=== PATIENT | female | born 1945 | race Caucasian/White ===

== ENCOUNTER → 2023-10-25 14:29 | Outpatient (REF) | payer OTHER, SELFPAY | LOC: HWRAD 14:29 | PROVIDERS: ATTENDING PHYSICIAN Internal Medicine | DX: Z78.0 Asymptomatic menopausal state (principal) | CPT/HCPCS: 77080 ==

== ENCOUNTER 2024-06-13 13:48 | Inpatient (IN) | payer OTHER, SELFPAY ==
[2024-06-13] VITALS (11 sets, daily range): BP systolic 98–143; BP diastolic 51–128; BMI 25.7
[2024-06-13 08:49] LABS: Glucose - Point of Care 93 mg/dl (70-99)
--- NOTE | 2024-06-13 08:55 | ED.GENMED ---
History of Present Illness
General
Chief Complaint: Weakness
Time Seen by Provider: 06/13/24 08:37
History of Present Illness
History of Present Illness:
79-year-old female with history of ulcerative colitis on Remicade presents to the emergency department for evaluation of generalized weakness and diarrhea. He reports it has been worsening since her last Remicade infusion which was approximately 6
weeks ago, she is due for her next infusion in 3 days. She denies any pain. She was noted to be hypoglycemic in the 30s for EMS and given oral glucose. Bedside glucose on arrival is 93. Copious voluminous diarrhea present on arrival, this has
been going on for several days. She reports general p.o. intake has been poor.
Past History
Past History
ED Past Medical History: CVA (September 2016), HTN, Psychiatric (Anxiety, depression), Other (Inflammatory bowel disease, Colitis, Cellulitis,) and Other (Episode of hyponatremia, sodium of 117 September 2016.)
ED Past Surgical History: Appendectomy and Other (Partial large bowel RESECTION)
Social History
Tobacco: Non-smoker
Alcohol: None
Drug: None
Personal:
Living: with family (lives with son)
Employment: Retired
Family History
Family History: Other (Noncontributory)
Review of Systems
Review of Systems
Allergies reviewed?: Yes
All Other Systems: ROS reviewed and negative except as documented in HPI and ROS
Phy Exam
Physical Exam
Physical Exam:
GEN: Ill-appearing, generally pale
HEENT: Oral mucosa moist, no scleral icterus
Cardiac: Regular rate and rhythm, no murmur
Lung: Mildly tachypneic, no respiratory distress otherwise, diminished left lung sounds
Abdomen: Soft, nontender
Rectal: Copious voluminous yellow diarrhea. 2 x 1 cm sacral decubitus ulcer with approximately 1 cm of depth, mild surrounding erythema but no overt cellulitic changes
MSK: No gross deformity or injuries
Skin: Good color, no pallor or jaundice, no rashes
Neuro: Appears weak but is alert, oriented x 3, moves all extremities appropriately but generally weak
Psych: Calm, cooperative
Course
Orders/Labs/Results
Orders:
Orders
06/13/24
Electrocardiogram (*1) Stat
Comment: ALREADY DONE
06/13/24 08:51
Straight cath- Treatment ONCE
06/13/24 08:52
CR Chest Portable - 1 View Urgent
Comment:
Reason For Exam: weakness
Reason Study Needs to be Portable: Other
06/13/24 09:04
Complete Blood Count/With Diff Urgent
Comprehensive Metabolic Panel Urgent
Lipase Urgent
Magnesium Urgent
TSH Urgent
Comment: ADD ON
Urinalysis Reflex To Culture Urgent
Date Specimen was Collected: 06/13/24
Time Specimen was Collected: 09:02
Urine Microscopic Reflex Cult Urgent
Urine Culture Urgent
CROW Source: U
Specimen Description:
Obtained by: Random
Date Specimen was Collected: 06/13/24
Time Specimen was Collected: 09:02
06/13/24 09:33
Add On- LAB Urgent
Tests Added?: TSH
06/13/24 11:06
0.9% Sodium Chloride 500 ml [Nss] 500 ml IV BOLUS
CefTRIAXone [Rocephin] 1,000 mg IV NOW STA
06/13/24 13:22
Admit/Transfer Patient As Directed
Co-Sign Provider:
Level of Care: Inpatient admission
Assign to:: Medical/Surgical
Physician / Group: pineda fall
Diagnosis: acute diarrhea, ?UC
Reason for Hospitalization: poor po intake, iv hydration, ?UC flare
Expected length of stay greater than two midnights?: Yes
ELOS- Estimated Length of Stay in days: 3
I certify the patient meets the requirements for IP care: Yes
PRN Pain Medication Management As Directed
May give lesser potent ordered pain med per pt: Yes
preference::
Protocol:: Medication orders for pain may be administered in a
manner that supports deferring to patient preference
when the pt is:
- Requesting an ordered lesser potent pain medication.
Least to most potent pain medications are defined
as: acetaminophen < NSAID < tramadol < opioids
(morphine, oxycodone, hydromorphone).
- Requesting a lesser dose of the same medication IF
ORDERED.
- Requesting a less intrusive route of administration
if both routes are prescribed by the provider (PO <
IV).
06/13/24 13:33
Code Status As Directed
Resuscitation Status: Full Code
06/13/24 13:36
Abdomen/Pelvis wo Contrast CT [CT Abd/pelvis Wo Iv Cont] Routine
Comment:
Reason For Exam: diarrhea, intermittent eval for ?uc flare
CRP [C-Reactive Protein] Stat
Calprotectin, Fecal [S] Stat
ESR [Erythrocyte Sed Rate] Stat
Norovirus by PCR Stat
CROW Source: Feces/Stool
Specimen Description:
06/13/24 13:37
Stool Culture Routine
CROW Source: Feces/Stool
Specimen Description:
06/13/24 14:00
Dextrose 5%/0.45%Sodchl 1000ML [D5/0.45%NaCl] 1,000 ml IV 84 mls/hr
Flush (0.9% Sodium Chloride) [Flush (Nss)] See Dose Instructions IV PER PROTOCOL
Abnormal Lab Results
06/13/24 06/13/24
09:04 09:43
Hgb 11.8 L g/dL
(12.0-16.0)
MCHC 31.6 L g/dL
(33.0-37.0)
RDW 14.6 H %
(11.5-14.5)
Abs Immat Gran (auto) 0.1 H 10^3/uL
(0-0.05)
Absolute Monos (auto) 0.8 H 10^3/uL
(0.1-0.6)
Immature Gran % 1.2 H %
(0-0.5)
Neutrophils % 41.8 L %
(42.2-75.2)
Monocytes % 11.6 H %
(1.7-9.3)
Eosinophils % 6.3 H %
(0-6)
Carbon Dioxide 20 L mmol/L
(22-30)
BUN 27 H mg/dl
(7-17)
Glucose 133 H mg/dl
(70-99)
Albumin 3.4 L g/dl
(3.5-5.0)
Urine Ketones 3+ A
(Negative)
Ur Occult Blood Reflex 2+ A
(Negative)
Urine Nitrite (Reflex) Positive A
(Negative)
Leukocyte Esterase Rfl 2+ A
(Negative)
Urine RBC 3-6 A /HPF
(0-2)
Urine WBC (Reflex) 11-15 A /HPF
(0-5)
Urine Bacteria (Reflex) Few A
(Negative)
Urine Albumin (Reflex) 2+ A
(Neg - Trace)
POC Glucose 100 H mg/dl
(70-99)
06/13/24 09:04
06/13/24 09:04
Vital Signs
Initial and Last Documented VS:
Initial Vital Signs
Pulse Resp BP
76 17 106/89
06/13/24 08:58 06/13/24 08:58 06/13/24 08:58
Last Documented Vital Signs
Temp Pulse Resp BP Pulse Ox
96.0 F L 89 24 117/97 98
06/13/24 09:09 06/13/24 13:15 06/13/24 13:15 06/13/24 12:00 06/13/24 13:00
MDM/Problems Addressed
MDM/Problems Addressed:
Patient is profoundly weak, this could be in part due to her hypoglycemia which is most likely secondary to poor p.o. intake. Urine does look positive for UTI. Unclear etiology of diarrhea but labs are overall unremarkable. Will admit for IV
antibiotics and further inpatient management
*Critical Care Note
Total Time (30-74mins, 75-104mins- exclusive of procedures): Not Applicable
ED Attending Note
-
Portions of this chart may have been created with voice recognition software.� Occasional wrong word or��sound alike� substitutions may have occurred due to the inherent limitations of voice recognition software.
Discharge Plan
Departure
Patient Disposition: Admit
Date of Disposition: 06/13/24
Time of Disposition: 11:07
Admit to: Med/Surg
Presentation/result/management discussed w/ accepting MD/DO: Hospitalist
Discharge Problem:
Generalized weakness, Urinary tract infection
Interventions
Interventions:
*Risk Screen - Suicide Last Done: 06/13/24 08:37
*General Assessment Last Done: 06/13/24 08:37
*Neglect/Abuse Screening Last Done: 06/13/24 09:06
*ED- Fall Risk Assessment Last Done: 06/13/24 09:03
*ED COVID-19 Vaccine History Last Done: 06/13/24 08:37
ED- Cardiac Assessment Last Done: 06/13/24 08:37
ED- Neurological Assessment Last Done: 06/13/24 08:37
ED- Pulmonary Assessment Last Done: 06/13/24 08:37
[2024-06-13 09:15] LABS: % Basophils 0.3 % (0-2); % Eosinophils 6.3 % (0-6); % Immature Granulocytes 1.2 % (0-0.5); % Lymphocytes 38.8 % (20.5-51.1); % Monocytes 11.6 % (1.7-9.3); % Neutrophils 41.8 % (42.2-75.2); Absolute Eosinophils 0.4 10^3/uL (0-0.7); Absolute Immature Granulocytes 0.1 10^3/uL (0-0.05); Absolute Lymphocytes 2.6 10^3/uL (1.2-3.4); Absolute Monocytes 0.8 10^3/uL (0.1-0.6); Absolute Neutrophils 2.8 10^3/uL (1.4-6.5); Hematocrit 37.4 % (37.0-47.0); Hemoglobin 11.8 g/dL (12.0-16.0); Mean Corp Hgb Conc. 31.6 g/dL (33.0-37.0); Mean Corpuscular Hgb 27.8 pg (27.0-31.0); Mean Platelet Volume 9.8 fL (7.4-10.4); Nucleated Red Blood Cells % 0 %; Platelet Count 284 10^3/uL (130-400); Red Blood Cell Count 4.25 10^6/uL (4.20-5.40); Red Cell Dist. Width 14.6 % (11.5-14.5); White Blood Cell Count 6.8 10^3/uL (4.8-10.8)
[2024-06-13 09:29] LABS: ALT (SGPT) 11 U/L (0-35); AST (SGOT) 26 U/L (14-36); Albumin 3.4 g/dl (3.5-5.0); Alkaline Phosphatase 72 U/L (38-126); Blood Urea Nitrogen 27 mg/dl (7-17); Calcium 8.8 mg/dl (8.4-10.2); Carbon Dioxide 20 mmol/L (22-30); Chloride 104 mmol/L (98-107); Estimated Creatinine Clearance 45 ml/min; Glucose 133 mg/dl (70-99); Magnesium 1.6 mg/dl (1.6-2.3); Potassium 4.3 mmol/L (3.5-5.1); Sodium 138 mmol/L (135-145); Total Bilirubin 0.7 mg/dl (0.2-1.3); Total Protein 6.5 g/dl (6.3-8.2); eGFR > 60.00
[2024-06-13 09:30] LABS: Urine Albumin 2+ (Neg - Trace); Urine Bilirubin Negative (Negative); Urine Character Clear (Clear); Urine Color Yellow; Urine Glucose Negative (Negative); Urine Ketone 3+ (Negative); Urine Leukocyte 2+ (Negative); Urine Nitrite Positive (Negative); Urine Occult Blood 2+ (Negative); Urine Specific Gravity 1.025 (<1.030); Urine Urobilinogen Negative (Neg - 1+)
[2024-06-13 09:44] LABS: Glucose - Point of Care 100 mg/dl (70-99)
[2024-06-13 09:47] LABS: Lipase 50 U/L (23-300)
[2024-06-13 10:39] LABS: Urine Squamous Cell 0-2 /LPF (Few)
[2024-06-13 10:40] LABS: Urine Bacteria Few (Negative)
[2024-06-13 10:58] LABS: TSH 0.98 uIU/ml (0.47-4.68)
[2024-06-13] MEDS: NSS 500 IV (11:23)
[2024-06-13] MEDS: ROCEPHIN 1000 MG IV (11:23)
--- NOTE | 2024-06-13 13:38 | CON.GI ---
Addendum entered and electronically signed by Pedro Rousseau MD 06/13/24 16:45:
QTc 511 will hold zofran and do pepcid bid to see if helps
Addendum entered and electronically signed by Pedro Rousseau MD 06/13/24 16:42:
I added zofran for nausea hold off on PPI
Addendum entered and electronically signed by Pedro Rousseau MD 06/13/24 16:36:
The patient was seen and examined by me independently in collaboration with the nurse practitioner.
Past medical history/social history/medications/allergies/family history reviewed.
Lab data and imaging data reviewed.
Ms. Jones is a 78-year-old female with ulcerative colitis on Remicade 5 mg/kg q8 weeks (started in 2020)�underwent colonoscopy March 2023 with Ward 1previously in remission with good levels and no antibodies. She was previously experiencing
diarrhea back in March/April2023 (and was admitted for this) with ?C diff as stool cultures showed antigen positive but toxin negative and was treated with oral vancomycin. Fecal calprotectin had been significantly elevated at that time
(1040), but has since trended downwards, to 799, and most recently to 321 June 2023 no repeat since then. Now fecal calpro 06/02 1150 - I called pt she was having diarrhea I recommended stool studies. She was too weak to have done so she came to
hospital. She is having 4-6 BM/day, only 1 nocturnal BM, only one episode with blood for the last week. C/o nausea, loss of appetite, 5 lb weight loss. No antibiotics, no sick contacts.
CT ordered by ER limited no po/iv contrast has renal cyst recommend follow up. CRP 85.
Recommendations:
- Stool studies
- If negative, plan steroids (on pred 2 mg at home with history of 'relative adenal insufficiency' saw endocrine in May do not have these records) and flex sig d/w pt agreeable
- Clear liquid diet for now
- Check IFX level/ab tomorrow, due for IFX 06/15 may need high dose 10 mg/kg pending work up/findings I sent msg to pharmacy to ensure we have IFX in stock
Original Note:
Consultation
-
Date/Time Consultation Requested: 06/13/24 1330
Date/Time Consultation Performed: 06/13/24 1400
Requesting Provider: Zak Coyle MD
Performing Provider: ROSLYN Cordova, Sissy Pelayo DO
Reason for Consultation: diarrhea, weakness hx UC
Medical History
Chief Complaint / HPI
Chief Complaint: diarrhea, Nausea, anorexia
History of Present Illness:
Patient is a 79yo with hx CVA, GERD, HTN, hyperlipidemia, anxiety/depression, diverticulosis, osteoarthritis on chronic steroids, gout, anemia with iron deficiency, cellulitis, hyponatremia, prior c-diff infection, vitamin D deficiency, HH, and
long standing ulcerative colitis for many years. She had technician terminal and repeater follow with Dr. Will then switch to Dr. Rousseau. She has been technician terminal and repeater Mesalamine than admitted in 2020 with flare requiring start of Remicade and noted C-diff ag + tox neg with
treatment. She has colonoscopy in March 2023 with ward 1 and remission with good levels and no antibodies. When seen last in office in March 2024 she was having 1 loose stool per week. Her fecal calpro improved with Remicade used down to
321 06/2023 then most recent testing up to 1150 in May. She now admits to increased non bloody diarrhea over last 6 week. She was recommended stool studies but states she was too weak to complete. She was also due for Infliximab level 06/15.
She admits to few lbs wt loss, decreased appetite and increased nausea.
She now admits to 4-5 watery stools daily with frequency and urgency. She denies dysphagia, GERD, vomiting, abdominal pain, constipation or rectal bleeding. She denies recent travel, abx or sick contacts. On admission lab with hbg 11.8,
platelet 284, WBC 6.8, stable chemistry with creat 0.8, glucose 133, albumin 3.[address], CRP and ESR pending to be done.
--03/30/23 Colonoscopy, Dr. Villar: The examined portion of the ileum was normal. Pancolitis ulcerative colitis. Inflammation was found from the rectum to the cecum. This was graded as Ward Score 1 (mild disease). Biopsied. Internal hemorrhoids. Bx
showed chronic moderately active colitis.
--02/18/2021 colonoscopy, Dr. Rousseau: Fair prep. Ileum appeared normal. Moderately active Ward score 2 ulcerative pancolitis. A single solitary ulcer in the rectum. Internal hemorrhoids. Colonic biopsies showing mild to moderate chronic active
colitis. Small intestinal biopsies negative.
Past Medical History
Past Medical History: CVA, GERD, HTN, Hypercholesterolemia, Psychiatric (anxiety/depression) and Other (Ulcerative colitis longstanding(1998), diverticulosis, osteoarthritis, gout, anemia with iron deficiency, cellulitis, hyponatriemia, prior
c-diff infection, vitamin D deficiency, HH)
Past Surgical History: Appendectomy, , Orthopedic (carpel tunnel ) and Other (partial large bowel resection, thigh abscess, cataract surgery)
Social History
Tobacco: Non-Smoker
Alcohol: None
Drug: None
Living: With Family (lives with son)
Employment: Retired
Family History
Family History: Other (no family hx Ulcerative colitis or crohns )
Allergies / Home Medications
Allergy/AdvReac Type Severity Reaction Status Date / Time
No Known Allergies Allergy Verified 03/24/23 09:45
�Medication �Instructions �Recorded
atorvastatin 40 mg tablet 40 mg PO QPM High cholesterol 11/28/18
fluoxetine 10 mg capsule 10 mg PO DAILY #30 caps 07/22/19
potassium chloride 20 mEq 20 meq PO DAILY Electrolyte 02/09/21
tablet,extended Repletion
release(part/cryst) (Klor-Con M)
infliximab 100 mg intravenous 100 mg IV Q7W Ulcerative colitis 03/24/23
solution (Remicade)
oxybutynin chloride 5 mg tablet 5 mg PO DAILY Urinary Issue 03/24/23
Lactobac no.2-Bifidobac no.1-S. 1 cap PO DAILY 06/13/24
thermo 112.5 billion cell capsule
(Visbiome)
acetaminophen 325 mg tablet 650 mg PO Q6HPRN PRN mild pain 06/13/24
(Tylenol)
ascorbic acid (vitamin C) 1,000 mg 1,000 mg PO DAILY 06/13/24
tablet (Vitamin C)
biotin 10,000 mcg chewable tablet 10,000 mcg PO DAILY 06/13/24
(Hair, Skin and Nails (biotin))
calcium carbonate 1,000 mg PO DAILY 06/13/24
magnesium oxide 200 mg PO DAILY 06/13/24
oxybutynin chloride 10 mg 10 mg PO QPM 06/13/24
tablet,extended release 24 hr
prednisone 1 mg tablet 2 mg PO DAILY 06/13/24
zinc sulfate 50 mg zinc (220 mg) 50 mg PO DAILY 06/13/24
tablet
Review of Systems
-
History Source: Patient
Constitutional: Reports Weight Loss (few lbs ) and Fatigue
EENT: Reports No Symptoms
Respiratory: Reports No Symptoms
Cardiac: Reports No Symptoms
Abdomen/GI: Reports Nausea and Diarrhea (with frequency and urgency )
: Reports No Symptoms
Musculoskeletal: Reports Joint Pain
Skin: Reports No Symptoms
Neurological: Reports Weakness
Endocrine: Reports No Symptoms
Hematologic/Lymphatic: Reports No Symptoms
Vital Signs
Temp Pulse Resp BP Pulse Ox
96.0 F L 89 24 117/97 98
06/13/24 09:09 06/13/24 13:15 06/13/24 13:15 06/13/24 12:00 06/13/24 13:00
Physical Exam
Exam
General: Other (pale and weak appearing )
HEENT: Normocephalic
Respiratory: Clear
Cardiac: Regular Rhythm
GI: Soft, Non Tender and Non Distended
Musculoskeletal: No Clubbing and No Cyanosis
Skin: Warm and Dry
Neuro: Awake, Alert and AO x 3
Psych: Calm
Results
WBC 6.8 10^3/uL (4.8-10.8) 06/13/24 09:04
Hgb 11.8 g/dL (12.0-16.0) L 06/13/24 09:04
Hct 37.4 % (37.0-47.0) 06/13/24 09:04
MCV 88.0 fL (81.0-99.0) 06/13/24 09:04
Plt Count 284 10^3/uL (130-400) 06/13/24 09:04
Absolute Neuts (auto) 2.8 10^3/uL (1.4-6.5) 06/13/24 09:04
Sodium 138 mmol/L (135-145) 06/13/24 09:04
Potassium 4.3 mmol/L (3.5-5.1) 06/13/24 09:04
Chloride 104 mmol/L (98-107) 06/13/24 09:04
Carbon Dioxide 20 mmol/L (22-30) L 06/13/24 09:04
BUN 27 mg/dl (7-17) H 06/13/24 09:04
Creatinine 0.8 mg/dL (0.6-1.0) 06/13/24 09:04
Calcium 8.8 mg/dl (8.4-10.2) 06/13/24 09:04
Total Bilirubin 0.7 mg/dl (0.2-1.3) 06/13/24 09:04
AST 26 U/L (14-36) 06/13/24 09:04
ALT 11 U/L (0-35) 06/13/24 09:04
Alkaline Phosphatase 72 U/L (38-126) 06/13/24 09:04
Lipase 50 U/L (23-300) 06/13/24 09:04
Diagnostic Image Results:
06/13/24 CT pending
Prior GI Procedures:
EGD: 01/2016 will - Z-line regular, 33 cm from the incisors.
- Medium-sized hiatus hernia.
- Chronic gastritis. Biopsied.
- Acute duodenitis. Biopsied.
bx neg h pylori, celiac, metaplasia
Colonoscopy:
--03/30/23 Colonoscopy, Dr. Villar: The examined portion of the ileum was normal. Pancolitis ulcerative colitis. Inflammation was found from the rectum to the cecum. This was graded as Ward Score 1 (mild disease). Biopsied. Internal hemorrhoids. Bx
showed chronic moderately active colitis.
--02/18/2021 colonoscopy, Dr. Rousseau: Fair prep. Ileum appeared normal. Moderately active Ward score 2 ulcerative pancolitis. A single solitary ulcer in the rectum. Internal hemorrhoids. Colonic biopsies showing mild to moderate chronic active
colitis. Small intestinal biopsies negative.
Assessment / Plan
-
Patient is a 79yo with hx CVA, GERD, HTN, hyperlipidemia, anxiety/depression, diverticulosis, osteoarthritis on chronic steroids, gout, anemia with iron deficiency, cellulitis, hyponatremia, prior c-diff infection, vitamin D deficiency, HH, and
long standing ulcerative colitis for many years. She had skilled nursing follow with Dr. Will then switch to Dr. Rousseau. She has been technician terminal and repeater Mesalamine than admitted in 2020 with flare requiring start of Remicade and noted C-diff ag + tox neg with
treatment. She has colonoscopy in March 2023 with ward 1 and remission with good levels and no antibodies. When seen last in office in March 2024 she was having 1 loose stool per week. Her fecal calpro improved with Remicade used down to
321 06/2023 then most recent testing up to 1150 in May. She now admits to increased non bloody diarrhea over last 6 week. She was recommended stool studies but states she was too weak to complete. She was also due for Infliximab level 06/15.
She admits to few lbs wt loss, decreased appetite and increased nausea.
-diarrhea/weakness
-nausea with decreased appetite
-hx ulcerative colitis with elevated fecal sherin 1150 in May 2024
-chronic steroid use with hx UC and osteoarthritis
-hx anemia with iron deficiency
other med problems:
-CVA
-GERD/hx HH per prior EGD
-HTN
-hyperlipidemia
-anxiety/depression
-diverticulosis
-gout
-hx cellulitis
-prior c-diff infection
PLAN:etiology of diarrhea related to infectious etiology, vs UC flare vs other
She also has decreased appetite and nausea with K replacement and oral steroids
check stool studies to rule out c-diff or other infectious etiology
CT pending to be done
CRP, ESR pending recent fecal sherin 1150 done outpatient
agree wit hydration
keep electrolytes corrected
will hold oral mag with diarrhea and check in AM -- give IV for now if needed
add PPI daily with nausea --pt has been on oral K and steroids if nausea not improving consider EGD
t/c IV steroid course if stools neg-- pt was on chronic prednisone 2 mg prior to admission
t/c flex if not improving
due Infliximab level 06/15-- last dose at home infusion about 6 weeks ago
ok for clear diet will add supplement daily
antiemetics
will follow
-
-
Thank you for consultation and allowing me to participate in the patient's care. Please call the senior recruitment consultant GI physician during the after hours with any questions or concerns.
--- NOTE | 2024-06-13 13:50 | HPS.HSE ---
Family Physician
-
Family Physician: Hannah Decker DO
Chief Complaint
-
weakness/ poor po intake
History of Present Illness
79 female history of ulcerative colitis on Remicade q. 7 weeks, failure to thrive, stroke, hypertension, anxiety depression, GERD presents for weakness and poor p.o. intake that has been progressively getting worse over the last 1.5 weeks that has
been associated with watery very loose stools, 3-5 BMs daily. PRV eating due to diarrhea however diarrhea persist even when she does not eat. Additionally, wakes her up from her sleep to have to go take a bowel movement. Nothing makes this
diarrhea better.
Preadmission labs hypoglycemia in the 30s
While in the ED hypothermic to 96.0 otherwise hemodynamically stable, CBC unremarkable apart from hemoglobin 11.8 along with a BMP that is unremarkable apart from a bicarb of 20, BUN of 27, glucose of 133 with albumin of 3.4 and a [id number]
glucose of 100. Urine analysis demonstrating 3+ ketones, 2+ blood, positive nitrites, leuk esterase 2+, RBC 3-6, white blood cell 11-15, bacteria few, albumin 2+. Was provided with IV fluids IV antibiotics for treatment of UTI though does not have
symptoms of a UTI as there is no dysuria flank pain urinary frequency.
Social history does not smoke drink alcohol or use drugs
Lives with her family
Surgical history appendectomy carpal tunnel surgery cataract surgery x 2, partial colon resection
Medical History
Past Medical History
Past Medical History: Reports GERD, HTN and Hypercholesterolemia
Past Surgical History: Reports Appendectomy
Social History
Tobacco: Non-smoker
Alcohol: None
Drug: None
Living: With Family
Family History
Family History: Not pertinent
Allergies / Home Medications
Allergies reflects when Allergies were last updated in [facility].
Home Medications with original date entered in [facility]
Allergy/Medication List:
Allergies
Allergy/AdvReac Type Severity Reaction Status Date / Time
No Known Allergies Allergy Verified 03/24/23 09:45
Home Medications
atorvastatin 40 mg tablet 40 mg PO QPM High cholesterol 11/28/18
fluoxetine 10 mg capsule 10 mg PO DAILY #30 caps 07/22/19
potassium chloride 20 mEq tablet,extended release(part/cryst) (Klor-Con M) 20 meq PO DAILY Electrolyte Repletion 02/09/21
infliximab 100 mg intravenous solution (Remicade) 100 mg IV Q7W Ulcerative colitis 03/24/23
oxybutynin chloride 5 mg tablet 5 mg PO DAILY Urinary Issue 03/24/23
Lactobac no.2-Bifidobac no.1-S. thermo 112.5 billion cell capsule (Visbiome) 1 cap PO DAILY 06/13/24
acetaminophen 325 mg tablet (Tylenol) 650 mg PO Q6HPRN PRN mild pain 06/13/24
ascorbic acid (vitamin C) 1,000 mg tablet (Vitamin C) 1,000 mg PO DAILY 06/13/24
biotin 10,000 mcg chewable tablet (Hair, Skin and Nails (biotin)) 10,000 mcg PO DAILY 06/13/24
calcium carbonate 1,000 mg PO DAILY 06/13/24
magnesium oxide 200 mg PO DAILY 06/13/24
oxybutynin chloride 10 mg tablet,extended release 24 hr 10 mg PO QPM 06/13/24
prednisone 1 mg tablet 2 mg PO DAILY 06/13/24
zinc sulfate 50 mg zinc (220 mg) tablet 50 mg PO DAILY 06/13/24
Review of Systems
-
A 12 point ROS was completed and negative except as noted: Yes
Physical Exam
Vital Signs
Vital Signs
Temp Pulse Resp BP Pulse Ox
96.0 F L 89 24 117/97 98
06/13/24 09:09 06/13/24 13:15 06/13/24 13:15 06/13/24 12:00 06/13/24 13:00
Physical Exam
General: No Apparent Distress, Chills and Poor Appetite
Laboratory Results
-
06/13/24 09:04
06/13/24 09:04
Laboratory Results
Total Bilirubin 0.7 mg/dl (0.2-1.3) 06/13/24 09:04
AST 26 U/L (14-36) 06/13/24 09:04
ALT 11 U/L (0-35) 06/13/24 09:04
Alkaline Phosphatase 72 U/L (38-126) 06/13/24 09:04
Lipase 50 U/L (23-300) 06/13/24 09:04
Impression/Plan
-
NAD, cold under 3 blankets
Scleral Anicteric
DMM
No JVD
CTABL
RRR, S1/S2
Soft, NT, ND, BS+
Warm, Dry
AAOx3
Calm
Starvation ketosis
Begin dextrose containing fluids
Begin clear liquid diet
Diarrhea which could be infectious versus inflammatory
Check CT abdomen pelvis
C. difficile, norovirus, stool culture
ESR/CRP and fecal calprotectin
IV fluids
Would hold off on IV antibiotics at this time
Consult gastroenterology
Ulcerative colitis
On Remicade every 6/7-week dosing along with daily prednisone dosing 2 mg daily
Hypoglycemia
Not on insulin however has had poor p.o. intake over the last 1.5 weeks with her absorption.
Began dextrose containing fluids
Hypothermia
Could be related to infectious
Will check TSH
Will check a cortisol however on chronic steroid with prednisone therefore likely will skew data. Additionally, can explain hypoglycemia which is likely related to poor p.o. intake/failure to thrive along with evidence of hyponatremia to suspect
adrenal insufficiency as a cause and therefore we will continue prednisone will not hold it and will not check a cortisol at this time. Clinical status changes then we will proceed
As there is no other evidence of SIRS apart from this hypothermia we will hold off on obtaining blood cultures
Asymptomatic bacteriuria
Will not treat at this time
Anxiety/depression
Continue SSRI
GERD
Continue PPI
Hyperlipidemia
Continue statin
[2024-06-13] MEDS: D5/0.45%NACL 1000 IV (13:53)
[2024-06-13 16:23] LABS: Erythrocyte Sed Rate 50 mm/hour (0-20)
[2024-06-13] MEDS: NSS 1000 IV (17:58)
[2024-06-13] MEDS: LIPITOR 40 MG PO (17:59)
[2024-06-13] MEDS: LOVENOX 30 MG SC (18:00)
--- NOTE | 2024-06-13 19:30 | PTCARENOTE ---
Pt had both IV NS and IV D5/0.45% NS ordered; poor appetite and nausea. LIN Briscoe notified, will continue IV NS and d/c IV D5/0.45% NS.
[2024-06-13] MEDS: PEPCID 20 MG PO (21:30)
[2024-06-13] MEDS: DITROPAN 5 MG PO (21:30)
[2024-06-14] MEDS: ZOFRAN 4 MG IV (00:40)
[2024-06-14] MEDS: NSS 1000 IV (05:59)
[2024-06-14 07:52] LABS: Hematocrit 31.9 % (37.0-47.0); Hemoglobin 10.1 g/dL (12.0-16.0); Mean Corp Hgb Conc. 31.7 g/dL (33.0-37.0); Mean Corpuscular Volume 88.4 fL (81.0-99.0); Mean Platelet Volume 10.2 fL (7.4-10.4); Platelet Count 267 10^3/uL (130-400); Red Blood Cell Count 3.61 10^6/uL (4.20-5.40); Red Cell Dist. Width 14.4 % (11.5-14.5); White Blood Cell Count 7.6 10^3/uL (4.8-10.8)
[2024-06-14 07:57] VITALS: BP 129/61
[2024-06-14 08:18] LABS: Blood Urea Nitrogen 21 mg/dl (7-17); Calcium 7.4 mg/dl (8.4-10.2); Carbon Dioxide 17 mmol/L (22-30); Chloride 106 mmol/L (98-107); Estimated Creatinine Clearance 52 ml/min; Glucose < 30 mg/dl (70-99); Magnesium 1.3 mg/dl (1.6-2.3); Sodium 137 mmol/L (135-145); eGFR > 60.00
[2024-06-14 08:41] LABS: Glucose - Point of Care 49 mg/dl (70-99)
[2024-06-14 08:44] LABS: TSH Reflex To Free T4 0.53 uIU/ml (0.47-4.68)
--- NOTE | 2024-06-14 09:15 | WOUNDNOTE ---
[facility] RN note: Patient admitted with acute diarrhea. Patient lives with her son who does her wound care.
See H&P for complete history.
PMH: UC, on Remicade/prednisone, failure to thrive, CVA, HTN, anxiety/depression, appendectomy.
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 L shoulder few
small scabbed abrasions. Groin/chelsea MASD.
Appetite: poor.
Pressure redistribution devices in place: [employer] Accumax. RN Will agreeable to static air overlay. Patient is able to turn self in bed. Patient stated she does not try to get out of bed by herself.
Plan: Patient incontinent of loose brown stool x 2. Chelsea care given, sacral dressing changed, static air overlay applied and patient turned to R semi side lying position with help from PCT Mary. Heels off bed with air chair cushion. Patient stated
she does not want an air mattress at home. Instructed patient pressure injury prevention measures.
Will confirm orders with Dr. Coyle and updated RN Will.
Care plan to be updated and will follow as needed.
Note to case management of equipment requested for discharge: Air mattress at SNF or home if she accepts hospital bed with air mattress at home.
Recommend follow up at wound care center upon discharge.
--- NOTE | 2024-06-14 09:30 | WOUNDNOTE ---
[facility] (with photo flash)
--- NOTE | 2024-06-14 09:54 | CM ---
CM reviewed chart, patient admitted for weakness and poor p.o. intake. Patient seen bedside, initial assessment completed. Patient resides with her son in a multiple story home, bedroom on second floor, chair lift up the stairs, two steps to enter
home. Patient reports having a wheelchair, walker, and cane at home. Patient reports she has had VN in the past, reports a bad experience at SNF in the past and refuses to return. Patient currently on O2, does not wear home O2. Patient PCP Hannah
Jeronimo, pharmacy [facility] [place], [place]. CM will continue to follow for all discharge planning needs.
Plan; watch for home O2 needs, watch for VN needs.
[2024-06-14] MEDS: DELTASONE 2 MG PO (10:13)
[2024-06-14] MEDS: OSCAL CAL 500 1000 MG PO (10:14)
[2024-06-14] MEDS: VISBIOME 1 CAP PO (10:14)
[2024-06-14] MEDS: PROZAC 10 MG PO (10:14)
[2024-06-14] MEDS: DITROPAN 5 MG PO ×2 (10:14→20:26)
[2024-06-14] MEDS: ZINC 50 MG PO (10:14)
[2024-06-14] MEDS: VITAMIN C 1000 MG PO (10:15)
[2024-06-14] MEDS: D5/0.45%NACL 1000 IV ×2 (10:16→21:33)
[2024-06-14 10:18] LABS: Glucose - Point of Care 109 mg/dl (70-99)
--- NOTE | 2024-06-14 10:30 | WOUNDNOTE ---
[facility] RN note: t/c Radiology. Spoke with Dr. Madi Blevins who stated the 06/13/24 abdominal/pelvic CT scan shows erosion in coccyx region, no change from old study timeframe suggesting chronic osteomyelitis. Updated Dr. Zak Coyle who approved
local wound care, air overlay or air mattress orders. Care plan to be updated.
--- NOTE | 2024-06-14 12:34 | W.PN.GI.CBS2 ---
Addendum entered and electronically signed by Sissy Pelayo DO 06/14/24 13:24:
primary team is not treating the urine since she's asymptomatic
starting steroids
Original Note:
Today's Communication / Plan
-
-- primary to treat ?UTI (sent primary team a TT)
-- collect cdiff sample SHELTON (discussed with Will)
-- start IV steroids
-- flex sig tomorrow
Assessment / Plan
-
Patient is a 79yo with hx CVA, GERD, HTN, hyperlipidemia, anxiety/depression, diverticulosis, osteoarthritis on chronic steroids, gout, anemia with iron deficiency, cellulitis, hyponatremia, prior c-diff infection, vitamin D deficiency, HH, and
long standing ulcerative colitis for many years. She had detention follow with Dr. Will then switch to Dr. Rousseau. She has been detention Mesalamine than admitted in 2020 with flare requiring start of Remicade and noted C-diff ag + tox neg with
treatment. She has colonoscopy in March 2023 with syed 1 and remission with good levels and no antibodies. When seen last in office in March 2024 she was having 1 loose stool per week. Her fecal calpro improved with Remicade used down to
321 06/2023 then most recent testing up to 1150 in May. She now admits to increased non bloody diarrhea over last 6 week. She was recommended stool studies but states she was too weak to complete. She was also due for Infliximab level 06/15.
She admits to few lbs wt loss, decreased appetite and increased nausea.
-diarrhea/weakness
-nausea with decreased appetite
-hx ulcerative colitis with elevated fecal sherin 1150 in May 2024
-chronic steroid use with hx UC and osteoarthritis
-hx anemia with iron deficiency
other med problems:
-CVA
-GERD/hx HH per prior EGD
-HTN
-hyperlipidemia
-anxiety/depression
-diverticulosis
-gout
-hx cellulitis
-prior c-diff infection
06/14/24 CT without IV or PO contrast:
Markedly limited based on lack of IV and oral contrast and some respiratory motion and artifact. No gross wall thickening of the GI tract and no surrounding stranding. Moderate size hiatal hernia soft tissue prominence around the coccygeal
segments cannot exclude pressure ulcer
#weak/multiple mucoid stools With history of longstanding ulcerative colitis on Remicade
-- infectious vs inflammatory
-- Patient absolutely needs a C. difficile collected and sent
--Urine concerning for infection which needs treated especially before I started her on higher dose steroids
--Plan for flexible sigmoidoscopy tomorrow
--Trend CRP
-- monitor glucose, BMP <30, most recent >100
-- give IV iron with hx of INGA
-- on famotidine (hx of cdiff)
-- diet as tolerated
-- due for Infliximab on 06/15 - gets home infusions
-- pending flex and infection treatment potentially to give her 10mg/kg here tomorrow
#urine +e coli
-- not currently on antibiotics
-- I sent a message to the primary team to address, especially prior to getting steroids
Subjective
Subjective
Date of Service: June 14, 2024
Patient feels weak. Multiple incontinent of gelatinous mucoid stools. Denies dysuria.
Objective
Data Reviewed
Laboratory Data:
Laboratory Results
06/14/24 06:27
06/14/24 06:27
Laboratory Results
Magnesium 1.3 mg/dl (1.6-2.3) L 06/14/24 06:27
Total Bilirubin 0.7 mg/dl (0.2-1.3) 06/13/24 09:04
AST 26 U/L (14-36) 06/13/24 09:04
ALT 11 U/L (0-35) 06/13/24 09:04
Alkaline Phosphatase 72 U/L (38-126) 06/13/24 09:04
Lipase 50 U/L (23-300) 06/13/24 09:04
Vital Signs and I&O:
Vital Signs
Temp Pulse Resp BP Pulse Ox
97.8 F 76 18 129/61 95
06/14/24 07:57 06/14/24 07:57 06/14/24 07:57 06/14/24 07:57 06/14/24 07:57
I&O
06/13/24 06/14/24 06/15/24
06:59 06:59 06:59
Intake Total 1280 / 1280
Balance 1280 / 1280
Physical Exam
Physical Exam
HEENT: Anicteric
Cardiology: Normal Sinus Rhythm
Pulmonary: Clear
GI: Soft, Non Distended and Non Tender
Extremities: No Edema
Neuro: Non Focal
--- NOTE | 2024-06-14 13:20 | W.PN.HOSP.TC ---
Today's Communication/Plan
-
repear cdiff ordered
if negative likely will start steroids
Assessment / Plan
Assessment / Plan
NAD, cold under 3 blankets
Scleral Anicteric
DMM
No JVD
CTABL
RRR, S1/S2
Soft, NT, ND, BS+
Warm, Dry
AAOx3
Calm
Starvation ketosis
Continue dextrose containing fluids
Begin clear liquid diet
Diarrhea which could be infectious versus inflammatory
Check CT abdomen pelvis
C. difficile, norovirus, stool culture
Both ESR CRP are up
IV fluids
Would hold off on IV antibiotics at this time
GI awaiting stool cultures to start steroids
Ulcerative colitis
On Remicade every 6/7-week dosing along with daily prednisone dosing 2 mg daily
Hypoglycemia
Not on insulin however has had poor p.o. intake over the last 1.5 weeks with her absorption.
Began dextrose containing fluids
Hypothermia
Could be related to infectious
TSH 0.53
Will check a cortisol however on chronic steroid with prednisone therefore likely will skew data. Additionally, can explain hypoglycemia which is likely related to poor p.o. intake/failure to thrive along with evidence of hyponatremia to suspect
adrenal insufficiency as a cause and therefore we will continue prednisone will not hold it and will not check a cortisol at this time. Clinical status changes then we will proceed
As there is no other evidence of SIRS apart from this hypothermia we will hold off on obtaining blood cultures
Asymptomatic bacteriuria
Will not treat at this time
Anxiety/depression
Continue SSRI
GERD
Continue PPI
Hyperlipidemia
Continue statin
Anticipated Discharge: > 48 hours
Subjective/Interval History
-
Date of Service: June 14, 2024
Seen and examined. No new complaints. No acute overnight events.
No suprapubic tenderness, no urinary frequency, no dysuria
Objective Data
-
Labs:
Laboratory Results
06/14/24
06:27
WBC 7.6
Hgb 10.1 L
Hct 31.9 L
Plt Count 267
Sodium 137
Potassium 4.0
Chloride 106
Carbon Dioxide 17 L
BUN 21 H
Creatinine 0.7
Glucose < 30 L*
Calcium 7.4 L
Vital Signs:
Vital Signs
Temp Pulse Resp BP Pulse Ox
97.8 F 76 18 129/61 95
06/14/24 07:57 06/14/24 07:57 06/14/24 07:57 06/14/24 07:57 06/14/24 07:57
I&O
06/13/24 06/14/24 06/15/24
06:59 06:59 06:59
Intake Total 1280 / 1280
Balance 1280 / 1280
[2024-06-14] MEDS: FERRLECIT 110 MG IV (14:35)
[2024-06-14 15:58] VITALS: BP 112/45
--- NOTE | 2024-06-14 16:27 | WOUNDNOTE ---
[facility] RN Note: Arthur Painter re: recommend an air mattress at SNF/rehab. She has a chronic stage 4 sacral/coccyx pressure injury. She said she declined an air bed at home before. Recommend VN if she goes home.
[2024-06-14 17:00] VITALS: BMI 25.7
[2024-06-14] MEDS: SOLU-MEDROL PF 20 MG IV (17:06)
[2024-06-14] MEDS: LIPITOR 40 MG PO (17:09)
[2024-06-14] MEDS: LOVENOX 30 MG SC (17:09)
[2024-06-14] MEDS: PEPCID 20 MG PO (20:26)
[2024-06-14] MEDS: DESENEX/MITRAZOL/ZEASORB 1 APPLIC TOPICAL (21:32)
[2024-06-14 23:08] LABS: Glucose - Point of Care 263 mg/dl (70-99)
[2024-06-14 23:30] VITALS: BP 121/56
[2024-06-15] MEDS: SOLU-MEDROL PF 20 MG IV ×3 (00:32→16:40)
[2024-06-15 03:16] LABS: Glucose - Point of Care 266 mg/dl (70-99)
[2024-06-15 07:39] VITALS: BP 143/73
[2024-06-15 07:40] LABS: Hematocrit 31.6 % (37.0-47.0); Hemoglobin 10.4 g/dL (12.0-16.0); Mean Corp Hgb Conc. 32.9 g/dL (33.0-37.0); Mean Corpuscular Hgb 28.1 pg (27.0-31.0); Mean Corpuscular Volume 85.4 fL (81.0-99.0); Platelet Count 252 10^3/uL (130-400); Red Cell Dist. Width 13.6 % (11.5-14.5); White Blood Cell Count 3.7 10^3/uL (4.8-10.8)
[2024-06-15 08:14] LABS: Blood Urea Nitrogen 12 mg/dl (7-17); Calcium 7.5 mg/dl (8.4-10.2); Carbon Dioxide 20 mmol/L (22-30); Chloride 105 mmol/L (98-107); Estimated Creatinine Clearance 60 ml/min; Glucose 284 mg/dl (70-99); Iron 132 ug/dl (37-170); Sodium 133 mmol/L (135-145); eGFR > 60.00
[2024-06-15 11:36] VITALS: BP 113/59
[2024-06-15 11:45] VITALS: BP 134/64
[2024-06-15 11:54] VITALS: BP 155/72
[2024-06-15] MEDS: OSCAL CAL 500 1000 MG PO (12:36)
[2024-06-15] MEDS: ZINC 50 MG PO (12:36)
[2024-06-15] MEDS: PROZAC 10 MG PO (12:38)
[2024-06-15] MEDS: VITAMIN C 1000 MG PO (12:38)
[2024-06-15] MEDS: VISBIOME 1 CAP PO (12:39)
[2024-06-15] MEDS: DITROPAN 5 MG PO ×2 (12:39→19:57)
--- NOTE | 2024-06-15 13:23 | W.PN.HOSP.TC ---
Addendum entered and electronically signed by Zak Coyle MD 06/15/24 14:07:
Hyperglycemia no history of of diabetes. Likely related to steroids.
Accu-Cheks
Check A1c in the morning
Encourage p.o. intake
Original Note:
Today's Communication/Plan
-
Assessment / Plan
Assessment / Plan
NAD, cold under 3 blankets
Scleral Anicteric
DMM
No JVD
CTABL
RRR, S1/S2
Soft, NT, ND, BS+
Warm, Dry
AAOx3
Calm
Starvation ketosis
Improving
Tolerating diet
Diarrhea which could be infectious versus inflammatory
Check CT abdomen pelvis
C. difficile, norovirus, stool culture negsative
Both ESR CRP are up
IV fluids
Would hold off on IV antibiotics at this time
GI followign
IV stgeroids
C-scope
Ulcerative colitis
On Remicade every 6/7-week dosing along with daily prednisone dosing 2 mg daily
Hypoglycemia
Not on insulin however has had poor p.o. intake over the last 1.5 weeks with her absorption.
Began dextrose containing fluids
Hypothermia
Could be related to infectious
TSH 0.53
Will check a cortisol however on chronic steroid with prednisone therefore likely will skew data. Additionally, can explain hypoglycemia which is likely related to poor p.o. intake/failure to thrive along with evidence of hyponatremia to suspect
adrenal insufficiency as a cause and therefore we will continue prednisone will not hold it and will not check a cortisol at this time. Clinical status changes then we will proceed
As there is no other evidence of SIRS apart from this hypothermia we will hold off on obtaining blood cultures
Asymptomatic bacteriuria
Will not treat at this time
Anxiety/depression
Continue SSRI
GERD
Continue PPI
Hyperlipidemia
Continue statin
Anticipated Discharge: > 48 hours
Anticipated Discharge: > 48 hours
Subjective/Interval History
-
Date of Service: June 15, 2024
seen and examined. no new complaints. no acute ovenright events
Objective Data
-
Labs:
Laboratory Results
06/15/24
06:55
WBC 3.7 L
Hgb 10.4 L
Hct 31.6 L
Plt Count 252
Sodium 133 L
Potassium 4.0
Chloride 105
Carbon Dioxide 20 L
BUN 12
Creatinine 0.5 L
Glucose 284 H
Calcium 7.5 L
Vital Signs:
Vital Signs
Temp Pulse Resp BP Pulse Ox
98.0 F 79 13 155/72 95
06/15/24 11:51 06/15/24 11:54 06/15/24 11:54 06/15/24 11:54 06/15/24 11:37
I&O
06/14/24 06/15/24 06/16/24
06:59 06:59 06:59
Intake Total 1520 / 2840 1320 / 1320
Balance 1520 / 2840 1320 / 1320
[2024-06-15] MEDS: DESENEX/MITRAZOL/ZEASORB 1 APPLIC TOPICAL ×2 (13:58→19:58)
[2024-06-15] MEDS: REMICADE 250 MG IV (13:59)
[2024-06-15] MEDS: D5/0.45%NACL IV (14:23)
--- NOTE | 2024-06-15 14:56 | CM ---
CM reviewed chart, patient may benefit from PT/OT evaluations, TT to Hospitalist for orders. Per Wound Care Nurse, recommending air mattress if discharged to SNF, VN if d.c home. CM will continue to follow for all discharge planning needs.
Plan; will await PT/OT evaluations for further recommendations, likely will need SNF.
[2024-06-15 15:15] VITALS: BP 143/73
--- NOTE | 2024-06-15 15:44 | PN.CDI ---
CDI
- -
CDI:
Physician Documentation Request
Admit Date: 06/13/24 13:48
Dear Doctor Leonides,
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
Physician documentation of the type and location of wounds is required for compliant documentation. Based on the above clinical findings and your assessment, please provide the following in your progress note:
1. Location of the ulcer/wound, including laterality.
2. Type (etiology) of ulcer/wound:
- Traumatic wound
- Pressure (decubitus) ulcer
- Other
Use of terms such as suspected, likely, concern for, or probable (associated with a specific diagnosis that is being evaluated, monitored, or treated as if it exists) are acceptable and can be coded in the inpatient setting, when documented at the
time of discharge.
Thank you,
Emily Sanchez RN, BSN
CDI Specialist
tiger text
Please use your independent medical judgment in providing your response.
*Source: National Pressure Ulcer Advisory Panel (NPUAP)
[2024-06-15] MEDS: LOVENOX 40 MG SC (16:40)
[2024-06-15] MEDS: LIPITOR 40 MG PO (16:40)
[2024-06-15] MEDS: FERRLECIT 110 MG IV (16:40)
[2024-06-15] MEDS: PEPCID 20 MG PO (19:57)
[2024-06-15 22:58] VITALS: BP 125/66
[2024-06-16] MEDS: SOLU-MEDROL PF 20 MG IV ×4 (00:23→23:11)
[2024-06-16 07:19] LABS: Hematocrit 31.1 % (37.0-47.0); Hemoglobin 10.4 g/dL (12.0-16.0); Mean Corp Hgb Conc. 33.4 g/dL (33.0-37.0); Mean Corpuscular Hgb 27.6 pg (27.0-31.0); Mean Corpuscular Volume 82.5 fL (81.0-99.0); Mean Platelet Volume 9.6 fL (7.4-10.4); Platelet Count 261 10^3/uL (130-400); Red Blood Cell Count 3.77 10^6/uL (4.20-5.40); Red Cell Dist. Width 13.7 % (11.5-14.5); White Blood Cell Count 7.6 10^3/uL (4.8-10.8)
[2024-06-16 07:25] VITALS: BP 138/71
[2024-06-16 07:41] LABS: Blood Urea Nitrogen 12 mg/dl (7-17); Calcium 8.2 mg/dl (8.4-10.2); Carbon Dioxide 22 mmol/L (22-30); Chloride 111 mmol/L (98-107); Estimated Creatinine Clearance 60 ml/min; Glucose 147 mg/dl (70-99); Potassium 3.9 mmol/L (3.5-5.1); Sodium 139 mmol/L (135-145); eGFR > 60.00
[2024-06-16] MEDS: OSCAL CAL 500 1000 MG PO (09:23)
[2024-06-16] MEDS: ZINC 50 MG PO (09:24)
[2024-06-16] MEDS: VITAMIN C 1000 MG PO (09:26)
[2024-06-16] MEDS: VISBIOME 1 CAP PO (09:26)
[2024-06-16] MEDS: PROZAC 10 MG PO (09:27)
[2024-06-16] MEDS: DITROPAN 5 MG PO ×2 (09:27→20:21)
[2024-06-16] MEDS: DESENEX/MITRAZOL/ZEASORB 1 APPLIC TOPICAL ×2 (09:35→20:20)
[2024-06-16 10:18] LABS: Glycohemoglobin (HgbA1c) 5.4 % (4.0-5.6)
[2024-06-16] MEDS: FERRLECIT 110 MG IV (15:14)
--- NOTE | 2024-06-16 15:20 | W.PN.HOSP.TC ---
Today's Communication/Plan
-
Final GI recs
Assessment / Plan
Assessment / Plan
NAD, eating breakfast
Scleral Anicteric
DMM
No JVD
CTABL
RRR, S1/S2
Soft, NT, ND, BS+
Warm, Dry
AAOx3
Calm
Starvation ketosis
Improving
Tolerating diet
Diarrhea which could be infectious versus inflammatory, resolved no diarrhea since prior to C-scope
CT abdomen pelvis completed
C. difficile, norovirus, stool culture negsative
Inflammatory markers improving
IV fluids
GI following
Continue IV steroids GI following
C-scope with some inflammation
Ulcerative colitis
On Remicade every 6/7-week dosing along with daily prednisone dosing 2 mg daily
GI ordered dose of Remicade on 06/15/2024 continue IV steroids
Hypoglycemia
Not on insulin however has had poor p.o. intake over the last 1.5 weeks with her absorption.
Began dextrose containing fluids
Hypothermia
Could be related to infectious
TSH 0.53
Will check a cortisol however on chronic steroid with prednisone therefore likely will skew data. Additionally, can explain hypoglycemia which is likely related to poor p.o. intake/failure to thrive along with evidence of hyponatremia to suspect
adrenal insufficiency as a cause and therefore we will continue prednisone will not hold it and will not check a cortisol at this time. Clinical status changes then we will proceed
As there is no other evidence of SIRS apart from this hypothermia we will hold off on obtaining blood cultures
Asymptomatic bacteriuria
Will not treat at this time
Anxiety/depression
Continue SSRI
GERD
Continue PPI
Hyperlipidemia
Continue statin
Anticipated Discharge: > 48 hours
Anticipated Discharge: 24 - 48 hours
Subjective/Interval History
-
Date of Service: June 16, 2024
Seen and examined. No new complaints. No acute overnight events
Objective Data
-
Labs:
Laboratory Results
06/16/24
06:56
WBC 7.6
Hgb 10.4 L
Hct 31.1 L
Plt Count 261
Sodium 139
Potassium 3.9
Chloride 111 H
Carbon Dioxide 22
BUN 12
Creatinine 0.5 L
Glucose 147 H
Calcium 8.2 L
Vital Signs:
Vital Signs
Temp Pulse Resp BP Pulse Ox
97.6 F 89 18 138/71 97
06/16/24 07:25 06/16/24 07:25 06/16/24 07:25 06/16/24 07:25 06/16/24 07:25
I&O
06/15/24 06/16/24 06/17/24
06:59 06:59 06:59
Intake Total 1520 / 2840 1560 / 1560 240 / 240
Balance 1520 / 2840 1560 / 1560 240 / 240
[2024-06-16 15:40] VITALS: BP 161/86
--- NOTE | 2024-06-16 15:57 | CM ---
CM reviewed chart, patient may benefit from PT/OT evaluations, TT to Hospitalist with request for orders. Per wound care, recommending air mattress at SNF, if home, VN. GI following patient. Patient seen bedside, reports she does not want to go to a
SNF, does not feel like she needs VN. CM will continue to follow for all discharge planning needs.
Plan; may benefit from PT/OT, patient does not want to go to SNF or VN
--- NOTE | 2024-06-16 17:31 | W.PN.GI.CBS2 ---
Today's Communication / Plan
-
Monitor stool output
Anticipate transition to oral pred tomorrow and d/c home
Assessment / Plan
-
Patient is a 79yo with hx CVA, GERD, HTN, hyperlipidemia, anxiety/depression, diverticulosis, osteoarthritis on chronic steroids, gout, anemia with iron deficiency, cellulitis, hyponatremia, prior c-diff infection, vitamin D deficiency, HH, and
long standing ulcerative colitis for many years. She had intermediate follow with Dr. Will then switch to Dr. Rousseau. 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
treatment. She has colonoscopy in March 2023 with syed 1 and remission with good levels and no antibodies. When seen last in office in March 2024 she was having 1 loose stool per week. Her fecal calpro improved with Remicade used down to
321 06/2023 then most recent testing up to 1150 in May. She now admits to increased non bloody diarrhea over last 6 week. She was recommended stool studies but states she was too weak to complete. She was also due for Infliximab level 06/15.
She admits to few lbs wt loss, decreased appetite and increased nausea.
Impression
-UC flare
diarrhea/weakness
-nausea with decreased appetite
-hx ulcerative colitis with elevated fecal sherin 1150 in May 2024
-chronic steroid use with hx UC and osteoarthritis
-hx anemia with iron deficiency
-CVA
-GERD/hx HH per prior EGD
-HTN
-hyperlipidemia
-anxiety/depression
-diverticulosis
-gout
-hx cellulitis
-prior c-diff infection
06/14/24 CT without IV or PO contrast:
Markedly limited based on lack of IV and oral contrast and some respiratory motion and artifact. No gross wall thickening of the GI tract and no surrounding stranding. Moderate size hiatal hernia soft tissue prominence around the coccygeal
segments cannot exclude pressure ulcer
Recommendations
- C/w IV steroid, anticipation changing to PO pred tomorrow
- S/p IFX infusion at 10mg/kg yesterday 06/15/24
- Diarrhea improved, continue to monitor output
- All stool studies thus far negative
- C/w IV iron
- Infliximab level 11 and neg for antibodies
- C/w low residue diet
- Encourage OOB ambulation
She will have close FU with Dr Rousseau outpatient basis. Will follow with you
Subjective
Subjective
Date of Service: June 16, 2024
She feels well. Denies abd pain, nausea/vomiting. Tolerating diet.
Objective
Data Reviewed
Laboratory Data:
Laboratory Results
06/16/24 06:56
06/16/24 06:56
Laboratory Results
Magnesium 1.3 mg/dl (1.6-2.3) L 06/14/24 06:27
Total Bilirubin 0.7 mg/dl (0.2-1.3) 06/13/24 09:04
AST 26 U/L (14-36) 06/13/24 09:04
ALT 11 U/L (0-35) 06/13/24 09:04
Alkaline Phosphatase 72 U/L (38-126) 06/13/24 09:04
Lipase 50 U/L (23-300) 06/13/24 09:04
Vital Signs and I&O:
Vital Signs
Temp Pulse Resp BP Pulse Ox
98.0 F 93 18 161/86 94
06/16/24 15:40 06/16/24 15:40 06/16/24 15:40 06/16/24 15:40 06/16/24 15:40
I&O
06/15/24 06/16/24 06/17/24
06:59 06:59 06:59
Intake Total 1520 / 2840 1560 / 1560 240 / 240
Balance 1520 / 2840 1560 / 1560 240 / 240
Physical Exam
Physical Exam
GEN: No acute distress, conversant, pleasant
HEENT: anicteric, extraocular movements intact, clear oropharynx without exudates
GI: soft, non-distended, not tender to palpation, normal active bowel sounds, no hepatosplenomegaly
EXT: warm, well perfused, no edema bilaterally
NEURO: AAOx3, non-focal
[2024-06-16] MEDS: LIPITOR 40 MG PO (17:46)
[2024-06-16] MEDS: LOVENOX 40 MG SC (17:46)
[2024-06-16] MEDS: PEPCID 20 MG PO (20:21)
[2024-06-16 22:56] VITALS: BP 155/78
[2024-06-17 07:14] LABS: Hematocrit 29.2 % (37.0-47.0); Hemoglobin 9.7 g/dL (12.0-16.0); Mean Corp Hgb Conc. 33.2 g/dL (33.0-37.0); Mean Corpuscular Hgb 27.9 pg (27.0-31.0); Mean Corpuscular Volume 83.9 fL (81.0-99.0); Mean Platelet Volume 9.8 fL (7.4-10.4); Platelet Count 275 10^3/uL (130-400); Red Blood Cell Count 3.48 10^6/uL (4.20-5.40); Red Cell Dist. Width 13.9 % (11.5-14.5); White Blood Cell Count 6.8 10^3/uL (4.8-10.8)
[2024-06-17 07:57] LABS: Blood Urea Nitrogen 21 mg/dl (7-17); Carbon Dioxide 23 mmol/L (22-30); Chloride 106 mmol/L (98-107); Estimated Creatinine Clearance 60 ml/min; Glucose 155 mg/dl (70-99); Sodium 139 mmol/L (135-145); eGFR > 60.00
[2024-06-17] MEDS: KCL 40 MEQ PO (08:59)
[2024-06-17] MEDS: SOLU-MEDROL PF 20 MG IV (09:00)
[2024-06-17] MEDS: ZINC 50 MG PO (09:00)
[2024-06-17] MEDS: KCL 270 MEQ IV (09:00)
[2024-06-17] MEDS: PROZAC 10 MG PO (09:00)
[2024-06-17] MEDS: DITROPAN 5 MG PO (09:00)
[2024-06-17] MEDS: OSCAL CAL 500 1000 MG PO (09:01)
[2024-06-17 09:02] VITALS: BP 112/83
[2024-06-17] MEDS: VISBIOME 1 CAP PO (09:06)
[2024-06-17] MEDS: VITAMIN C 1000 MG PO (09:07)
[2024-06-17] MEDS: DESENEX/MITRAZOL/ZEASORB 1 APPLIC TOPICAL (09:33)
[2024-06-17] MEDS: ZOFRAN 4 MG IV (09:38)
--- NOTE | 2024-06-17 10:57 | W.PN.GI.CBS2 ---
Today's Communication / Plan
-
Transition to oral pred
Please d/c on slow taper as above
She will FU with Dr Rousseau in our office.
Ok to d/c home today from GI perspective. GI will sign off please call for ?
Assessment / Plan
-
Patient is a 79yo with hx CVA, GERD, HTN, hyperlipidemia, anxiety/depression, diverticulosis, osteoarthritis on chronic steroids, gout, anemia with iron deficiency, cellulitis, hyponatremia, prior c-diff infection, vitamin D deficiency, HH, and
long standing ulcerative colitis for many years. 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 Rousseau. 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
treatment. She has colonoscopy in March 2023 with syed 1 and remission with good levels and no antibodies. When seen last in office in March 2024 she was having 1 loose stool per week. Her fecal calpro improved with Remicade used down to
321 06/2023 then most recent testing up to 1150 in May. She now admits to increased non bloody diarrhea over last 6 week. She was recommended stool studies but states she was too weak to complete. She was also due for Infliximab level 06/15.
She admits to few lbs wt loss, decreased appetite and increased nausea.
Impression
-UC flare
diarrhea/weakness
-nausea with decreased appetite
-hx ulcerative colitis with elevated fecal sherin 1150 in May 2024
-chronic steroid use with hx UC and osteoarthritis
-hx anemia with iron deficiency
-CVA
-GERD/hx HH per prior EGD
-HTN
-hyperlipidemia
-anxiety/depression
-diverticulosis
-gout
-hx cellulitis
-prior c-diff infection
06/14/24 CT without IV or PO contrast:
Markedly limited based on lack of IV and oral contrast and some respiratory motion and artifact. No gross wall thickening of the GI tract and no surrounding stranding. Moderate size hiatal hernia soft tissue prominence around the coccygeal
segments cannot exclude pressure ulcer
Recommendations
- Doing well without further diarrhea
- Transition to PO pred today with plan for very very slow taper
- S/p IFX infusion at 10mg/kg yesterday 06/15/24, she will resume home infusions. Infliximab level 11 and neg for antibodies
- All stool studies thus far negative
- C/w IV iron
- C/w low residue diet
- Encourage OOB ambulation
- Path from colonoscopy 06/15 pending and our office will call her with results.
She will have close FU with Dr Rousseau outpatient basis. Ok from GI perspective for hosp d/c please call for ?
Please send her rx for pred taper: Pred 10mg 6 tabs daily [id number], 5 tabs daily [id number], 4 tabs daily x10 days, 3 tabs daily x10 days, 2 tabs daily x10 days then 1 tab daily until seen by GI
Will sign off please call for ?
Subjective
Subjective
Date of Service: June 17, 2024
She denies abd pain, nausea/vomiting. Tolerating low residue diet. No further BM since 06/14
Objective
Data Reviewed
Laboratory Data:
Laboratory Results
06/17/24 06:44
06/17/24 06:44
Laboratory Results
Magnesium 1.3 mg/dl (1.6-2.3) L 06/14/24 06:27
Total Bilirubin 0.7 mg/dl (0.2-1.3) 06/13/24 09:04
AST 26 U/L (14-36) 06/13/24 09:04
ALT 11 U/L (0-35) 06/13/24 09:04
Alkaline Phosphatase 72 U/L (38-126) 06/13/24 09:04
Lipase 50 U/L (23-300) 06/13/24 09:04
Vital Signs and I&O:
Vital Signs
Temp Pulse Resp BP Pulse Ox
97.2 F 79 16 112/83 97
06/17/24 09:02 06/16/24 22:56 06/17/24 09:02 06/17/24 09:02 06/17/24 09:02
I&O
06/16/24 06/17/24 06/18/24
06:59 06:59 06:59
Intake Total 1560 / 1560 1200 / 1200
Balance 1560 / 1560 1200 / 1200
Physical Exam
Physical Exam
GEN: No acute distress, conversant, pleasant
HEENT: anicteric, extraocular movements intact, clear oropharynx without exudatesy
GI: soft, obese non-distended, not tender to palpation, normal active bowel sounds, no hepatosplenomegaly
EXT: warm, well perfused, trace edema bilaterally
NEURO: AAOx3, non-focal
[2024-06-17 12:16] LABS: HDL Cholesterol 24 mg/dl; LDL Cholesterol, Calculated 57 mg/dl; Total Cholesterol 102 mg/dl (50-199); Triglyceride 109 mg/dl (10-149); Very Low Density Lipoprotein 21 mg/dl (0-30)
[2024-06-17 12:39] VITALS: BP 160/88; PULSE 85
[2024-06-17 13:19] VITALS: BP 160/88; PULSE 85
[2024-06-17] MEDS: FERRLECIT 110 MG IV (14:58)
[2024-06-17 15:00] VITALS: BP 134/70
--- NOTE | 2024-06-17 15:16 | W.PN.HOSP.TC ---
Addendum entered and electronically signed by Zak Coyle MD 06/18/24 21:55:
stage 4 sacral pressure injury
Addendum entered and electronically signed by Zak Coyle MD 06/17/24 15:20:
Left renal cyst
Will require repeat outpatient CT abdomen within the next 6 months
Original Note:
Today's Communication/Plan
-
Is diarrhea has resolved
Appetite has improved
Cleared by GI for discharge
Tolerating diet well
Discharge home
More than 30 minutes spent in discharge including
Final examination of the patient
Summarizing hospital stay
Instructions for continuing care to all relevant caregivers
Preparation of discharge records, prescriptions, and referral forms
Total time spent (in minutes): 33mins
Assessment / Plan
Assessment / Plan
NAD, eating breakfast
Scleral Anicteric
DMM
No JVD
CTABL
RRR, S1/S2
Soft, NT, ND, BS+
Warm, Dry
AAOx3
Calm
Starvation ketosis
Resolved
Diarrhea which could be infectious versus inflammatory, resolved no diarrhea since prior to C-scope
CT abdomen pelvis completed
C. difficile, norovirus, stool culture negsative
Inflammatory markers improving
IV fluids
GI following
Continue IV steroids GI following
C-scope with some inflammation
Ulcerative colitis
On Remicade every 6/7-week dosing along with daily prednisone dosing 2 mg daily
GI ordered dose of Remicade on 06/15/2024 continue IV steroids
Hypoglycemia
Not on insulin however has had poor p.o. intake over the last 1.5 weeks with her absorption.
Began dextrose containing fluids
Hypothermia
Could be related to infectious
TSH 0.53
Will check a cortisol however on chronic steroid with prednisone therefore likely will skew data. Additionally, can explain hypoglycemia which is likely related to poor p.o. intake/failure to thrive along with evidence of hyponatremia to suspect
adrenal insufficiency as a cause and therefore we will continue prednisone will not hold it and will not check a cortisol at this time. Clinical status changes then we will proceed
As there is no other evidence of SIRS apart from this hypothermia we will hold off on obtaining blood cultures
Asymptomatic bacteriuria
Will not treat at this time
Anxiety/depression
Continue SSRI
GERD
Continue PPI
Hyperlipidemia
Continue statin
Anticipated Discharge: Today
Subjective/Interval History
-
Date of Service: June 17, 2024
Seen and examined. Complaints. No acute overnight events.
Objective Data
-
Labs:
Laboratory Results
06/17/24
06:44
WBC 6.8
Hgb 9.7 L
Hct 29.2 L
Plt Count 275
Sodium 139
Potassium 3.0 L
Chloride 106
Carbon Dioxide 23
BUN 21 H
Creatinine 0.6
Glucose 155 H
Calcium 8.0 L
Vital Signs:
Vital Signs
Temp Pulse Resp BP Pulse Ox
97.2 F 79 16 112/83 97
06/17/24 09:02 06/16/24 22:56 06/17/24 09:02 06/17/24 09:02 06/17/24 09:02
I&O
06/16/24 06/17/24 06/18/24
06:59 06:59 06:59
Intake Total 1560 / 1560 1200 / 1200
Balance 1560 / 1560 1200 / 1200
--- NOTE | 2024-06-17 15:20 | W.DCSUMMARY ---
Discharge Summary
Discharge Data
Date of Admission: 06/13/24
Date of Discharge: 06/17/24
-
Pending Results: Yes
Additional Pending Results:
C-scope Bx results
Hospital Course
79 female history of ulcerative colitis on Remicade q. 7 weeks, failure to thrive, stroke, hypertension, anxiety depression, GERD
Presented with diarrhea poor p.o. intake feeling weak and tired. Found to have a high CRP and ESR concerns for ulcerative colitis flare as last Remicade was 5 to 6 weeks prior to presentation. Stool cultures C. difficile were negative. Evaluated
by gastroenterology started on steroids and received 1 dose of Remicade on 06/15/2024. Was taken for colonoscopy findings as below. Will require outpatient follow-up to review biopsy results. Gastroenterology did recommend a tapering prednisone
dosing and outpatient gastroenterology will recommend resuming tomorrow versus continue on tapering dose. Stop taking prednisone 2mgg daily until advised by outpatient energy analyst.
Noted on CT there was a finding of 1.2 cm left renal cyst. Additional should be followed up with a repeat abdomen CT in 6 months
CTAP
IMPRESSION:
Moderate size hiatal hernia.
Markedly limited evaluation of intestinal tract without oral or intravenous contrast, without gross surrounding inflammatory changes. No intestinal obstruction or free air. On the basis of this study, an inflammatory process such as Inflammatory
Bowel Disease cannot be entirely excluded.
Soft tissue prominence with bubbles of air superficial to the coccygeal segments, cannot exclude pressure ulcer and/or small phlegmon/abscess. Clinical correlation recommended.
Predominantly simple appearing 1.2 cm left renal cysts with small posterior wall calcification. Suggest follow-up Abdomen CT in 6 months to confirm stability.
Cscope
Impression: - Hemorrhoids found on perianal exam.
- Loss of haustra, long standing ulcerative colitis
with cylindrical colon
- Moderately active (Ward Score 2) pancolitis
ulcerative colitis, worsened since the last
examination. Biopsied for UC and to rule out CMV.
- The examined portion of the ileum was normal.
Prednisone taper
60 mg daily x 10 days
50 mg daily x 10 days
40 mg daily x 10 days
30 mg daily x 10 days
20 mg daily x 10 days
10 mg daily x 10 days
Wound Care Instructions
Sacral ulcer-clean with Vashe wound cleanser, pack with strip of alginate, cover with dry gauze and silicone border foam, change daily and prn drainage.
Miconazole powder to yeasty red skin twice a day.
Zinc barrier ointment to groin/chelsea skin twice a day.
Air mattress
Turning schedule
Elevate heels off bed with pillow/s
Pressure redistributing chair cushion (i.e. Air, Roho).
Follow up at wound care center call for an appointment.
Discharge Plan
-
Patient Disposition: Home (Routine Discharge)
Discharge Diagnosis/Procedures: UC Flare
Condition: Good
Diet: As tolerated
Activity: As tolerated
Activity Restrictions/Additional Instructions:
Presented with diarrhea poor p.o. intake feeling weak and tired. Found to have a high CRP and ESR concerns for ulcerative colitis flare as last Remicade was 5 to 6 weeks prior to presentation. Stool cultures C. difficile were negative. Evaluated
by gastroenterology started on steroids and received 1 dose of Remicade on 06/15/2024. Was taken for colonoscopy findings as below. Will require outpatient follow-up to review biopsy results. Gastroenterology did recommend a tapering prednisone
dosing and outpatient gastroenterology will recommend resuming tomorrow versus continue on tapering dose. Stop taking prednisone 2mgg daily until advised by outpatient energy analyst.
Noted on CT there was a finding of 1.2 cm left renal cyst. Additional should be followed up with a repeat abdomen CT in 6 months
CTAP
IMPRESSION:
Moderate size hiatal hernia.
Markedly limited evaluation of intestinal tract without oral or intravenous contrast, without gross surrounding inflammatory changes. No intestinal obstruction or free air. On the basis of this study, an inflammatory process such as Inflammatory
Bowel Disease cannot be entirely excluded.
Soft tissue prominence with bubbles of air superficial to the coccygeal segments, cannot exclude pressure ulcer and/or small phlegmon/abscess. Clinical correlation recommended.
Predominantly simple appearing 1.2 cm left renal cysts with small posterior wall calcification. Suggest follow-up Abdomen CT in 6 months to confirm stability.
Cscope
Impression: - Hemorrhoids found on perianal exam.
- Loss of haustra, long standing ulcerative colitis
with cylindrical colon
- Moderately active (Ward Score 2) pancolitis
ulcerative colitis, worsened since the last
examination. Biopsied for UC and to rule out CMV.
- The examined portion of the ileum was normal.
Prednisone taper
60 mg daily x 10 days
50 mg daily x 10 days
40 mg daily x 10 days
30 mg daily x 10 days
20 mg daily x 10 days
10 mg daily x 10 days
Wound Care Instructions
Sacral ulcer-clean with Vashe wound cleanser, pack with strip of alginate, cover with dry gauze and silicone border foam, change daily and prn drainage.
Miconazole powder to yeasty red skin twice a day.
Zinc barrier ointment to groin/chelsea skin twice a day.
Air mattress
Turning schedule
Elevate heels off bed with pillow/s
Pressure redistributing chair cushion (i.e. Air, Roho).
Follow up at wound care center call for an appointment.
Referrals:
Pedro Rousseau MD [Active] - (2-4 wks for ulcerative colitis)
Hannah Decker DO [Family Provider] -
Prescriptions:
New
famotidine 20 mg Tablet
20 mg PO HS Qty: 60 0RF
prednisone 10 mg tablet
10 mg PO DIRECTED Qty: 210 0RF
Rx Instructions:
60 mg daily x 10 days
50 mg x 10 days
40 mg x 10 days
30 mg x 10 days
20 mg x 10 days
10 mg x 10 days
Continued
atorvastatin 40 MG tablet
40 mg PO QPM
fluoxetine 10 MG capsule
10 mg PO DAILY Qty: 30 3RF
potassium chloride [Klor-Con M20] 20 MEQ tablet,ER particles/crystals
20 meq PO DAILY
oxybutynin chloride 5 mg tablet
5 mg PO DAILY
infliximab [Remicade] 100 mg Recon Soln
100 mg IV Q7W
ascorbic acid (vitamin C) [Vitamin C] 1,000 mg Tablet
1,000 mg PO DAILY
acetaminophen [Tylenol] 325 mg Tablet
650 mg PO Q6HPRN PRN (Reason: mild pain)
oxybutynin chloride 10 mg Tablet Extended Release 24hr
10 mg PO QPM
zinc sulfate 50 mg zinc (220 mg) Tablet
50 mg PO DAILY
calcium carbonate 500 mg calcium (1,250 mg) Tablet
1,000 mg PO DAILY
Visbiome 112.5 billion cell Capsule
1 cap PO DAILY
magnesium oxide 200 mg magnesium Tablet
200 mg PO DAILY
Hair, Skin and Nails (biotin) 10,000 mcg Tablet,Chewable
10,000 mcg PO DAILY
Discontinued
prednisone 1 mg Tablet
2 mg PO DAILY
Discharge Orders:
Discharge Patient (As Directed); Ordered 06/17/24
Ordered By: Zak Coyle
Discharge Date and Time
Print Language: TAJIK
--- NOTE | 2024-06-17 16:11 | CM ---
Pt for dc today.
[facility].
Pt was educated on the benefits of Aide and PT/OT, and encouraged to ask for their services to be added if she gets home and realizes she needs the additional support.
Son will provide transport to home.
[2024-06-18 04:37] LABS: Calprotectin, Fecal 290 ug/g (<=49)
== END 2024-06-17 16:59 | disposition home health service (06) | DRG 385 ==
LOC: 4 WEST ACU 13:48
PROVIDERS: Internal Medicine; Physician Assistant; ADMITTING PHYSICIAN Hospitalist; EMERGENCY PHYSICIAN Emergency Medicine; FAMILY PHYSICIAN Internal Medicine; OTHER PHYSICIAN Internal Medicine Gastroenterology
PROC: 0DBG8ZX Excision of Left Large Intestine, Via Natural or Artificial Opening Endoscopic, Diagnostic (ICD-10-PCS; 2024-06-15)
PROC: 0DBF8ZX Excision of Right Large Intestine, Via Natural or Artificial Opening Endoscopic, Diagnostic (ICD-10-PCS; 2024-06-15)
DX: K51.00 Ulcerative (chronic) pancolitis without complications (principal); L89.154 Pressure ulcer of sacral region, stage 4; E87.1 Hypo-osmolality and hyponatremia; E88.89 Other specified metabolic disorders; R68.0 Hypothermia, not associated with low environmental temperature; F41.9 Anxiety disorder, unspecified; F32.A Depression, unspecified; K21.9 Gastro-esophageal reflux disease without esophagitis; E78.00 Pure hypercholesterolemia, unspecified; R62.7 Adult failure to thrive; D50.9 Iron deficiency anemia, unspecified; I10 Essential (primary) hypertension; Z86.73 Personal history of transient ischemic attack (TIA), and cerebral infarction without residual deficits; K44.9 Diaphragmatic hernia without obstruction or gangrene; K57.30 Diverticulosis of large intestine without perforation or abscess without bleeding; M10.9 Gout, unspecified; M19.90 Unspecified osteoarthritis, unspecified site; N28.1 Cyst of kidney, acquired; Z79.52 Long term (current) use of systemic steroids; Z79.620 Long term (current) use of immunosuppressive biologic; R82.71 Bacteriuria
CPT/HCPCS: 88305; 71045; 74176; 80048; 80053; 80061; 81003; 81015; 82728; 82962; 83036; 83540; 83690; 83735; 83993; 84443; 85025; 85027; 85652; 86140; 87045; 87046; 87077; 87086; 87186; 87324; 87328; 87329; 87427; 87449; 87798; 88342; 93005; 96361; 96374; 97162; 97166; 99285; J1745; J2916

== ENCOUNTER 2024-08-02 09:27 | Inpatient (IN) | payer OTHER, SELFPAY ==
[2024-08-02] VITALS (65 sets, daily range): BP systolic 77–125; BP diastolic 32–94; BMI 23.4
[2024-08-02 06:51] LABS: Glucose - Point of Care 172 mg/dl (70-99)
--- NOTE | 2024-08-02 07:05 | ED.GENMED ---
History of Present Illness
General
Chief Complaint: Change in Mental Status
Time Seen by Provider: 08/02/24 06:48
History of Present Illness
History of Present Illness:
79-year-old female with history of ulcerative colitis on Skyrizi, chronic sacral decubitus ulceration, hypertension, hyperlipidemia, anemia presenting for generally feeling unwell. Patient arrives from home. Patient brought in by medics. Patient
is cared for at home by her son who notes in the past several months, has been generally feeling unwell, however seem to worsen the past few days. Per medics, noted to be hypotensive, hypoglycemic, hypoxic, tachycardic. Patient limited historian
upon arrival. Patient was given D10, IV fluids and route with reported improvement of mental status. Son not immediately available for information. On review of EMR, recent admission in June for diarrhea. No additional history obtained at this
time.
Past History
Past History
ED Past Medical History: CVA (September 2016), HTN, Psychiatric (Anxiety, depression), Other (Inflammatory bowel disease, Colitis, Cellulitis,) and Other (Episode of hyponatremia, sodium of 117 September 2016.)
ED Past Surgical History: Appendectomy and Other (Partial large bowel RESECTION)
Social History
Tobacco: Non-smoker
Alcohol: None
Drug: None
Personal:
Living: with family (lives with son)
Employment: Retired
Family History
Family History: Other (Noncontributory)
Phy Exam
Physical Exam
Physical Exam:
General: Pale
HEENT: protecting airway
Neck: appears supple
CV: Tachycardic, regular rhythm
Resp: No accessory muscle use, no increased work of breathing, lungs clear to auscultation bilaterally
Abd: Soft and non-distended, no tenderness to palpation
Extremities: No deformities, no swelling
Neuro: alert, no focal neurologic deficit
: deferred
Rectal: deferred
Psych: Normal affect
Skin: Tunneled sacral decubitus ulceration. No active drainage
Sepsis
Sepsis Screening
Sepsis Assessment: Septic Shock
Sepsis Screening: Hypotension
Sepsis Screen
Sepsis Screen: Septic Shock
Date: 08/03/24
Time: 08:31
Course
Orders/Labs/Results
Orders:
Orders
08/02/24
Electrocardiogram (*1) Stat
Reason for Study: Chest Pain
Comment: DONE
08/02/24 06:52
Acetaminophen [Tylenol/Feverall] 650 mg RECTAL NOW STA
CR Chest Portable - 1 View Urgent
Comment:
Reason For Exam: sepsis
Reason Study Needs to be Portable: Patient Unstable
08/02/24 06:53
0.9% Sodium Chloride 1000 ml [Nss] 1,000 ml IV BOLUS
08/02/24 07:04
COVID-19 Antigen Urgent
Source: Nasal Swab
Complete Blood Count/With Diff Urgent
Comprehensive Metabolic Panel Urgent
Lactic Acid Q4H
Comment: CANCEL 2nd LACTIC ACID IF 1st LACTIC ACID IS LESS THAN 2
PTT Urgent
Prothrombin Time Urgent
Serum Osmolality Urgent
Comment: ADD ON
Blood Culture Q30M
CROW Source: Blood/Venous
Specimen Description:
Influenza A+B Rapid Molecular Urgent
CROW Source: Nasal Swab
Specimen Description:
08/02/24 07:07
Osmolality, Random Urine Routine
Date Specimen was Collected: 08/02/24
Time Specimen was Collected: 07:06
Comment: ADD ON
Urinalysis Reflex To Culture Urgent
Date Specimen was Collected: 08/02/24
Time Specimen was Collected: 07:06
Urine Microscopic Reflex Cult Urgent
Urine Sodium Routine
Date Specimen was Collected: 08/02/24
Time Specimen was Collected: 07:06
Comment: ADD ON
08/02/24 07:10
Blood Culture Q30M
CROW Source: Blood/Venous
Specimen Description:
08/02/24 07:16
Venous Blood Gas Urgent
%Oxygen/Room Air: 21
08/02/24 07:29
0.9% Sodium Chloride 1000 ml [Nss] 1,000 ml IV BOLUS
08/02/24 07:41
Code Status As Directed
Resuscitation Status: Full Code
08/02/24 07:57
Fentanyl Citrate/Pf [Sublimaze] 50 mcg IV NOW STA
08/02/24 08:00
Cefepime HCl [Maxipime] 2,000 mg IV NOW STA
08/02/24 08:01
Vancomycin [Vancocin] 1,500 mg 0.9% Sodium Chloride 500 ml [Nss] 500 ml IV NOW
08/02/24 08:54
Admit/Transfer Patient As Directed
Co-Sign Provider:
Level of Care: Inpatient admission
Assign to:: ICU
Physician / Group: Davon
Diagnosis: Septic shock, resp failure
Reason for Hospitalization: IV antibiotics, respiratory support, ICU care
Expected length of stay greater than two midnights?: Yes
ELOS- Estimated Length of Stay in days: 5
I certify the patient meets the requirements for IP care: Yes
PRN Pain Medication Management As Directed
May give lesser potent ordered pain med per pt: Yes
preference::
Protocol:: Medication orders for pain may be administered in a
manner that supports deferring to patient preference
when the pt is:
- Requesting an ordered lesser potent pain medication.
Least to most potent pain medications are defined
as: acetaminophen < NSAID < tramadol < opioids
(morphine, oxycodone, hydromorphone).
- Requesting a lesser dose of the same medication IF
ORDERED.
- Requesting a less intrusive route of administration
if both routes are prescribed by the provider (PO <
IV).
08/02/24 09:00
NORepinephrine 4 MG/250 ML [Levophed] 4 mg in 250 ml IV PER PROTOCOL
Initial dose in mcg/min, then titrate:: 2
Titrate to keep:: MAP > 65 mmHg
Titrate by mcg/min:: 1-2 mcg/min
Frequency of titrations (minutes):: 5
Maximum dose in ICU in mcg/min:: 30
Maximum dose in IMU in mcg/min:: 8
Maximum dose in IVU in mcg/min:: 4
Begin to taper infusion when:: Remained at goal for 4hrs
Taper by mcg/min:: 1-2 mcg/min
Frequency of taper (minutes) if patient maintains goal:: 30
Taper to off?: Yes
If infusion off & no longer maintaining goal:: Contact Provider
08/02/24 09:06
Hydrocortisone Sod Succinate [Solu-Cortef] 100 mg IV NOW STA
08/02/24 Lunch
Clear Liquid
At Your Request: Limited Participation
08/02/24 11:34
Acetaminophen [Tylenol] 650 mg PO Q6HPRN PRN
Lactated Ringers [Lr] 1,000 ml IV 80 mls/hr
08/02/24 11:34
INFECTIOUS DISEASE CONSULT Routine
Consulting Provider: Bel Hagen
Was physician already notified: Yes
Train Attendant Consult Routine
Consulting Provider: Florentino Schultz
Was physician already notified: Yes
Activity As Directed
Activity Level: With Assistance
DX Deep Vein Thrombosis Video Routine
08/02/24 16:00
Hydrocortisone Sod Succinate [Solu-Cortef] 50 mg IV Q8H
08/02/24 16:43
Lactic Acid Q4H
Comment: CANCEL 2nd LACTIC ACID IF 1st LACTIC ACID IS LESS THAN 2
08/02/24 20:00
Cefepime HCl [Maxipime] 2,000 mg IV Q12H
Heparin 5,000 units SC Q12
Abnormal Lab Results
08/02/24 08/02/24 08/02/24
06:49 07:04 07:07
RBC 3.34 L 10^6/uL
(4.20-5.40)
Hgb 9.6 L g/dL
(12.0-16.0)
Hct 29.9 L %
(37.0-47.0)
MCHC 32.1 L g/dL
(33.0-37.0)
RDW 16.5 H %
(11.5-14.5)
Abs Immat Gran (auto) 0.5 H 10^3/uL
(0-0.05)
Absolute Monos (auto) 0.7 H 10^3/uL
(0.1-0.6)
Immature Gran % 6.5 H %
(0-0.5)
PT 15.9 H Sec
(11.4-14.6)
VBG pH
VBG pCO2
Sodium 132 L mmol/L
(135-145)
BUN 32 H mg/dl
(7-17)
Glucose 103 H mg/dl
(70-99)
Lactic Acid 2.9 H mmol/L
(0.7-2.0)
Calcium 7.7 L mg/dl
(8.4-10.2)
Total Protein 4.6 L g/dl
(6.3-8.2)
Albumin 2.4 L g/dl
(3.5-5.0)
Urine Ketones 2+ A
(Negative)
Urine Bacteria (Reflex) Few A
(Negative)
Urine Sodium 94 H mmol/L
(30-90)
Urine Albumin (Reflex) 1+ A
(Neg - Trace)
POC Glucose 172 H mg/dl
(70-99)
08/02/24
07:16
RBC
Hgb
Hct
MCHC
RDW
Abs Immat Gran (auto)
Absolute Monos (auto)
Immature Gran %
PT
VBG pH 7.26 L
(7.32-7.43)
VBG pCO2 59 H mmHg
(35-48)
Sodium
BUN
Glucose
Lactic Acid
Calcium
Total Protein
Albumin
Urine Ketones
Urine Bacteria (Reflex)
Urine Sodium
Urine Albumin (Reflex)
POC Glucose
08/02/24 07:04
08/02/24 07:04
Vital Signs
Initial and Last Documented VS:
Initial Vital Signs
Pulse Resp
110 17
08/02/24 06:51 08/02/24 06:51
Last Documented Vital Signs
Temp Pulse Resp BP Pulse Ox
97.6 F 73 16 118/62 86
08/03/24 08:13 08/03/24 06:00 08/03/24 06:00 08/03/24 06:00 08/03/24 06:00
MDM/Problems Addressed
MDM/Problems Addressed:
79-year-old female with history of ulcerative colitis, hypertension, hyperlipidemia presenting for generalized weakness and feeling unwell. Vital signs on arrival significant for tachycardia, hypotension, and fever.
On exam patient is generally unwell in appearance, pale. Limited historian. Vital signs on arrival concerning for sepsis, febrile rectally. Sacral decubitus ulceration is present, tunneled, however on review of EMR, appears to be chronic.
Unclear source of infection. Suspect concomitant dehydration. Dry mucous membranes. Starting patient on IV fluids. Tylenol administered for fever. Will obtain lactic acid, blood cultures, chest x-ray, urinalysis. Did call and discussed with
son, notes his recent admission, has not rebounded, overall decreased appetite/weak/lethargic. She started Skyrizi a month ago and has had constipation since then. Did confirm with patient, full code.
07:45 - Patient with hypoxia, not tolerating nonrebreather. Do not feel patient will tolerate BiPAP. VBG does show a mild respiratory acidosis. Will try high flow.
08:00 -urine without significant sign of infection. Chest x-ray does show right-sided prominence, possible opacity versus edema versus scarring. Patient denying any cough. Patient sacral wound is a potential source. Lactic acid elevated at 2.9.
Given persistent hypotension, concern for severe sepsis versus septic shock. Starting broad-spectrum antibiotics with plan for admission
*EKG
Interpreted by ED Provider?: Yes
EKG Intrepretation Date: 08/02/24
EKG Intrepretation Time: 08:17
Interpretation: normal
Comparison EKG: no changes (06/13/24)
Heart Rate: 101
Rate: tachycardiac
Rhythm: sinus
[place]: normal axis
Interval: normal interval
QRS Pattern: normal QRS
Ischemia: no ischemia
*Critical Care Note
Total Time (30-74mins, 75-104mins- exclusive of procedures): 37
comment:
The high probability of a clinically significant, sudden or life threatening deterioration, septic shock, required my full and direct attention, intervention and personal management. The aggregate critical care time was 37 minutes. This time is in
addition to time spent performing reported procedures but includes the following:
[x] Data Review and interpretation
[x] Patient assessment and monitoring of vital signs
[x] Documentation
[x] Medication orders and management
ED Attending Note
-
Portions of this chart may have been created with voice recognition software.� Occasional wrong word or��sound alike� substitutions may have occurred due to the inherent limitations of voice recognition software.
Discharge Plan
Departure
Patient Disposition: Admit
Date of Disposition: 08/02/24
Time of Disposition: 08:46
Presentation/result/management discussed w/ accepting MD/DO: Hospitalist
Patient with high blood pressure during this ER visit?: No
Condition: Critical
Discharge Problem:
Septic shock, Sacral decubitus ulcer
Interventions
Interventions:
*Risk Screen - Suicide Last Done: 08/02/24 11:51
*General Assessment Last Done: 08/02/24 06:57
*Neglect/Abuse Screening Last Done: 08/02/24 06:57
*ED COVID-19 Vaccine History Last Done: 08/02/24 06:57
*Nursing Disposition Last Done: 08/02/24 12:05
ED- Pulmonary Assessment Last Done: 08/02/24 08:08
ED-Psychological Assessment Last Done: 08/02/24 12:05
ED- Neurological Assessment Last Done: 08/02/24 08:36
ED- Cardiac Assessment Last Done: 08/02/24 12:05
Discharge Date and Time
Discharge Date/Time: 08/02/24 12:06
[2024-08-02 07:29] LABS: Venous Blood Gas B.E. -1.2 mmol/L (-4 to +4); Venous Blood Gas HCO3 26.5 mmol/L (22-27); Venous Blood Gas O2 Sat % 78.3 %; Venous Blood Gas pCO2 59 mmHg (35-48); Venous Blood Gas pH 7.26 (7.32-7.43); Venous Blood Gas pO2 49 mmHg (30-50)
[2024-08-02 07:40] LABS: COVID-19 Antigen Negative (Negative)
[2024-08-02] MEDS: TYLENOL/FEVERALL 650 MG RECTAL (07:41)
[2024-08-02] MEDS: NSS 1000 IV ×2 (07:41→08:04)
[2024-08-02 07:42] LABS: INR 1.24; PT 15.9 Sec (11.4-14.6)
[2024-08-02 07:43] LABS: APTT 32.7 Sec (23.4-35.0); Hematocrit 29.9 % (37.0-47.0); Hemoglobin 9.6 g/dL (12.0-16.0); Mean Corp Hgb Conc. 32.1 g/dL (33.0-37.0); Mean Corpuscular Hgb 28.7 pg (27.0-31.0); Mean Corpuscular Volume 89.5 fL (81.0-99.0); Mean Platelet Volume 10.2 fL (7.4-10.4); Platelet Count 153 10^3/uL (130-400); Red Blood Cell Count 3.34 10^6/uL (4.20-5.40); Red Cell Dist. Width 16.5 % (11.5-14.5); White Blood Cell Count 8.3 10^3/uL (4.8-10.8)
[2024-08-02 07:46] LABS: Urine Albumin 1+ (Neg - Trace); Urine Bilirubin Negative (Negative); Urine Character Slightly Cloudy (Clear); Urine Color Yellow; Urine Glucose Negative (Negative); Urine Ketone 2+ (Negative); Urine Leukocyte Negative (Negative); Urine Nitrite Negative (Negative); Urine Occult Blood Negative (Negative); Urine Specific Gravity 1.015 (<1.030); Urine Urobilinogen Negative (Neg - 1+)
[2024-08-02 07:47] LABS: ALT (SGPT) 11 U/L (0-35); AST (SGOT) 22 U/L (14-36); Albumin 2.4 g/dl (3.5-5.0); Alkaline Phosphatase 39 U/L (38-126); Blood Urea Nitrogen 32 mg/dl (7-17); Calcium 7.7 mg/dl (8.4-10.2); Carbon Dioxide 24 mmol/L (22-30); Chloride 102 mmol/L (98-107); Estimated Creatinine Clearance 44 ml/min; Glucose 103 mg/dl (70-99); Potassium 3.7 mmol/L (3.5-5.1); Sodium 132 mmol/L (135-145); Total Protein 4.6 g/dl (6.3-8.2); eGFR > 60.00
[2024-08-02 07:51] LABS: Lactic Acid 2.9 mmol/L (0.7-2.0)
[2024-08-02] MEDS: SUBLIMAZE 50 MCG IV (08:01)
[2024-08-02 08:09] LABS: Urine Squamous Cell 0-2 /LPF (Few)
[2024-08-02 08:10] LABS: Urine Bacteria Few (Negative); Urine Hyaline Cast 0-2 /LPF (0-2); Urine Red Blood Cell 0-2 /HPF (0-2); Urine White Cell 0-2 /HPF (0-5)
[2024-08-02 08:54] LABS: % Basophils 0.5 % (0-2); % Eosinophils 0.5 % (0-6); % Immature Granulocytes 6.5 % (0-0.5); % Lymphocytes 27.2 % (20.5-51.1); % Monocytes 8.4 % (1.7-9.3); % Neutrophils 56.9 % (42.2-75.2); Absolute Immature Granulocytes 0.5 10^3/uL (0-0.05); Absolute Lymphocytes 2.3 10^3/uL (1.2-3.4); Absolute Monocytes 0.7 10^3/uL (0.1-0.6); Absolute Neutrophils 4.7 10^3/uL (1.4-6.5); Nucleated Red Blood Cells % 0.2 %
--- NOTE | 2024-08-02 09:02 | HPS.HSE ---
Family Physician
-
Family Physician: Hannah Decker DO
Chief Complaint
-
Weakness
History of Present Illness
79-year-old female with history of ulcerative colitis, presenting to the hospital with generalized weakness. Also complaining of chronic sacral pain from her wound. She has a very poor and limited historian.
Denies cough or shortness of breath. Denies chest pain. Denies nausea vomiting or diarrhea. Reportedly is constipated. Had a bowel movement that was normal in the emergency room.
Presented with hypoxia, pulse ox 80%. Transitioned to high flow nasal cannula oxygen in the emergency room.
Medical History
Past Medical History
Past Medical History: Reports Other
Additional Past Medical History:
Ulcerative colitis
History of stroke�2016
Essential hypertension
Hyperlipidemia
GERD
Vitamin D deficiency
Diverticulosis
Gout
Depression
Chronic anemia
Chronic sacral decubital ulcer
Pulmonary nodules
Past Surgical History: Reports and Other
Additional Past Surgical History:
Left cataract surgery
I&D of left thigh abscess
Right carpal tunnel repair
Social History
Tobacco: Non-smoker
Alcohol: None
Drug: None
Living: With Family
Employment: Not Employed
Family History
Family History: Not pertinent
Allergies / Home Medications
Allergies reflects when Allergies were last updated in [email or web address].
Home Medications with original date entered in [email or web address]
Allergy/Medication List:
Allergies
Allergy/AdvReac Type Severity Reaction Status Date / Time
No Known Allergies Allergy Verified 03/24/23 09:45
Home Medications
atorvastatin 40 mg tablet 40 mg PO QPM High cholesterol 11/28/18
fluoxetine 10 mg capsule 10 mg PO DAILY #30 caps 07/22/19
potassium chloride 20 mEq tablet,extended release(part/cryst) (Klor-Con M) 20 meq PO DAILY Electrolyte Repletion 02/09/21
infliximab 100 mg intravenous solution (Remicade) 100 mg IV Q7W Ulcerative colitis 03/24/23
oxybutynin chloride 5 mg tablet 5 mg PO DAILY Urinary Issue 03/24/23
Lactobac no.2-Bifidobac no.1-S. thermo 112.5 billion cell capsule (Visbiome) 1 cap PO DAILY 06/13/24
acetaminophen 325 mg tablet (Tylenol) 650 mg PO Q6HPRN PRN mild pain 06/13/24
ascorbic acid (vitamin C) 1,000 mg tablet (Vitamin C) 1,000 mg PO DAILY 06/13/24
biotin 10,000 mcg chewable tablet (Hair, Skin and Nails (biotin)) 10,000 mcg PO DAILY 06/13/24
calcium carbonate 1,000 mg PO DAILY 06/13/24
magnesium oxide 200 mg PO DAILY 06/13/24
oxybutynin chloride 10 mg tablet,extended release 24 hr 10 mg PO QPM 06/13/24
zinc sulfate 50 mg zinc (220 mg) tablet 50 mg PO DAILY 06/13/24
famotidine 20 mg tablet 20 mg PO HS #60 tabs 06/17/24
prednisone 10 mg tablet 10 mg PO DIRECTED #210 tabs 06/17/24
Review of Systems
-
History Source: Patient and Family
A 12 point ROS was completed and negative except as noted: Yes
Physical Exam
Vital Signs
Vital Signs
Temp Pulse Resp BP Pulse Ox
101.6 F H 98 20 95/60 95
08/02/24 06:57 08/02/24 08:00 08/02/24 08:00 08/02/24 08:00 08/02/24 08:08
Physical Exam
General: Well Developed, Well Nourished, No Apparent Distress and Comfortable
HEENT: NormoCephalic, Anicteric and Moist mucous membranes
Respiratory: Clear
Cardiac: S1/S2 and Regular Rhythm
Breast: Deferred by me
GI: Soft, Non Tender and Non Distended
Genito-urinary: Deferred by me
Musculoskeletal: No Clubbing, No Cyanosis and No Edema
Skin: Warm and Dry
Neuro: Awake, Alert and Oriented
Hematologic/Lymphatic: No Lymphadenopathy
Psych: Calm
Laboratory Results
-
08/02/24 07:04
08/02/24 07:04
Laboratory Results
PT 15.9 Sec (11.4-14.6) H 08/02/24 07:04
INR 1.24 08/02/24 07:04
APTT 32.7 Sec (23.4-35.0) 08/02/24 07:04
Lactic Acid 2.9 mmol/L (0.7-2.0) H 08/02/24 07:04
Total Bilirubin 1.0 mg/dl (0.2-1.3) 08/02/24 07:04
AST 22 U/L (14-36) 08/02/24 07:04
ALT 11 U/L (0-35) 08/02/24 07:04
Alkaline Phosphatase 39 U/L (38-126) 08/02/24 07:04
Impression/Plan
-
Septic shock -etiology unclear. Differential diagnosis includes bacteremia from mucosal translocation from GI source versus sacral decubital wound versus other. Pneumonia seems less likely clinically. Urinalysis looks unremarkable. Blood
cultures have been sent. Continue broad-spectrum antibiotics.
Admit to ICU. Continue IV fluid support. She has already received 2 L of IV fluids in the emergency room. Start Levophed for pressor support. Consult funeral professional. Consult infectious disease.
Given profound hypotension and exposure to corticosteroids prior to admission we will assume she has adrenal sufficiency and give stress dose steroids. Discussed with nursing.
Lactic acidosis due to sepsis.
Acute hypoxic respiratory failure -possibly due to septic shock. 1 view chest x-ray in the emergency room was read as low lung volumes, widespread bilateral pulmonary markings at least in part groundglass. Differential diagnosis of pulmonary edema
or pneumonitis. Currently on high flow nasal cannula oxygen. Does not use oxygen at home. She denies shortness of breath, cough, or chest pain.
She is at risk for ARDS from sepsis. Monitor closely in ICU. Does not examine in heart failure.
Hyponatremia -sodium 132. Differential diagnosis of hypovolemic versus ADH excess. Will check urine studies, serum osmolarity.
Chronic sacral decubital wound -no signs of superficial skin infection. Does tunnel fairly deep. 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
Ulcerative colitis -on Skyrizi. Appears to have started a prednisone taper in mid June.
Chronic anemia -normocytic. Hemoglobin appears to be at baseline. 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
History of stroke
Essential hypertension -hold medications for hypotension.
Hyperlipidemia
Full code
Updated patient's son Jostin on the phone. All questions answered.
[2024-08-02] MEDS: LEVOPHED 250 IV (09:12)
[2024-08-02] MEDS: SOLU-CORTEF 100 MG IV (09:16)
[2024-08-02] MEDS: MAXIPIME 2000 MG IV ×2 (09:17→20:52)
[2024-08-02] MEDS: VANCOCIN 530 MG IV (09:24)
[2024-08-02] MEDS: LR 1000 IV (12:02)
[2024-08-02] MEDS: MORPHINE SULFATE 2 MG IV ×2 (14:11→20:52)
--- NOTE | 2024-08-02 15:54 | CON.INTV ---
Consultation
Consultation Request
Date/Time Consultation Requested: 08/02/2024
Date/Time Consultation Performed: 08/02/2024
Reason for Consultation: Septic shock
Medical History
-
Chief Complaint: Weakness
History of Present Illness:
79-year-old female past medical history of UC on Skyrizi, stage IV chronic sacral decubitus ulcer, history of stroke, osteoarthritis, hyperlipidemia, presents to the emergency department for generalized weakness. Patient is cared for by her son who
notes in the past several months she has been feeling generally unwell. However in asking the patient she states that the acuity is of the last couple days. She does get Skyrizi infusions for ulcerative colitis, she is unsure when her last
infusion is but reports she is due for the next August 13. Per medics she was noted to be hypotensive, hypoglycemic, hypoxic, tachycardic. In the emergency department blood cultures were drawn, and patient received, vancomycin, cefepime IV fluid
bolus hydrocortisone initiated on Levophed drip. Patient was also initiated on high flow nasal cannula 50 L. Reportedly she takes no oxygen at home. Chest x-ray in the emergency department demonstrated widespread bilateral pulmonary markings,
partially groundglass. Differential including pulmonary edema or pneumonitis. Patient reports she is not short of breath, reports no cough, no abdominal pain, no chest pain, does admit to feeling weak. Labs are significant for slight hyponatremia
132 and lactic acid 2.9. She was admitted to the ICU for suspected septic shock and started on pressors and high flow nasal cannula oxygen.
Past Medical History
Past Medical History: HTN, Hypercholesterolemia and Other (Ulcerative colitis, stage IV chronic sacral decubitus ulcer, OA, hyperlipidemia)
Allergies / Home Medications
Allergies
Allergy/AdvReac Type Severity Reaction Status Date / Time
No Known Allergies Allergy Verified 03/24/23 09:45
Home Medications
�Medication �Instructions �Recorded �Confirmed �Last Taken �Type
atorvastatin 40 mg tablet 40 mg PO QPM High cholesterol 11/28/18 08/02/24 2 Days Ago History
~06/11/24
fluoxetine 10 mg capsule 10 mg PO DAILY #30 caps 07/22/19 08/02/24 2 Days Ago Rx
~06/11/24
potassium chloride 20 mEq 20 meq PO DAILY Electrolyte 02/09/21 08/02/24 2 Days Ago History
tablet,extended Repletion ~06/11/24
release(part/cryst) (Klor-Con M)
infliximab 100 mg intravenous 100 mg IV Q7W Ulcerative colitis 03/24/23 08/02/24 Unknown History
solution (Remicade)
oxybutynin chloride 5 mg tablet 5 mg PO DAILY Urinary Issue 03/24/23 08/02/24 2 Days Ago History
~06/11/24
Lactobac no.2-Bifidobac no.1-S. 1 cap PO DAILY 06/13/24 08/02/24 Unknown History
thermo 112.5 billion cell capsule
(Visbiome)
acetaminophen 325 mg tablet 650 mg PO Q6HPRN PRN mild pain 06/13/24 08/02/24 Unknown History
(Tylenol)
ascorbic acid (vitamin C) 1,000 mg 1,000 mg PO DAILY 06/13/24 08/02/24 Unknown History
tablet (Vitamin C)
biotin 10,000 mcg chewable tablet 10,000 mcg PO DAILY 06/13/24 08/02/24 Unknown History
(Hair, Skin and Nails (biotin))
calcium carbonate 1,000 mg PO DAILY 06/13/24 08/02/24 Unknown History
magnesium oxide 200 mg PO DAILY 06/13/24 08/02/24 Unknown History
oxybutynin chloride 10 mg 10 mg PO QPM 06/13/24 08/02/24 Unknown History
tablet,extended release 24 hr
zinc sulfate 50 mg zinc (220 mg) 50 mg PO DAILY 06/13/24 08/02/24 Unknown History
tablet
famotidine 20 mg tablet 20 mg PO HS #60 tabs 06/17/24 08/02/24 Unknown Rx
prednisone 10 mg tablet 10 mg PO DIRECTED #210 tabs 06/17/24 08/02/24 Unknown Rx
Review of Systems
-
History Source: Patient
Constitutional: No Symptoms and Fever (Denies)
Respiratory: No Symptoms (Patient reports no respiratory symptoms, no shortness of breath, no cough, no productive phlegm, no wheezing.)
Cardiac: No Symptoms
Abdomen/GI: No Symptoms
Neuro: Weakness
Vitals / Labs / Diagnostic Testing
Vital Signs
Temp Pulse Resp BP Pulse Ox
101.6 F H 96 17 91/64 89
08/02/24 06:57 08/02/24 12:00 08/02/24 12:00 08/02/24 12:00 08/02/24 12:00
Lab Data
08/02/24 07:04
08/02/24 07:04
Laboratory Results
08/02/24
07:04
PT 15.9 H
INR 1.24
APTT 32.7
Microbiology
08/02/24 07:04 Nasal Swab Influenza Types A & B (PRANAV) - Final
Negative for Influenza A & B, NAAT
Negative results must be combined with clinical observations
and patient history.
Nucleic Acid Amplification test (NAAT)performed on the
[employer] platform.
Diagnostic Testing:
Physical Exam
-
HEENT: Other (High flow nasal cannula)
Cardiovascular: S1/S2 and Regular Rhythm
Respiratory: Wheeze
GI: Soft
Neurology: Awake, Alert, Oriented and AO x 3
Assessment
-
Assessment:
79-year-old female past medical history of ulcerative colitis on Skiz, stage IV chronic sacral decubitus ulcer presents for generalized weakness of approximately 3 days duration. Of note patient was hypotensive, tachycardic, requiring pressors
and high flow nasal cannula. Patient was admitted to the ICU for pressor support secondary to septic shock.
Plan:
#Septic shock
Patient immune suppressed at baseline as received Skyrizi infusion, also on home steroids per med list
Patient meets SIRS criteria on admission with hypotension, febrile, tachycardia and tachypnea, WBC count within normal limits, lactic acid elevated
Source currently unknown, suspected source is sacral decubitus ulcer
Chest x-ray demonstrates nonspecific bilateral infiltrates No focal consolidation
Urinalysis does not appear infected, no urinary symptoms
Blood cultures drawn x 2 prior to be initiated on antibiotics
Patient was initiated on empiric vancomycin and cefepime
Currently requiring pressors to maintain MAP greater than 65.
Continue pressors as needed to maintain MAP greater than 65. Down titrate as tolerated
Continue IV antibiotics, while waiting for blood cultures
If patient does not improve, will consider CT imaging tomorrow
Daily CBC, daily CMP, trend lactic acid
#Acute hypoxic respiratory failure
Chest x-ray demonstrates nonspecific bilateral infiltrates, possible pulmonary edema, possible pneumonitis
Currently patient is requiring high flow 50 L via nasal cannula
Reportedly patient does not use any oxygen at home
Wheezing present on exam bilaterally
Continue IV steroids
Continue high flow nasal cannula, down titrate as tolerated. Attempt to wean to mid flow if possible
#Hyponatremia
Sodium 132
Urine studies ordered
Will follow-up on urine studies, could be hypovolemia, could be secondary to SIADH
CODE STATUS: Full code
DVT prophylaxis: Subcu heparin
Diet: Clear liquids
--- NOTE | 2024-08-02 16:01 | PHA.VAN.IN ---
Assessment
- Assessment
Renal Function: Appears similar to baseline
Maximum Temperature: 101.6
AUC Dosing Plan
- Dosing Variables
Dosing Weight (kg): 58
Dosing CrCl (ml/min): 44
Vd coefficient (L/kg): 0.7
- Empiric Dosing
Initial / Loading Dose: 1500 mg
Maintenance Regimen: 750 mg IV 24h
Estimated AUC (mcg*h/mL): 461
Estimated Peak (mcg*h/mL): 29.5
Estimated Trough (mcg/ml): 11.5
Estimated Half Life (H): 16.9
- Monitoring
No levels ordered at this time: Consider in next few days
Pharmacokinetics Vancomycin I
- -
Patient Age: 79
Patient Sex: Female
Vancomycin Day #: 1
Indication: Bacteremia
Requesting Provider: Dr. Mays
Pertinent Antimicrobial Allergies:
NKDA
Height / Weight:
Height 5 ft 2 in
Actual Weight 58 kg
Pertinent Past Medical History: Chronic sacral decubital wound
- Vital Signs / Lab Results
Temp Pulse Resp BP Pulse Ox
101.6 F H 84 20 94/52 99
08/02/24 06:57 08/02/24 15:45 08/02/24 15:45 08/02/24 15:45 08/02/24 15:45
Lab Results - Hematology
08/02/24
07:04
WBC 8.3
Lab Results - Chemistry
08/02/24
07:04
BUN 32 H
Creatinine 0.8
Estimated Creat Clear 44
Albumin 2.4 L
08/02/24
07:04
Lactic Acid 2.9 H
Lab Results - Urine
08/02/24
07:07
Urine Nitrite (Reflex) Negative
Leukocyte Esterase Rfl Negative
Urine WBC (Reflex) 0-2
Ur Squamous Epith Cells 0-2
Urine Bacteria (Reflex) Few A
Microbiology Results
08/02/24 07:04 Influenza Types A & B (PRANAV) - Final
Nasal Swab Negative for Influenza A & B, NAAT
Negative results must be combined with clinical observations
and patient history.
Nucleic Acid Amplification test (NAAT)performed on the
[employer] platform.
--- NOTE | 2024-08-02 16:11 | CON.ID ---
Addendum entered and electronically signed by Bel Hagen MD 08/03/24 09:14:
I personally performed a history and physical exam of the patient and discussed management with the resident. I reviewed the resident's note and agree with the documented findings and plan of care HPI/CC with the following additions/corrections:
I personally performed a history and physical exam of the patient and discussed management with the resident. I reviewed the resident's note and agree with the documented findings and plan of care HPI/CC with the following additions/corrections:
HPI:
Ms Muse is an 79 year old female with history of UC on infliximab, suspected adrenal insufficiency most recently prednisone 10 mg after a steroid tape, stroke, also a chronic sacral wound for the last several years. She was brought in by her son
who noted malaise for several months which progressed over the last several weeks. She is reported to be a limited historian - endorsed nausea and malaise but on my exam denied: fevers, chills, headache, sinus tenderness, cough, sputum production,
vomiting, diarrhea, constipation, dysuria, urgency, other wounds beyond the sacral one, rashes, joint pains.
Since arrival here Tmax in [facility] was 101.6 rectally, bp unstable requiring pressors norepi at 4 mcg/min, wbc 8.3, hgb 9.6, plt 153, no L shift, Na 132, cr 0.8, lactic acid 2.9, normal LFTs, UA no pyuria, covid ag negative, CXR: Widespread
bilateral pulmonary markings at least in part groundglass. Some of several differential diagnostic possibilities include pulmonary edema or pneumonitis, blood cultures x2 no growth to date, flu negative, vancomycin and cefepime is ordered, ID is
consulted for assistance with management.
Physical Exam
General: No Apparent Distress and Comfortable
Respiratory: Clear to auscultation bilaterally, no rales wheezes or ronchi
Cardiac: S1/S2 and Regular Rhythm
GI: Soft, Non Tender and Non Distended
Genito-urinary: no suprapubic tenderness
Skin: Warm and Dry; sacral wound with possible probe to bone, no surrounding erythema, no odor
Neuro: Awake, Alert
A&P:
Septic Shock
Hypoxemic resp failure
Chronic Sacral decubitus ulcer
- wound seems to be most likely source of infection
- blood cultures x2
- superficial wound cultures generally not reliable
- last a1c 5.4 last month, no need to repeat
- if stabilizing can consider MRI of the sacrum
- might also consider assessment for PE and echo
- unclear to me why she is having delayed wound healing if she is ambulatory, will review her clinical history further with patient's family tomorrow
- continue vancomycin, cefepime, I added metronidazole
- patient is critically ill on pressors and high flow O2
AW
Original Note:
Consultation
-
Date/Time Consultation Requested: 08/02/2024 11:34
Date/Time Consultation Performed: 08/02/2024 3:20
Requesting Provider: Regino Mays DO
Performing Provider: Bel Hagen MD
Reason for Consultation: Chronic sacral wound
Chief Complaint / Past History
Chief Complaint
Sacral wound pain
History of Present Illness
Ms. Muse is an 79-year-old female with PMH of chronic ulcerative rectosigmoiditis on [facility], chronic sacral decubitus ulcer, who presented to the ED today via EMS with weakness and confusion. On arrival, patient was complaining of pain in her
sacral wound area. She reports that her wound was taking care of by her son at home for the past several months but has been generally feeling unwell which worsened in the past few days. EMS reported hypotension, hypoglycemia, tachycardia and
hypoxia at the point of contact at home. D10 IVF was administered and routes to the hospital with improvement of patient's mental status. Patient is a poor historian. Chart review shows patient was admitted here on 06/13/2024 with diarrhea,
hypoglycemia in the low 30s, hypothermia with mild anemia.
On arrival today, patient was febrile at 101.6, pulse 99, respiratory 28, BP 83/39 saturating at 95% on room air. Labs with significant for Hb 9.6, platelet 153, sodium 132, BUN 32, creatinine 0.8, glucose 103, lactic acid 2.9. Urinalysis was
negative bacteriuria. VBG with mild respiratory acidosis. Patient was unable to tolerate nonrebreather mask and was placed on high flow oxygen. Despite multiple fluid resuscitation patient remained hypotensive and was transferred to ICU. ID was
consulted for antibiotics management.
Patient seen and examined at bedside, denies headaches, chills, nausea, vomiting, chest pain, shortness of breath, cough. However, complaining of sacral pain rated 7/10.
Past History
Past Medical History: CAD (CVA September 2016), GERD, HTN, Hypercholesterolemia and Psychiatric (Anxiety, depression)
Additional Past Medical History:
FTT, DDD, Osteoarthritis, sacral Ulcer, Inflammatory bowel disease, Ulcerative Colitis, Cellulitis
Past Surgical History: Appendectomy, Bowel Resection (Partial colon resection), Gynecological ( x 2) and Orthopedic (Carpal tunnel surgery)
Additional Past Surgical History:
Cataract surgery
Allergy History:
No Known Allergies Allergy (Verified 03/24/23 09:45)
Medications Reviewed: Yes
Social History
Tobacco: Non-Smoker
Alcohol: None
Drug: None
Living: With Family
Family History
Family History: Not Pertinent
Review of Systems
Review of Systems
General: Negative Fever or Chills
Cardiovascular: Negative Chest Pain
Respiratory: Negative Dyspnea or Cough
Gasteroenterology: Negative Nausea, Vomiting or Diarrhea
Skin / Hair / Nails: Other (Tunneled deep sacral wound)
Neurological: Negative Headache
All systems: All other systems were reviewed and were negative
Vital Signs
Temp Pulse Resp BP Pulse Ox
101.6 F H 84 20 94/52 99
08/02/24 06:57 08/02/24 15:45 08/02/24 15:45 08/02/24 15:45 08/02/24 16:03
Physical Exam
Physical Exam
Constitutional: No Acute Distress and Chronically Ill
Oral: Poor Dentition
Cardiovascular: Regular Rate and S1/S2; Negative Murmur or Rub
Pulmonary: Clear and Symmetric; Negative Wheezes, Rales or Rhonchi
Gastrointestinal: Soft, Non Tender, Non Distended and Normal Bowel Sounds
Genito-Urinary: Bowen
Skin: Warm, Dry and Other (Sacral wound measuring 3 x 1 x 2 cm, tunneled); Negative Rash or Jaundice
Wound: None (Sacral ulcer, clean, measuring 3 x 1 x 2 cm with granulation tissue) and Other (anterior chest crusted vesicular rash with large vesciles; posterior neck - superficial ulcers with serous drainage - no crusting.)
Neurological: Awake, Alert and AO x 3
Psychological: Calm
Lab / Diagnostic Study Results
08/02/24 07:04
08/02/24 07:04
Abs Immat Gran (auto) 0.5 10^3/uL (0-0.05) H 08/02/24 07:04
Absolute Neuts (auto) 4.7 10^3/uL (1.4-6.5) 08/02/24 07:04
Absolute Lymphs (auto) 2.3 10^3/uL (1.2-3.4) 08/02/24 07:04
Absolute Monos (auto) 0.7 10^3/uL (0.1-0.6) H 08/02/24 07:04
Absolute Basos (auto) 0.0 10^3/uL (0-0.2) 08/02/24 07:04
Immature Gran % 6.5 % (0-0.5) H 08/02/24 07:04
Neutrophils % 56.9 % (42.2-75.2) 08/02/24 07:04
Lymphocytes % 27.2 % (20.5-51.1) 08/02/24 07:04
Monocytes % 8.4 % (1.7-9.3) 08/02/24 07:04
Eosinophils % 0.5 % (0-6) 08/02/24 07:04
Basophils % 0.5 % (0-2) 08/02/24 07:04
PT 15.9 Sec (11.4-14.6) H 08/02/24 07:04
INR 1.24 08/02/24 07:04
Lactic Acid 2.9 mmol/L (0.7-2.0) H 08/02/24 07:04
Ur Squamous Epith Cells 0-2 /LPF (Few) 08/02/24 07:07
Microbiology Results
Micro:
08/02/24 07:04 Influenza Types A & B (PRANAV) - Final
Nasal Swab Negative for Influenza A & B, NAAT
Negative results must be combined with clinical observations
and patient history.
Nucleic Acid Amplification test (NAAT)performed on the
[employer] platform.
08/02/24 07:04 Blood Culture - Pending
Blood/Venous
08/02/24 07:10 Blood Culture - Pending
Blood/Venous
Assessment / Plan
79-year-old female with PMH of chronic ulcerative rectosigmoiditis on [facility], chronic sacral decubitus ulcer, who presented to the ED today via EMS with weakness, confusion, hypotension and hypoglycemia.
Per patient's son, infliximab was discontinued and forced infusion of risankizumab was about a month ago after which she started feeling very unwell.
Assessment/plan:
#Septic shock secondary to sacral wound
#Suspected pneumonitis
#Chronic decubitus sacral wound
#Fever
#Suspected sacral osteomyelitis
#Hyponatremia
- Suspect polymicrobial including staph, strep, Pseudomonas, Bacteroides, anaerobic strep and Enterobacter.
- History of Proteus, MSSA, diphtheroids culture positive sacral wound in 03/24/2023.
- CXR 08/02 with bilateral widespread groundglass opacity suspicious for pneumonitis vs pulmonary edema.
- Blood cultures x 2 in progress.
- Continue vancomycin, cefepime and metronidazole.
- Fluid resuscitation and pressors as needed.
- Pain control.
- Wound care.
- Consider sacral biopsy and culture when able.
- Follow fever curve
Care Review
Plan reviewed with: Nurse and Physician
--- NOTE | 2024-08-02 16:22 | W.PN.UPDATE ---
Update Note
Progress Note Update
I personally performed a history and physical exam of the patient and discussed management with the resident. I reviewed the resident's note and agree with the documented findings and plan of care HPI/CC with the following additions/corrections:
HPI:
Ms Muse is an 79 year old female with history of UC on infliximab, suspected adrenal insufficiency most recently prednisone 10 mg after a steroid tape, stroke, also a chronic sacral wound for the last several years. She was brought in by her son
who noted malaise for several months which progressed over the last several weeks. She is reported to be a limited historian - endorsed nausea and malaise but on my exam denied: fevers, chills, headache, sinus tenderness, cough, sputum production,
vomiting, diarrhea, constipation, dysuria, urgency, other wounds beyond the sacral one, rashes, joint pains.
Since arrival here [facility] in [facility] was 101.6 rectally, bp unstable requiring pressors norepi at 4 mcg/min, wbc 8.3, hgb 9.6, plt 153, no L shift, Na 132, cr 0.8, lactic acid 2.9, normal LFTs, UA no pyuria, covid ag negative, CXR: Widespread
bilateral pulmonary markings at least in part groundglass. Some of several differential diagnostic possibilities include pulmonary edema or pneumonitis, blood cultures x2 no growth to date, flu negative, vancomycin and cefepime is ordered, ID is
consulted for assistance with management.
Physical Exam
General: No Apparent Distress and Comfortable
Respiratory: Clear to auscultation bilaterally, no rales wheezes or ronchi
Cardiac: S1/S2 and Regular Rhythm
GI: Soft, Non Tender and Non Distended
Genito-urinary: no suprapubic tenderness
Skin: Warm and Dry; sacral wound with possible probe to bone, no surrounding erythema, no odor
Neuro: Awake, Alert
A&P:
Septic Shock
Hypoxemic resp failure
Chronic Sacral decubitus ulcer
- wound seems to be most likely source of infection
- blood cultures x2
- superficial wound cultures generally not reliable
- last a1c 5.4 last month, no need to repeat
- if stabilizing can consider MRI of the sacrum
- might also consider assessment for PE and echo
- unclear to me why she is having delayed wound healing if she is ambulatory, will review her clinical history further with patient's family tomorrow
- continue vancomycin, cefepime, I added metronidazole
- patient is critically ill on pressors and high flow O2
AW
--- NOTE | 2024-08-02 16:46 | DOWNTIME ---
There was a [employer] Downtime on 08/02/2024 from 1230 to 08/02/2024 at 1550. Downtime documentation of patient's care, including medication administrations, has been reconciled in the electronic record per guidelines. Refer to the
patient's paper chart under the miscellaneous tab to see printed paper medication records and downtime forms.
[2024-08-02] MEDS: SOLU-CORTEF 50 MG IV (16:58)
[2024-08-02 17:15] LABS: Lactic Acid 0.7 mmol/L (0.7-2.0)
[2024-08-02 17:33] LABS: Osmolality Urine 589 mOsm/kg (300-900)
--- NOTE | 2024-08-02 17:40 | PTCARENOTE ---
Pt admitted to ICU bed 3363 at 1135. Received on Levophed at 4 mcg/min, now weaned off. O2 via HFNC 50L 100% on arrival, now on 12L mid flow. Crackles noted at left base posteriorly. Denies cough or SOB. Wound culture sent for sacral decub.
WO c/s ordered for wound care instructions. No void since arrival to unit. Bladder scan 285ml at 1700. All other assessments unchanged.
[2024-08-02 17:41] LABS: Osmolality Serum 277 mOsm/kg (275-300)
[2024-08-02 18:12] LABS: Urine Sodium 94 mmol/L (30-90)
--- NOTE | 2024-08-02 19:00 | PTCARENOTE ---
vitals pulled over from prev shift- can only verify accuracy of vitals starting at 1900 for shift.
--- NOTE | 2024-08-02 20:15 | PTCARENOTE ---
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 pt repositioned. pt's only IV site is not patent- difficult stick, IV team paged. Sat 95% on 12LMFNC. POC discussed. awaiting IV for scheduled meds and pain med.
[2024-08-02] MEDS: FLAGYL 500 MG PO (20:52)
[2024-08-02] MEDS: HEPARIN 5000 UNITS SC (20:52)
[2024-08-02] MEDS: STERILE WATER FOR INJECTION 10 ML IV (20:52)
[2024-08-03] VITALS (28 sets, daily range): BP systolic 92–138; BP diastolic 44–121; PULSE 80–89; O2SAT 91–92; BMI 23.2
[2024-08-03] MEDS: SOLU-CORTEF 50 MG IV ×4 (00:19→20:14)
[2024-08-03] MEDS: LR 1000 IV (00:20)
--- NOTE | 2024-08-03 00:30 | PTCARENOTE ---
no changes in assessment. pt inc mod amt yellow urine. skin care, repositioned. call mendez with pt.
[2024-08-03] MEDS: MORPHINE SULFATE 2 MG IV ×5 (00:50→20:17)
--- NOTE | 2024-08-03 04:00 | PTCARENOTE ---
no changes in pt assessment.
[2024-08-03 04:16] LABS: Hematocrit 27.9 % (37.0-47.0); Hemoglobin 9.1 g/dL (12.0-16.0); Mean Corp Hgb Conc. 32.6 g/dL (33.0-37.0); Mean Corpuscular Hgb 28.5 pg (27.0-31.0); Mean Corpuscular Volume 87.5 fL (81.0-99.0); Mean Platelet Volume 9.8 fL (7.4-10.4); Platelet Count 126 10^3/uL (130-400); Red Blood Cell Count 3.19 10^6/uL (4.20-5.40); Red Cell Dist. Width 15.7 % (11.5-14.5); White Blood Cell Count 6.6 10^3/uL (4.8-10.8)
[2024-08-03 04:42] LABS: ALT (SGPT) 11 U/L (0-35); AST (SGOT) 28 U/L (14-36); Albumin 2.3 g/dl (3.5-5.0); Alkaline Phosphatase 46 U/L (38-126); Blood Urea Nitrogen 22 mg/dl (7-17); Calcium 7.2 mg/dl (8.4-10.2); Carbon Dioxide 24 mmol/L (22-30); Chloride 107 mmol/L (98-107); Estimated Creatinine Clearance 59 ml/min; Glucose 102 mg/dl (70-99); Potassium 4.1 mmol/L (3.5-5.1); Sodium 133 mmol/L (135-145); Total Bilirubin 0.7 mg/dl (0.2-1.3); Total Protein 4.4 g/dl (6.3-8.2); eGFR > 60.00
[2024-08-03] MEDS: VANCOCIN 150 IV (04:54)
--- NOTE | 2024-08-03 05:46 | PTCARENOTE ---
pt maxed on MFNC, sats consistently dropping to mid 80s, RT paged to bedside for HFNC.
--- NOTE | 2024-08-03 08:22 | VNURNOTE ---
Chart reviewed. Patient is current with [facility] nursing. Will continue to follow hospital course and DC plans.
[2024-08-03] MEDS: STERILE WATER FOR INJECTION 10 ML IV ×2 (08:24→20:14)
[2024-08-03] MEDS: MAXIPIME 2000 MG IV ×2 (08:24→20:14)
[2024-08-03] MEDS: HEPARIN 5000 UNITS SC (08:24)
[2024-08-03] MEDS: FLAGYL 500 MG PO ×2 (08:24→20:14)
--- NOTE | 2024-08-03 08:26 | W.PN.ID1 ---
Addendum entered and electronically signed by Bel Hagen MD 08/03/24 15:26:
I saw and evaluated the patient. I reviewed the resident�s note and agree with findings and plan as documented in the resident�s note with the following additions/corrections:
Subjective:
single elevated rectal T to 101.6
pressors were weaned off last night
now on midflow NC at 15 L
no events reported overnight
labs reviewed
CXR today: Heterogeneous bilateral pulmonary opacities. These are similar to the prior study. Findings likely represent pneumonia; my read interstitial - more likely pulmonary edema
Physical Exam
General: No Apparent Distress and Comfortable
Respiratory: Clear to auscultation bilaterally, no rales wheezes or ronchi
Cardiac: S1/S2 and Regular Rhythm
GI: Soft, Non Tender and Non Distended
Genito-urinary: no suprapubic tenderness
Skin: Warm and Dry; sacral wound with possible probe to bone, no surrounding erythema, no odor
Neuro: Awake, Alert
A&P:
Septic Shock
Hypoxemic resp failure
UC on Immunosuppression
Chronic Sacral decubitus ulcer
Adrenal Insufficiency
- note that
- wound seems to be most likely source of infection
- blood cultures x2
- superficial wound cultures generally not reliable for underlying cause of osteomyelitis and expected to be polymicrobial with colonizing adonis which will shift through time, in progress
- check pro BNP, historically it has been consistent with CHF, it has been 4 year since her last TTE would update now
- obtain sputum if able to produce one
- consider assessment for PE such as CTA
- unclear to me why she is having delayed wound healing if she is ambulatory; may relate to chronic steroids and immunosuppression or lack of adequate time offloading, she does have a recent PT assessment 06/17 in which he was able to ambulate 20 ft
with rolling walker and supervision and was able to roll side to side in the bed without assistance
- given her functional status she could potentially be a candidate for wound vac vs flap of the chronic sacral wound if she continues to improve from her hypoxemia; when bone is well covered and unlikely to be secondarily infected again would be the
time to consider pursuing further assessment for possible osteomyelitis (MRI, bone biopsy etc). Would plan on either outpatient plastics assessment or inpatient assessment near the end of her hospital stay
- continue vancomycin, cefepime, metronidazole
- patient is clinically improving
AW
Original Note:
Date of Service
Date of Service: August 03, 2024
Patient seen and examined. Overnight, patient maxed out on mid flow nasal cannula saturating at mid 80s and was switched to HFNC. Currently on 15L O2 NC sat 95%. She has been off Levo and IVF with BP 103/53. She reports today that she is feeling
better. Sacral pain is more tolerable. Denies fever, chills, abd pain, chest pain, palpitations, nausea and vomiting.
Today's Communication
Continue vancomycin, cefepime and metronidazole.
Consider plastic surgery consult.
Follow cultures.
Pain control.
Wound care.
Assessment / Plan
79-year-old female with PMH of chronic ulcerative rectosigmoiditis on [facility], chronic sacral decubitus ulcer, who presented to the ED today via EMS with weakness, confusion, hypotension and hypoglycemia.
Per patient's son, infliximab was discontinued and forced infusion of risankizumab was about a month ago after which she started feeling very unwell.
Assessment/plan:
#Septic shock secondary to chronic decubitus sacral ulceration
#Possible pneumonia vs pneumonitis vs pulmonary edema
#Chronic decubitus sacral wound
#Fever
#Hypoxia
#Suspected sacral osteomyelitis
#Hyponatremia
- Improving clinically, off Levophed, supplemental oxygen requirement decreased, BP stable off IVF, remains afebrile with normal white count.
- Wound most likely source of infection vs PNA. No evidence of bacteremia at this time.
- Fever resolved, WBC count 6.6.
- MRSA screening in progress, COVID-negative.
- Blood cultures 08/02 x 2 in progress. No growth in 24 hours.
- Sacral wound culture and Gram stain 08/02 in progress.
- Suspect polymicrobial including staph, strep, Pseudomonas, Bacteroides, anaerobic strep and Enterobacter.
- Noticed this wound has been going on for a couple of years from chart review, last A1c 5.4 a month ago. Consider MRI of sacrum when stable to evaluate for osteomyelitis.
- Consider plastic surgery consult to weigh in on wound VAC vs flap vs other better wound care strategy.
- CXR 08/03 with heterogeneous bilateral pulmonary opacities representing possible pneumonia.
- CT chest PE.
- Continue vancomycin, cefepime and metronidazole.
- Pain control.
- Wound care.
Chief Complaint
-: Pneumonia and Other (Sacral wound pain, septic shock)
Subjective / Review of Systems
Review of Systems: No Fever, No Chills, No Headache, No Chest Pain, No Abdominal Pain, No Nausea, No Vomiting and Other (Sacral wound pain)
Vital Signs / Physical Exam
Vital Signs
Vital Signs
Temp Pulse Resp BP Pulse Ox
97.6 F 73 16 118/62 86
08/03/24 08:13 08/03/24 06:00 08/03/24 06:00 08/03/24 06:00 08/03/24 06:00
Physical Exam
Constitutional: No Acute Distress and Comfortable
Cardiovascular: Regular Rate
Pulmonary: Symmetric and Non Labored
Gastrointestinal: Soft, Non Tender and Non Distended
Genito-Urinary: Bowen
Extremities: Edema (1+ b/l LE )
Skin: Dry and Rash (rash nearly resolved)
Wound: Other (Sacral wound measuring 3 x 1 x 2 cm, tunneled)
Neurological: Awake and AO x 3
Psychological: Calm
Objective Data
Lab Data
Lab Results
08/03/24 04:05
08/03/24 04:05
PT 15.9 Sec (11.4-14.6) H 08/02/24 07:04
INR 1.24 08/02/24 07:04
APTT 32.7 Sec (23.4-35.0) 08/02/24 07:04
Estimated Creat Clear 59 ml/min 08/03/24 04:05
Lactic Acid 0.7 mmol/L (0.7-2.0) 08/02/24 16:43
Total Bilirubin 0.7 mg/dl (0.2-1.3) 08/03/24 04:05
AST 28 U/L (14-36) 08/03/24 04:05
ALT 11 U/L (0-35) 08/03/24 04:05
Alkaline Phosphatase 46 U/L (38-126) 08/03/24 04:05
Most recent labs reviewed.
Microbiology: Report Reviewed
Micro Results:
08/02/24 07:04 Blood Culture - Preliminary
Blood/Venous No Growth in 24 hours- Final report to follow
08/02/24 07:10 Blood Culture - Preliminary
Blood/Venous No Growth in 24 hours- Final report to follow
08/03/24 04:05 MRSA Screen - Pending
Nose
08/02/24 16:58 Wound Culture - Pending
Sacral Gram Stain - Pending
08/02/24 07:04 Influenza Types A & B (PRANAV) - Final
Nasal Swab Negative for Influenza A & B, NAAT
Negative results must be combined with clinical observations
and patient history.
Nucleic Acid Amplification test (NAAT)performed on the
[email or web address] platform.
Chest X-Ray: Image Reviewed and Report Reviewed
Care Review
Plan reviewed with: Physician
--- NOTE | 2024-08-03 08:40 | W.PN.HOSP.TC ---
Today's Communication/Plan
-
Continue antibiotics
Wean oxygen as able
Start diet
Nutrition consult
PT/OT
Assessment / Plan
Assessment / Plan
Gen-AAOx3, NAD
HEENT-NC, AT, anicteric, clear oral mm
Neck-supple
CV-reg, no M, +S1/S2
Lungs-clear B/L
Abd-soft, NT, ND
Ext-no edema
Musculoskeletal-no cyanosis, clubbing
Skin-warm and dry
Neuro-grossly non-focal
Psych-calm, cooperative
Septic shock -etiology unclear. Differential diagnosis includes pneumonia versus bacteremia from mucosal translocation from GI source versus sacral decubital wound versus other. Urinalysis looks unremarkable. Blood cultures negative so far.
Continue broad-spectrum antibiotics.
Lactic acidosis resolved. Off vasopressors. Hemodynamically improved with addition of corticosteroids.
Acute hypoxic respiratory failure -possibly due to septic shock. 1 view chest x-ray in the emergency room was read as low lung volumes, widespread bilateral pulmonary markings at least in part groundglass. Differential diagnosis of pulmonary edema
or pneumonitis versus pneumonia. Oxygenation improving, now on 15 L mid flow oxygen. Does not use oxygen at home. She denies shortness of breath, cough, or chest pain. Does have a mild nonproductive cough.
Chest x-ray today shows heterogeneous bilateral pulmonary opacities. Similar to the x-ray from yesterday. Pneumonia remains in the differential diagnosis.
Chronic secondary adrenal insufficiency -has been on chronic steroids over the years, primarily for ulcerative colitis. Recently started on a high-dose taper mid June. Was on 10 mg daily prior to admission. Currently on stress dose steroids.
She is scheduled to follow-up with endocrinology in August. Discussed with patient's son.
She had an ACTH stimulation test March 2023 with a 60-minute cortisol level of 6 after ACTH dose.
Hyponatremia -sodium 133. Urine osmolality 589, urine sodium 94, suspect SIADH. Mild fluid restriction.
Chronic sacral decubital wound -no signs of superficial skin infection. Does tunnel fairly deep. 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 I doubt imaging with MRI would liner roll changer.
Confusing picture as she claims that she gets up once per hour at home to walk. Usually these sacral decubital wounds happen in bedbound patients. In addition, I suspect she has underlying malnutrition contributing to the sacral wound. Her
appetite is poor at home and she seems to only eat 2 meals a day. Consult nutrition. Add Ensure to diet.
Ulcerative colitis -on Skyrizi. Appears to have started a prednisone taper in mid June.
Chronic anemia -normocytic. Hemoglobin appears to be at baseline. 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
Acute thrombocytopenia -126k. Etiology unclear, possibly due to sepsis. Monitor for now.
History of stroke
Essential hypertension -hold medications for hypotension.
Hyperlipidemia -atorvastatin.
Full code
PT/OT
Anticipated Discharge: > 48 hours
Subjective/Interval History
-
Date of Service: August 03, 2024
Patient seen and examined. Complaining of sacral pain.
Objective Data
-
Labs:
Laboratory Results
08/03/24
04:05
WBC 6.6
Hgb 9.1 L
Hct 27.9 L
Plt Count 126 L
Sodium 133 L
Potassium 4.1
Chloride 107
Carbon Dioxide 24
BUN 22 H
Creatinine 0.6
Glucose 102 H
Calcium 7.2 L
Total Bilirubin 0.7
AST 28
ALT 11
Alkaline Phosphatase 46
Vital Signs:
Vital Signs
Temp Pulse Resp BP Pulse Ox
97.6 F 73 16 118/62 92
08/03/24 08:13 08/03/24 06:00 08/03/24 06:00 08/03/24 06:00 08/03/24 08:35
I&O
05/28/25 05/29/25 05/30/25
06:59 06:59 06:59
Intake Total 1500 / 1580 160 / 160
Output Total 150 / 150
Balance 1350 / 1430 160 / 160
Review of Systems
-
History Source: Patient
All other systems: Reviewed and negative
--- NOTE | 2024-08-03 09:00 | PTCARENOTE ---
Received pt @ change of shift. Pt. drowsy, awakens to verbal stim; ox3; c/o severe pain in sacrum, medicated w prn- see MAY. SR on monitor. +1 anasarca. SpO2 93%, O2 switched from simple mask to 15LMF, tolerating. Auscultated crackles @ R base.
+BS, abd soft/nt. Cont BM. Inc bladder, purewick in place draining yellow urine. Lisa hygiene provided. Sacral dressing intact. #20 R wrist patent, dressing c/d/i. Pt. c/o some difficulty swallowing pills during meds pass; aware and further
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 Pt. instructed on how to report care concerns and call vanessa w in reach.
--- NOTE | 2024-08-03 09:10 | PHA.VAN.FU ---
Vancomycin Assessment / Plan
- Assessment
Renal Function: Stable
WBC's are: Trending Down
Concomitant Antimicrobials: Cefepime 2 gram IV q12h, Flagyl 500 mg PO BID
- Dosing Plan
Continue: Vancomycin 750 mg IV q24h
- Monitoring Plan
No level(s) ordered at this time: Consider in the next few days
- Follow Up
Pharmacy will continue to follow.
Vancomycin Follow UP
- -
Patient Age: 79
Patient Sex: Female
Vancomycin Day #: 2
Indication: Bacteremia
Requesting Provider: Dr. Mays
Pertinent Antimicrobial Allergies:
NKDA
Height / Weight:
Height 5 ft 2 in
Actual Weight 57.5 kg
Pertinent Past Medical History: Chronic sacral decubital wound
- Vital Signs / Lab Results
Temp Pulse Resp BP Pulse Ox
97.6 F 80 12 112/71 92
08/03/24 08:13 08/03/24 08:30 08/03/24 08:30 08/03/24 08:00 08/03/24 08:35
Lab Results - Hematology
08/02/24 08/03/24
07:04 04:05
WBC 8.3 6.6
Lab Results - Chemistry
08/02/24 08/03/24
07:04 04:05
BUN 32 H 22 H
Creatinine 0.8 0.6
Estimated Creat Clear 44 59
Albumin 2.4 L 2.3 L
08/02/24 08/02/24
07:04 16:43
Lactic Acid 2.9 H 0.7
Microbiology Results
08/02/24 07:04 Blood Culture - Preliminary
Blood/Venous No Growth in 24 hours- Final report to follow
08/02/24 07:10 Blood Culture - Preliminary
Blood/Venous No Growth in 24 hours- Final report to follow
08/02/24 07:04 Influenza Types A & B (PRANAV) - Final
Nasal Swab Negative for Influenza A & B, NAAT
Negative results must be combined with clinical observations
and patient history.
Nucleic Acid Amplification test (NAAT)performed on the
[email or web address] platform.
--- NOTE | 2024-08-03 09:31 | W.PN.INTV ---
Today's Communication / Plan
Recommendations
Potential downgrade to IMU
Continue mid flow O2, down titrate as tolerated
Continue IV antibiotics per ID
Consider sacral MRI per ID
Change steroid frequency from every 6 to every 8 hours
Discontinue lactated ringer
Echocardiogram/lower extremity Doppler to evaluate for potential clot/PE
CTA if echo or Doppler are abnormal, CT chest without contrast if normal
Initiate diet per speech
Reinitiate p.o. home medications, atorvastatin, fluoxetine, famotidine
Assessment
-
Assessment:
79-year-old female past medical history of ulcerative colitis on Skyrizi, stage IV chronic sacral decubitus ulcer presents for generalized weakness of approximately 3 days duration. Of note patient was hypotensive, tachycardic, requiring pressors
and high flow nasal cannula. Patient was admitted to the ICU for pressor support secondary to septic shock.
Plan:
#Septic shock
Resolved, have been titrated off pressors, currently maintaining normotension
Potential downgrade to IMU if stable and if testing negative for PE
Patient immune suppressed at baseline as received Skyrizi infusion, also on home steroids per med list
Patient met SIRS criteria on admission with hypotension, febrile, tachycardia and tachypnea, WBC count within normal limits, lactic acid elevated
Source currently unknown, suspected source is sacral decubitus ulcer and/or pneumonia
Chest x-ray demonstrates nonspecific bilateral infiltrates with air bronchograms
Urinalysis does not appear infected, no urinary symptoms
Blood cultures drawn x 2 prior to be initiated on antibiotics
Patient was initiated on empiric vancomycin and cefepime
Infectious disease was consulted, added metronidazole
Continue IV antibiotics, while waiting for blood cultures
Continue stress dose IV steroids, changed from every 6 to every 8
Daily CBC, daily CMP, lactic acid has down trended
Consider sacral MRI for osteomyelitis�per ID
Patient's passed speech and swallow eval, ordered IDDSI 6 diet
Reinitiated p.o. home atorvastatin, fluoxetine, famotidine. Currently holding prednisone, oxybutynin, Remicade and supplements
#Acute hypoxic respiratory failure
Chest x-ray demonstrates nonspecific bilateral infiltrates, possible pulmonary edema, possible pneumonitis
Patient initially was requiring high flow 50 L via nasal cannula has been downgraded to mid flow 15 L
Currently satting low 90s on 15 L mid flow. Patient does desat when exerting herself
Reportedly patient does not use any oxygen at home
Lungs clear to auscultation on exam
Continue IV steroids
Continue mid flow, attempt to wean if tolerated
Echo, bilateral venous Dopplers to evaluate for clot/right heart strain
Will order CTA if echo or Doppler are abnormal to evaluate for PE
Will order CT chest without contrast if studies are normal
#Hyponatremia
Sodium stable 133
Urine studies resulted urine osmolality 589, urine sodium 94
Patient is volume overloaded on exam
Suspect SIADH, patient does have history of lung nodules
Discontinue IV fluids
CODE STATUS: Full code
DVT prophylaxis: Subcu heparin
Diet: IDDSI 6 with thin liquids
Subjective Dataa
Subjective Data
Date of Service:
Date of Service: August 03, 2024
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
Subjective:
Patient reports no new complaints overnight. Has been decreased from 50 L of high flow nasal cannula to mid flow 15 L. Currently satting 92% on 15 L. Patient does desat when moving to mid 80s. Patient's pressures are improved, pressors have been
titrated off and she is maintaining normotension. Reports her pain is well-controlled, reports she is short of breath which started when she came in the hospital. Night nurse also reports that pills had gotten stuck when swallowing.
Review of Systems
Cardiopulmonary: Dyspnea on Exertion, Cough (Denies), Wheezing (Denies) and Chest Pain (Denies)
GI: Other (No abdominal symptoms)
Neuro: Weakness
Objective Data
Data Reviewed
Vital Signs / I&O / Oxygen:
Vital Signs
Temp Pulse Resp BP Pulse Ox
97.6 F 80 12 112/71 92
08/03/24 08:13 08/03/24 08:30 08/03/24 08:30 08/03/24 08:00 08/03/24 08:35
Intake and Output
08/02/24 08/03/24 08/04/24
06:59 06:59 06:59
Intake Total 1500 / 1580 160 / 160
Output Total 150 / 150
Balance 1350 / 1430 160 / 160
SaO2 92
Nasal Cannula flow liters per 15
minute
Physical Exam
General: Respiratory Distress
Cardiovascular: S1-S2 and Regular Rhythm
Respiratory: Clear
GI: Soft
Neurology: Awake, Alert, Oriented and AO x 3
Labs/Micro/Reports
Lab Data
08/03/24 04:05
08/03/24 04:05
Microbiology
08/02/24 07:04 Blood/Venous Blood Culture - Preliminary
No Growth in 24 hours- Final report to follow
08/02/24 07:10 Blood/Venous Blood Culture - Preliminary
No Growth in 24 hours- Final report to follow
08/02/24 07:04 Nasal Swab Influenza Types A & B (PRANAV) - Final
Negative for Influenza A & B, NAAT
Negative results must be combined with clinical observations
and patient history.
Nucleic Acid Amplification test (NAAT)performed on the
[employer] platform.
--- NOTE | 2024-08-03 09:37 | W.PN.UPDATE ---
Update Note
Progress Note Update
I saw and evaluated the patient. I reviewed the resident�s note and agree with findings and plan as documented in the resident�s note with the following additions/corrections:
Subjective:
single elevated rectal T to 101.6
pressors were weaned off last night
now on midflow NC at 15 L
no events reported overnight
labs reviewed
CXR today: Heterogeneous bilateral pulmonary opacities. These are similar to the prior study. Findings likely represent pneumonia; my read interstitial - more likely pulmonary edema
Physical Exam
General: No Apparent Distress and Comfortable
Respiratory: Clear to auscultation bilaterally, no rales wheezes or ronchi
Cardiac: S1/S2 and Regular Rhythm
GI: Soft, Non Tender and Non Distended
Genito-urinary: no suprapubic tenderness
Skin: Warm and Dry; sacral wound with possible probe to bone, no surrounding erythema, no odor
Neuro: Awake, Alert
A&P:
Septic Shock
Hypoxemic resp failure
UC on Immunosuppression
Chronic Sacral decubitus ulcer
Adrenal Insufficiency
- note that
- wound seems to be most likely source of infection
- blood cultures x2
- superficial wound cultures generally not reliable for underlying cause of osteomyelitis and expected to be polymicrobial with colonizing adonis which will shift through time, in progress
- check pro BNP, historically it has been consistent with CHF, it has been 4 year since her last TTE would update now
- obtain sputum if able to produce one
- consider assessment for PE such as CTA
- unclear to me why she is having delayed wound healing if she is ambulatory; may relate to chronic steroids and immunosuppression, she does have a recent PT assessment 06/17 in which he was able to ambulate 20 ft with rolling walker and supervision
and was able to roll side to side in the bed without assistance
- given her functional status she could potentially be a candidate for wound vac vs repair of the sacral wound if she continues to improve from her hypoxemia; when bone is well covered and unlikely to be secondarily infected again would be the time
to consider pursuing further assessment for possible osteomyelitis. Would plan on either outpatient plastics assessment or inpatient assessment near the end of her hospital stay
- continue vancomycin, cefepime, metronidazole
- patient is clinically improving
AW
--- NOTE | 2024-08-03 11:13 | PTOTSP ---
Dysphagia Eval
Patient has acute on chronic dysphagia risk factors (i.e., septic shock with respiratory failure and concern for PNA; CVA, GERD, medium hiatal hernia per EGD 01/2016) and risk factors for aspiration complications (i.e., malnourished/frailty with
chronic sacral decubitus wound, immunosuppression via medications for UC, poor state of dentition). She currently presents with signs of at least mild oral dysphagia and reported signs concerning for pharyngoesophageal dysphagia (brief stasis,
reflux).
Recommend:
1. IDDDS Level 6 Soft/bite sized, Thin Liquids
2. Meds whole or crushed in puree
3. Strategies: upright to 90 degrees, assistance as needed, small sips/bites, slow rate, reflux precautions
4. Oral care 3x daily
5. Video swallow study if/when respiratory status appropriate.
6. Consider GI consult as appropriate given reports of worsened reflux and sensation of stasis in last week
--- NOTE | 2024-08-03 12:00 | PTCARENOTE ---
Pt. OOB to chair w PT/OT; tolerated chair position for approx 1.5H hour and then assisted back to bed for LE US. Wound care completed w WOC RN once back to bed. Call vanessa remains w in reach.
--- NOTE | 2024-08-03 12:36 | WOUNDNOTE ---
SACRAL WOUND 1945, [id number]
--- NOTE | 2024-08-03 12:45 | WOUNDNOTE ---
WO RN note: Patient admitted with sepsis
See H&P for complete history.
PMH: Ulcerative colitis -on Skyrizi. Chronic anemia -normocytic, Acute thrombocytopenia -126k, CVA, HTN
Wound Location and type/assessment: Patient admitted with stage 4 chronic sacral PI.
Appetite:
Pressure redistribution devices in place:
Plan:
Will confirm orders with hospitalist and update nurse.
Updated care plan and will follow as needed.
Note to case management of equipment requested for discharge:
Recommend follow up at wound care center upon discharge.
--- NOTE | 2024-08-03 12:49 | WOUNDNOTE ---
[facility] RN note: Patient admitted with sepsis
See H&P for complete history.
PMH: Ulcerative colitis -on Skyrizi. Chronic anemia -normocytic, Acute thrombocytopenia -126k, CVA, HTN
Wound Location and type/assessment: Patient admitted with stage 4 chronic sacral PI. Per chart review recent CT at last admission suggests osteomyelitis. The wound undermines approximately .5 cc, a tunnel was not located. Assessment was complicated
by positioning, as patient's P02 would rapidly decrease when turned to side. Drainage was serous and no odor was noted. Periwound skin improved since previous admission. Patient reports keeping wound open to air 'most of the time' and she denies
drainage. She explained that VN assesses wound occasionally but does not perform wound care at her request. Patient has declined air overlay at previous admission. She stated today that she does not want a hospital bed or air overlay. She has a
chair lift in her home and prefers to sleep in her own bed. She sits in wheelchair with foam cushion. Heels intact. Purwick in place.
Appetite: Poor
Pressure redistribution devices in place: Centrella Max Air, turning schedule, heels off-loaded with air cushion under calves.
Plan: Wound was cleaned with Vashe and packed with mesalt gauze. Patient was positioned in a right semi-side lying position. Protective foam applied to heels. Will confirm orders with hospitalist and update nurse. Updated care plan and will follow
as needed.
Note to case management of equipment requested for discharge: Recommend VN for wound care and air overlay to hospital bed if patient is agreeable.
Recommend follow up at wound care center upon discharge.
--- NOTE | 2024-08-03 13:53 | CM ---
Initial assessment completed with patient whose son lives with her in a 2 story plus basement home with 2 steps to enter, B/B on 2nd with a stair lift and 1/2 bath on 1st. 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
uses all the time. She also has a SPC that she does not use. She does not drive. She has had VN services for the past 3-4 weeks. No HC-POA. No service. PCP is Dr. Hannah Decker and Pharmacy is Dr. Hannah Decker. Discharge POC:
Patient would like to resume [facility] RN services. She does not want SNF. Therapy eval recommends Home PT vs SNF. Will follow.
[2024-08-03 14:33] LABS: Hematocrit 24.7 % (37.0-47.0); Hemoglobin 8.2 g/dL (12.0-16.0); Mean Corp Hgb Conc. 33.2 g/dL (33.0-37.0); Mean Corpuscular Hgb 28.6 pg (27.0-31.0); Mean Corpuscular Volume 86.1 fL (81.0-99.0); Mean Platelet Volume 10.2 fL (7.4-10.4); Platelet Count 124 10^3/uL (130-400); Red Blood Cell Count 2.87 10^6/uL (4.20-5.40); Red Cell Dist. Width 15.6 % (11.5-14.5); White Blood Cell Count 7.2 10^3/uL (4.8-10.8)
[2024-08-03] MEDS: HEPARIN 25000 UNITS/250 ML IV (14:34)
[2024-08-03] MEDS: HEPARIN 4600 UNITS IV (14:39)
[2024-08-03 14:45] LABS: APTT 35.8 Sec (23.4-35.0)
[2024-08-03] MEDS: LASIX 40 MG IV (14:49)
[2024-08-03 15:03] LABS: NT-proBNP 10300 pg/ml
--- NOTE | 2024-08-03 15:58 | W.PN.UPDATE ---
Update Note
Progress Note Update
Lower extremity duplex shows a nonocclusive thrombus in the left popliteal vein, with no DVT in the right lower extremity. Stat CTA chest shows a right upper lobe + RML acute PE with no evidence of right heart strain. Also diffuse groundglass
opacification suspicious for pulmonary edema. No significantly enlarged mass given her history of pulmonary nodules.
- Starting heparin drip
- Starting IV Lasix
- Trend UOP
- Continue to wean down supplemental O2 flow rate as tolerated
--- NOTE | 2024-08-03 17:30 | PTCARENOTE ---
S/P testing, pt (+) for LLE DVT and PE. Dr. Schultz aware of results. Further orders received; heparin bolus and gtt initiated per orders- see MAR/flow sheet. Bedrest initiated. Remains on 15LMF. Pt. assisted w repositioning and hygiene. Call
mendez placed back w in reach.
[2024-08-03] MEDS: LIPITOR 40 MG PO (18:12)
[2024-08-03] MEDS: PEPCID 20 MG PO (20:14)
--- NOTE | 2024-08-03 20:20 | PTCARENOTE ---
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 Sat high 90s on 15L MFNC. RW IV/RAC IV WNL- heparin gtt infusing per work list. prn morphine for sacral wd pain- turned/repositioned. chelsea care, new meetawick. mouth care done. POC discussed, call mendez with pt.
[2024-08-03 21:35] LABS: APTT > 200 Sec (23.4-35.0)
[2024-08-04] VITALS (26 sets, daily range): BP systolic 86–150; BP diastolic 41–102; BMI 23.0
--- NOTE | 2024-08-04 | PTCARENOTE ---
no changes in pt assessment.
[2024-08-04] MEDS: MORPHINE SULFATE 2 MG IV ×2 (03:27→07:44)
[2024-08-04] MEDS: SOLU-CORTEF 50 MG IV (03:27)
--- NOTE | 2024-08-04 03:45 | PTCARENOTE ---
no changes in assessment, prn morphine, chelsea care,turned/repositioned.
[2024-08-04] MEDS: VANCOCIN 150 IV (05:19)
[2024-08-04 05:52] LABS: % Basophils 0.1 % (0-2); % Immature Granulocytes 1.6 % (0-0.5); % Lymphocytes 11.8 % (20.5-51.1); % Monocytes 5.3 % (1.7-9.3); % Neutrophils 81.2 % (42.2-75.2); Absolute Immature Granulocytes 0.1 10^3/uL (0-0.05); Absolute Lymphocytes 0.9 10^3/uL (1.2-3.4); Absolute Monocytes 0.4 10^3/uL (0.1-0.6); Absolute Neutrophils 6.5 10^3/uL (1.4-6.5); Hematocrit 23.9 % (37.0-47.0); Hemoglobin 8.1 g/dL (12.0-16.0); Mean Corp Hgb Conc. 33.9 g/dL (33.0-37.0); Mean Corpuscular Hgb 28.5 pg (27.0-31.0); Mean Corpuscular Volume 84.2 fL (81.0-99.0); Nucleated Red Blood Cells % 0 %; Platelet Count 150 10^3/uL (130-400); Red Blood Cell Count 2.84 10^6/uL (4.20-5.40)
[2024-08-04 06:04] LABS: APTT > 200 Sec (23.4-35.0)
[2024-08-04] MEDS: STERILE WATER FOR INJECTION 10 ML IV ×2 (07:45→20:06)
[2024-08-04] MEDS: FLAGYL 500 MG PO (07:45)
[2024-08-04] MEDS: PROZAC 10 MG PO (07:45)
[2024-08-04] MEDS: LASIX 40 MG IV (07:45)
[2024-08-04] MEDS: MAXIPIME 2000 MG IV ×2 (07:45→20:07)
--- NOTE | 2024-08-04 08:06 | PTCARENOTE ---
Received pt @ change of shift. Pt. drowsy, awakens to verbal stim; ox3; c/o severe pain in LUE @ old IV infiltrate site and pain in sacrum- medicated w prn- see MAY. LUE ecchymotic/ +2 edema; warm compress applied. SR on monitor. SpO2 94% on
15LMF; pt. desaturates into mid 80's while mouth breathing; encouraged to breath through nares and saturation self recovers back to 93-94%. Auscultated dim breath sounds @ bases. +BS, abd soft/nt. Tolerating diet, no s/s of asp. Inc of bladder,
purewick in place draining clear/yellow urine. Heparin gtt reinitiated per protocol- see flow sheet. Pt. wound dressing intact and assisted w repositioning in bed. Bedrest maintained. Call mendez w in reach.
[2024-08-04 08:07] LABS: Blood Urea Nitrogen 21 mg/dl (7-17); Calcium 6.8 mg/dl (8.4-10.2); Carbon Dioxide 24 mmol/L (22-30); Chloride 107 mmol/L (98-107); Estimated Creatinine Clearance 59 ml/min; Glucose 142 mg/dl (70-99); Magnesium 1.3 mg/dl (1.6-2.3); Phosphorus 2.9 mg/dl (2.5-4.5); Potassium 2.8 mmol/L (3.5-5.1); Sodium 133 mmol/L (135-145); eGFR > 60.00
--- NOTE | 2024-08-04 08:12 | W.PN.ID1 ---
Addendum entered and electronically signed by Ileana Burton MD 08/04/24 15:17:
I saw and evaluated the patient. I reviewed the resident�s note and agree with findings and plan as documented in the resident�s note.
S: SOB better. No sacral pain at this time.
a/p
# Chronic stage IV non-healing sacral wound probes to bone
- Prelim wound cx: S. aureus
- Continue Vanco/cefepime/metronidazole pending final cx data
-Anticipate short course of abx.
# DVT/PE
- Acute hypoxemic respiratory failure
-s/p shock
- Fever resolved
# Ulcerative colitis on Remicade
# Adrenal insufficiency on chronic prednisone
Original Note:
Date of Service
Date of Service: July 08 patient seen and examined at bedside in no acute distress. She reports right upper arm pain from IV infiltration but reports feeling better today overall without any chest pain or shortness of breath. She denies fever and
chills, abdominal pain, nausea or vomiting.
Today's Communication
Clinically improving.
Continue vancomycin, cefepime and metronidazole.
Wound care.
Consider vascular consult.
Assessment / Plan
79-year-old female with PMH of chronic ulcerative rectosigmoiditis on [facility], chronic sacral decubitus ulcer, who presented to the ED today via EMS with weakness, confusion, hypotension and hypoglycemia.
Per patient's son, infliximab was discontinued and forced infusion of risankizumab was about a month ago after which she started feeling very unwell.
Assessment/plan:
#Septic shock secondary to chronic decubitus sacral ulceration
#Chronic decubitus sacral wound
#DVT/PE
#Possible pneumonia vs pneumonitis vs pulmonary edema
#Fever
#Hypoxia
#Suspected sacral osteomyelitis
- Much improved, vitals stable off Levophed and IVF.
- Remains afebrile with no leukocytosis.
- Blood cultures 08/02 x 2 in progress. No growth in 48 hours.
- Sacral wound culture and Gram stain 08/02 growing Staph aureus; Suspect polymicrobial including staph, strep, Pseudomonas, Bacteroides, anaerobic strep and Enterobacter.
- LE duplex 08/03 showed nonocclusive thrombus in left popliteal vein, RLE no DVT; stat CT chest PE positive for PE in right and middle lobe segmental pulmonary arteries with no RH strain.
- Bilateral scattered foci of groundglass consolidation suggestive of pulmonary edema; pneumonia and inflammatory pneumonitis less likely.
- MRSA screening in progress.
- Poor wound healing; noticed this wound has been going on for a couple of years from chart review.may be related to chronic steroid and immunosuppression, last A1c 5.4 a month ago.
- Consider MRI of sacrum when stable to evaluate for osteomyelitis.
- Consider plastic surgery consult to weigh in on wound VAC vs flap vs other better wound care strategy.
- Continue vancomycin, cefepime and metronidazole.
- Pressure offload.
- Heparin drip, IV Lasix and wean oxygen as tolerated.
- Pain control.
- Wound care.
Chief Complaint
-: Fever and Other (Sacral wound pain, circulatory shock)
Subjective / Review of Systems
Review of Systems: No Fever, No Chills, No Headache, No Chest Pain, No Abdominal Pain, No Nausea, No Vomiting and Other (Sacral wound pain)
Vital Signs / Physical Exam
Vital Signs
Vital Signs
Temp Pulse Resp BP Pulse Ox
97.6 F 87 16 126/64 94
08/04/24 08:10 08/04/24 07:45 08/04/24 05:30 08/04/24 07:45 08/04/24 08:00
Physical Exam
Constitutional: No Acute Distress and Comfortable
Cardiovascular: Regular Rate
Pulmonary: Symmetric and Non Labored
Gastrointestinal: Soft, Non Tender and Non Distended
Genito-Urinary: Bowen
Extremities: Edema (1+ b/l LE )
Skin: Dry and Rash (rash nearly resolved)
Wound: Other (Sacral wound measuring 3 x 1 x 2 cm, tunneled)
Neurological: Awake and AO x 3
Psychological: Calm
Objective Data
Lab Data
Lab Results
08/04/24 05:20
08/04/24 06:37
PT 15.9 Sec (11.4-14.6) H 08/02/24 07:04
INR 1.24 08/02/24 07:04
APTT > 200 Sec (23.4-35.0) H* 08/04/24 05:20
Estimated Creat Clear 59 ml/min 08/04/24 06:37
Lactic Acid 0.7 mmol/L (0.7-2.0) 08/02/24 16:43
Total Bilirubin 0.7 mg/dl (0.2-1.3) 08/03/24 04:05
AST 28 U/L (14-36) 08/03/24 04:05
ALT 11 U/L (0-35) 08/03/24 04:05
Alkaline Phosphatase 46 U/L (38-126) 08/03/24 04:05
Most recent labs reviewed.
Microbiology: Report Reviewed
Micro Results:
08/02/24 07:04 Blood Culture - Preliminary
Blood/Venous No Growth in 48 hours- Final report to follow
08/02/24 07:10 Blood Culture - Preliminary
Blood/Venous No Growth in 48 hours- Final report to follow
08/02/24 16:58 Wound Culture - Preliminary
Sacral Staphylococcus aureus
Gram Stain - Preliminary
08/03/24 08:48 Legionella Urinary Antigen - Final
Urine Negative for Legionella pneumophila Serogroup 1 antigen.
A negative result does not rule out the possiblity of
Legionella infection due to other serogroups or species of
Legionella. Clinical correlation is recommended.
Streptococcus pneumoniae Antigen (M - Final
Negative for Streptococcus pneumoniae antigen.
A negative result does not exclude infection with
Streptococcus pneumoniae. Clinical correlation is
recommended.
08/02/24 07:04 Influenza Types A & B (PRANAV) - Final
Nasal Swab Negative for Influenza A & B, NAAT
Negative results must be combined with clinical observations
and patient history.
Nucleic Acid Amplification test (NAAT)performed on the
[employer] platform.
08/03/24 04:05 MRSA Screen - Pending
Nose
--- NOTE | 2024-08-04 08:21 | W.PN.HOSP.TC ---
Addendum entered and electronically signed by Regino Mays DO 08/04/24 14:18:
Updated patient's son Jostin on the phone. All questions answered.
Original Note:
Today's Communication/Plan
-
Wean oxygen as able
Continue anticoagulation
Cold compresses to left upper extremity
PT/OT
Bowel regimen
Replete electrolytes
Assessment / Plan
Assessment / Plan
Gen- Awake, alert, mild distress due to pain
HEENT-NC, AT, anicteric, clear oral mm
Neck-supple
CV-reg, no M, +S1/S2
Lungs-clear B/L
Abd-soft, NT, ND
Ext- left upper extremity edema, ecchymosis
Musculoskeletal-no cyanosis, clubbing
Skin-warm and dry
Neuro-grossly non-focal
Psych-calm, cooperative
Shock -presumed to have been septic shock on presentation although now I am not convinced that she was septic. Blood cultures are remain negative. WBC count is normal. Defer antibiotics to infectious disease.
Off vasopressors with improved hemodynamics.
Etiology of shock possibly related to adrenal insufficiency in the setting of acute illness. Doubt cardiogenic shock.
IV fluids discontinued due to concern over possible heart failure, pulmonary edema.
Acute hypoxic respiratory failure -still requiring 15 L nasal cannula oxygen, wean down as able.
Etiology of hypoxic respiratory failure possibly due to pulmonary emboli as well as component of pulmonary edema. Pneumonia seems less likely but cannot rule out. CT chest shows scattered foci of groundglass consolidation bilaterally and
diffusely. Most likely due to pulmonary edema although pneumonia or pneumonitis are possible but less likely.
She was started empirically on IV Lasix by vulcanizer operator.
Echocardiogram shows normal biventricular size and systolic function without regional wall motion abnormality. Aortic sclerosis without stenosis. No significant change compared to prior study from 2019.
Of note BNP elevation is nonspecific especially in the setting of pulmonary emboli. Her BNP was 10,300.
Presumed acute heart failure with preserved EF exacerbation -IV Lasix per vulcanizer operator.
VTE, unknown acuity -nonocclusive thrombus in the left popliteal vein noted on Doppler ultrasound. Unknown acuity. She does not have asymmetric lower extremity edema on exam. Denies any leg symptoms.
CT chest shows pulmonary emboli in the right upper lobe and right middle lobe segmental pulmonary arteries. No right heart strain.
Started on IV heparin by vulcanizer operator.
I suspect the VTE was present prior to admission given her limited mobility. In addition she is relatively thrombophilic with her diagnosis of inflammatory bowel disease. Surprisingly, she has little in the way of symptoms considering the VTE.
This makes me think it is more likely to be chronic.
Chronic secondary adrenal insufficiency -has been on chronic steroids over the years, primarily for ulcerative colitis. Recently started on a high-dose taper mid June. Was on 10 mg daily prior to admission. Currently on stress dose steroids 50
mg IV hydrocortisone every 8hrs.
She is scheduled to follow-up with endocrinology in August. Discussed with patient's son.
She had an ACTH stimulation test March 2023 with a 60-minute cortisol level of 6 after ACTH dose.
Dysphagia -speech therapy recommends soft/bite-size, thin liquids. Aspiration precautions. Eventual video swallowing study.
Hyponatremia -sodium 133. Urine osmolality 589, urine sodium 94, suspect SIADH. Mild fluid restriction.
Hypokalemia - will replete.
Hypomagnesemia -will replete.
Hypocalcemia -will replete. Albumin 2.3.
Left upper extremity swelling -due to IV contrast extravasation during CT chest procedure. Recommend cold compresses for 24 hours then can switch to warm compresses. Discussed with nursing.
Chronic sacral decubital wound -no signs of superficial skin infection. Does tunnel fairly deep. 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 I doubt imaging with MRI would loom changeover operator currently.
Confusing picture as she claims that she gets up once per hour at home to walk. Usually these sacral decubital wounds happen in bedbound patients. In addition, I suspect she has underlying malnutrition contributing to the sacral wound. Agree with
ID the immunosuppression is preventing her appetite is poor at home and she seems to only eat 2 meals a day. Consult nutrition. Add Ensure to diet.
Would prefer outpatient plastic surgery evaluation.
Ulcerative colitis -on Skyrizi. Appears to have started a prednisone taper in mid June.
Chronic anemia -normocytic. Hemoglobin appears to be at baseline. 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
Acute thrombocytopenia - resolved. Etiology unclear, possibly due to sepsis. Monitor for now.
History of stroke
Essential hypertension -hold medications for hypotension.
Hyperlipidemia -atorvastatin.
Full code
PT/OT
Anticipated Discharge: > 48 hours
Subjective/Interval History
-
Date of Service: August 04, 2024
Patient seen and examined. Complaining of left arm pain.
Objective Data
-
Labs:
Laboratory Results
08/03/24 08/04/24 08/04/24
20:30 05:20 06:37
WBC 8.0
Hgb 8.1 L
Hct 23.9 L
Plt Count 150 D
APTT > 200 H* > 200 H*
Sodium Cancelled 133 L
Potassium Cancelled 2.8 L D
Chloride Cancelled 107
Carbon Dioxide Cancelled 24
BUN Cancelled 21 H
Creatinine Cancelled 0.6
Glucose Cancelled 142 H
Calcium Cancelled 6.8 L*
08/04/24
14:00
WBC
Hgb
Hct
Plt Count
APTT Pending
Sodium
Potassium
Chloride
Carbon Dioxide
BUN
Creatinine
Glucose
Calcium
Vital Signs:
Vital Signs
Temp Pulse Resp BP Pulse Ox
97.6 F 87 16 126/64 94
08/04/24 08:10 08/04/24 07:45 08/04/24 05:30 08/04/24 07:45 08/04/24 08:00
I&O
08/03/24 08/04/24 08/05/24
06:59 06:59 06:59
Intake Total 1500 / 1580 676 / 796 120 / 120
Output Total 150 / 150 2300 / 2300
Balance 1350 / 1430 -1624 / -1504 120 / 120
Review of Systems
-
History Source: Patient
All other systems: Reviewed and negative
--- NOTE | 2024-08-04 09:07 | PHA.VAN.FU ---
Vancomycin Assessment / Plan
- Assessment
Renal Function: Stable
WBC's are: WNL
In the past 24 hrs, patient has been: Afebrile
Concomitant Antimicrobials: Cefepime 2 gram IV q12h, Flagyl 500 mg PO BID
- Dosing Plan
Continue: Vancomycin 750 mg IV q24h
- Monitoring Plan
No level(s) ordered at this time: Consider level after 3rd maintenance dose
- Follow Up
Pharmacy will continue to follow.
Vancomycin Follow UP
- -
Patient Age: 79
Patient Sex: Female
Vancomycin Day #: 3
Indication: Bacteremia
Requesting Provider: Dr. Mays
Pertinent Antimicrobial Allergies:
NKDA
Height / Weight:
Height 5 ft 2 in
Actual Weight 57 kg
Pertinent Past Medical History: Chronic sacral decubital wound
- Vital Signs / Lab Results
Temp Pulse Resp BP Pulse Ox
97.6 F 87 16 126/64 94
08/04/24 08:10 08/04/24 07:45 08/04/24 05:30 08/04/24 07:45 08/04/24 08:00
Lab Results - Hematology
08/02/24 08/03/24 08/03/24
07:04 04:05 14:20
WBC 8.3 6.6 7.2
08/04/24
05:20
WBC 8.0
Lab Results - Chemistry
08/02/24 08/03/24 08/04/24
07:04 04:05 05:20
BUN 32 H 22 H Cancelled
Creatinine 0.8 0.6 Cancelled
Estimated Creat Clear 44 59 Cancelled
Albumin 2.4 L 2.3 L
08/04/24
06:37
BUN 21 H
Creatinine 0.6
Estimated Creat Clear 59
Albumin
08/02/24 08/02/24
07:04 16:43
Lactic Acid 2.9 H 0.7
Microbiology Results
08/02/24 07:04 Blood Culture - Preliminary
Blood/Venous No Growth in 48 hours- Final report to follow
08/02/24 07:10 Blood Culture - Preliminary
Blood/Venous No Growth in 48 hours- Final report to follow
08/02/24 16:58 Wound Culture - Preliminary
Sacral Staphylococcus aureus
Gram Stain - Preliminary
08/03/24 08:48 Legionella Urinary Antigen - Final
Urine Negative for Legionella pneumophila Serogroup 1 antigen.
A negative result does not rule out the possiblity of
Legionella infection due to other serogroups or species of
Legionella. Clinical correlation is recommended.
Streptococcus pneumoniae Antigen (M - Final
Negative for Streptococcus pneumoniae antigen.
A negative result does not exclude infection with
Streptococcus pneumoniae. Clinical correlation is
recommended.
08/02/24 07:04 Influenza Types A & B (PRANAV) - Final
Nasal Swab Negative for Influenza A & B, NAAT
Negative results must be combined with clinical observations
and patient history.
Nucleic Acid Amplification test (NAAT)performed on the
[employer] platform.
[2024-08-04] MEDS: KCL 270 MEQ IV (09:38)
[2024-08-04] MEDS: CALCIUM CHLORIDE 10% SYRINGE 60 MG IV (09:39)
[2024-08-04] MEDS: MAGNESIUM SULFATE 100 IV (09:40)
--- NOTE | 2024-08-04 09:54 | W.PN.INTV ---
Today's Communication / Plan
Recommendations
Potential IMU downgrade
Continue IV antibiotics
Continue IV heparin for 48 hours prior to bridge to DOAC
Attempt to wean oxygen requirements as tolerated
Potassium, magnesium, calcium repletion
Recheck BMP, mag, phosphate at 2 PM
Discontinue hydrocortisone, Replaced with prednisone taper starting tomorrow
Adjusted pain medications, added Dilaudid every 4 as needed for severe pain, morphine changed to moderate pain, added scheduled Tylenol every 4 for 4 doses total
Assessment
-
Assessment:
79-year-old female past medical history of ulcerative colitis on Skyrizi, stage IV chronic sacral decubitus ulcer presents for generalized weakness of approximately 3 days duration. Of note patient was hypotensive, tachycardic, requiring pressors
and high flow nasal cannula. Patient was admitted to the ICU for pressor support secondary to septic shock.
Plan:
#Septic shock
Resolved, have been titrated off pressors, currently maintaining normotension
Potential downgrade to IMU if stable
Patient immune suppressed at baseline as received Skyrizi infusion, also on home steroids per med list
Patient met SIRS criteria on admission with hypotension, febrile, tachycardia and tachypnea, WBC count within normal limits, lactic acid elevated
Source currently unknown, suspected source is sacral decubitus ulcer and/or pneumonia
Chest x-ray demonstrates nonspecific bilateral infiltrates with air bronchograms
Urinalysis does not appear infected, no urinary symptoms
Blood cultures no growth at 48 hours
Day 3 of empiric vancomycin and cefepime, day 2 metronidazole
Continue IV antibiotics, while waiting for blood cultures
IV steroids discontinued, replaced with p.o. prednisone taper starting tomorrow
Daily CBC, daily CMP, lactic acid has down trended
Consider sacral MRI/wound care per ID recommendations
Continue diet, continue home p.o. meds
Pain medications adjusted, initiated Dilaudid every 4 for severe pain, change morphine to moderate and added scheduled Tylenol 650 Q4 for 4 doses total
#Acute hypoxic respiratory failure
Likely secondary to pulmonary embolism and pulmonary edema
CT chest demonstrated nonspecific bilateral infiltrates are likely pulmonary edema
CTA demonstrated right middle and right upper lobe pulmonary embolism
Was initiated on IV heparin. Will continue for at least 48 hours prior to bridge to DOAC
Patient was initiated on IV Lasix yesterday, holding due to electrolyte imbalance
Initially requiring high flow 50 L, now on mid flow 15 L and nonrebreather mask
Reportedly patient does not use any oxygen at home
Lungs clear to auscultation on exam
IV steroids discontinued, will initiate prednisone taper tomorrow
Continue mid flow, attempt to wean if tolerated
Patient will require outpatient pulm follow-up for PFTs, referral placed in discharge tab
#Acute pulmonary embolism
#Lower extremity DVT
Presumed provoked secondary to immobility and ulcerative colitis
Patient reports she has never had any blood clots in her life prior to this
CTA demonstrated right middle and right upper lobe pulmonary embolism
Doppler lower extremity demonstrated nonocclusive thrombus left popliteal vein
Initiated on IV heparin
Will continue heparin for 48 hours prior to bridge to DOAC
Will likely require outpatient hematology follow-up for hypercoagulable workup and anticoagulation management
#Hypokalemia
Potassium decreased to 2.8 today
Status post oral 40 mEq and IV 40 mEq
Will recheck potassium at 2 PM with BMP
Hold Lasix for now
#Hypocalcemia
Calcium 6.8 today
Status post repletion
Recheck BMP at 2 PM
Hold Lasix for now
#Hypomagnesemia
Magnesium 1.3 today
Status post repletion
Recheck serum magnesium at 2 PM
Hold Lasix for now
#Hyponatremia
Sodium stable
Urine studies resulted urine osmolality 589, urine sodium 94
Patient is volume overloaded on exam
Patient was initiated on IV Lasix yesterday, has good urine output but holding today due to electrolyte imbalance
No IV fluids, moderate fluid restriction
CODE STATUS: Full code
DVT prophylaxis: Subcu heparin
Diet: IDDSI 6 with thin liquids
Subjective Dataa
Subjective Data
Date of Service:
Date of Service: August 04, 2024
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
Subjective:
No acute events overnight. Patient still requiring 15 L mid flow nasal cannula still satting mid 90s, lower with exertion. Has been initiated on IV heparin drip. Also initiated on Lasix for diuresis. Patient now has left arm pain, she did have
an event where her contrast was extravagant yesterday during her CTA. Currently receiving cold compresses. Patient reports no bowel movements.
Review of Systems
Cardiopulmonary: Edema (Left upper extremity edema and pain) and Other (Reports shortness of breath, no wheezing, no pleuritic chest pain.)
GI: Other (Negative)
Neuro: Weakness
Objective Data
Data Reviewed
Vital Signs / I&O / Oxygen:
Vital Signs
Temp Pulse Resp BP Pulse Ox
97.6 F 87 16 126/64 94
08/04/24 08:10 08/04/24 07:45 08/04/24 05:30 08/04/24 07:45 08/04/24 08:00
Intake and Output
08/03/24 08/04/24 08/05/24
06:59 06:59 06:59
Intake Total 1500 / 1580 676 / 796 120 / 120
Output Total 150 / 150 2300 / 2300
Balance 1350 / 1430 -1624 / -1504 120 / 120
SaO2 94
Nasal Cannula flow liters per 15
minute
Physical Exam
General: Respiratory Distress
Cardiovascular: S1-S2 and Regular Rhythm
Respiratory: Clear
GI: Soft
Neurology: Awake, Alert, Oriented and AO x 3
Skin: Other (Lower extremity edema present, improved from yesterday. Left upper extremity edema present. Contrast extravasation evidence)
Labs/Micro/Reports
Lab Data
08/04/24 05:20
08/04/24 06:37
Laboratory Results
08/03/24 08/03/24 08/04/24
14:20 20:30 05:20
APTT 35.8 H > 200 H* > 200 H*
Microbiology
08/02/24 16:58 Sacral Wound Culture - Preliminary
Staphylococcus aureus
08/02/24 16:58 Sacral Gram Stain - Final
08/03/24 04:05 Nose MRSA Screen - Final
No Methicillin Resistant Staphylococcus aureus isolated.
08/02/24 07:04 Blood/Venous Blood Culture - Preliminary
No Growth in 48 hours- Final report to follow
08/02/24 07:10 Blood/Venous Blood Culture - Preliminary
No Growth in 48 hours- Final report to follow
08/03/24 08:48 Urine Legionella Urinary Antigen - Final
Negative for Legionella pneumophila Serogroup 1 antigen.
A negative result does not rule out the possiblity of
Legionella infection due to other serogroups or species of
Legionella. Clinical correlation is recommended.
08/03/24 08:48 Urine Streptococcus pneumoniae Antigen (M - Final
Negative for Streptococcus pneumoniae antigen.
A negative result does not exclude infection with
Streptococcus pneumoniae. Clinical correlation is
recommended.
08/02/24 07:04 Nasal Swab Influenza Types A & B (PRANAV) - Final
Negative for Influenza A & B, NAAT
Negative results must be combined with clinical observations
and patient history.
Nucleic Acid Amplification test (NAAT)performed on the
[employer] platform.
--- NOTE | 2024-08-04 10:47 | VATNOTE ---
VAT rounds: Called to assess left arm infiltrate from ct scan. Left arm +3 edema red and painful. Left arm elevated on pillow and warm compress applied for comfort. Midline placed in right arm noted. Noted old skin tear around the midline sites.
Primary Rn made aware. Vaseline guaze applied/. Will monitor closely.
[2024-08-04] MEDS: TYLENOL 650 MG PO ×3 (12:35→20:07)
[2024-08-04] MEDS: KCL ELIXIR 40 MEQ PO (12:36)
--- NOTE | 2024-08-04 13:11 | PTCARENOTE ---
R midline placed by VAT this AM d/t limited venous access. Skin tear x2 found prior to R midline placement. Vaseline gauze applied on skin tears and midline dressing placed over. #20 R AC removed by VAT. K+ and Mag switched to R midline. Ca+
rider completed via #20 R hand. Heparin gtt switched to R hand PIV s/p midline placement. Pt. assisted w active repositioning in bed; PADILLA, self recovers. O2 titrated down to 12lMF, SpO2 96%. Call vanessa w in reach.
[2024-08-04 15:27] LABS: APTT > 200 Sec (23.4-35.0)
[2024-08-04 15:31] LABS: Blood Urea Nitrogen 21 mg/dl (7-17); Calcium 8.1 mg/dl (8.4-10.2); Carbon Dioxide 25 mmol/L (22-30); Chloride 106 mmol/L (98-107); Estimated Creatinine Clearance 51 ml/min; Glucose 206 mg/dl (70-99); Magnesium 3.5 mg/dl (1.6-2.3); Phosphorus 2.9 mg/dl (2.5-4.5); Potassium 4.1 mmol/L (3.5-5.1); Sodium 131 mmol/L (135-145); eGFR > 60.00
--- NOTE | 2024-08-04 15:45 | CM ---
IV/AB and heparin. Discharge POC: HH vs SNF. Patient wants resumption of [facility] VN, PT/OT.
[2024-08-04] MEDS: DILAUDID 0.5 MG IV (16:10)
--- NOTE | 2024-08-04 16:26 | PTCARENOTE ---
Pt. O2 weaned down to 6LNC, tolerating; SpO2 currently 99%; no s/s of resp distress. Heparin gtt on hold per orders- see flow sheet. St 4 sacral wound redressing and complete hygiene provided. Pt. assisted w repositioning in bed. Call mendez placed
w in reach.
[2024-08-04 17:14] LABS: Glucose - Point of Care 195 mg/dl (70-99)
[2024-08-04] MEDS: LIPITOR 40 MG PO (18:32)
[2024-08-04] MEDS: DITROPAN 5 MG PO (18:37)
[2024-08-04] MEDS: NOVOLOG FLEXPEN-LOW RESISTANCE 1 UNITS SC (18:37)
[2024-08-04] MEDS: FLAGYL PO (20:06)
--- NOTE | 2024-08-04 21:38 | PTCARENOTE ---
Pt lethargic, able to waken with voice and gentle touch, oriented x3 but goes right back to sleep. She repeats the same word over and over when asked a question. Pt did receive a dose of Dilaudid earlier in the day, and that seemed to be when her
mentation change YARDAGE CALLER Merry Engel was notified. Dilaudid was decreased. Also concerned about patients left arm, also notified YARDAGE CALLER regarding the swelling and blistering, order placed for U/S of left upper arm cold compress applied, and elevated. NSR
on the monitor. Q2 turns with pillows, heels off the bed.
[2024-08-04 22:06] LABS: Glucose - Point of Care 182 mg/dl (70-99)
[2024-08-04] MEDS: DITROPAN PO (22:50)
[2024-08-04] MEDS: PEPCID PO (22:50)
[2024-08-04 23:42] LABS: Venous Blood Gas B.E. -0.1 mmol/L (-4 to +4); Venous Blood Gas HCO3 25.4 mmol/L (22-27); Venous Blood Gas O2 Sat % 99.9 %; Venous Blood Gas pCO2 45 mmHg (35-48); Venous Blood Gas pH 7.36 (7.32-7.43); Venous Blood Gas pO2 128 mmHg (30-50)
[2024-08-04 23:59] LABS: Blood Urea Nitrogen 25 mg/dl (7-17); Carbon Dioxide 23 mmol/L (22-30); Chloride 106 mmol/L (98-107); Estimated Creatinine Clearance 32 ml/min; Glucose 148 mg/dl (70-99); Potassium 4.2 mmol/L (3.5-5.1); Sodium 131 mmol/L (135-145)
[2024-08-05] VITALS (51 sets, daily range): BP systolic 60–157; BP diastolic 32–118; BMI 22.5
[2024-08-05] MEDS: TYLENOL PO (00:09)
[2024-08-05 00:10] LABS: APTT 74.3 Sec (23.4-35.0)
[2024-08-05 00:43] LABS: Hematocrit 18.3 % (37.0-47.0); Hemoglobin 6.1 g/dL (12.0-16.0)
[2024-08-05] MEDS: DITROPAN PO ×4 (00:50→21:53)
[2024-08-05] MEDS: FLAGYL PO ×2 (00:51→07:29)
[2024-08-05] MEDS: PEPCID PO ×2 (00:52→22:04)
--- NOTE | 2024-08-05 02:10 | W.PN.UPDATE ---
Update Note
Progress Note Update
~ 21:00 Pt w/increased swelling in left upper extremity.
Ordered U/S peripheral venous left upper extremity. Impression: No evidence of DVT of the left upper extremity. Large mildly complex fluid collection in the left upper extremity as described above. Reportedly patient had infiltration of IV dye from
a CAT scan performed 08/03/24. Likely a residual IV contrast versus less likely a hematoma.
Continue treatment as ordered and continue to monitor.
~ 2 am Notified by RN, Hgb 6.1. (Per RN, H&H run second time to confirm results). Patient very lethargic, unable to stay awake to obtain consent. Called son, Jostin, and updated on need for transfusion, explained risks and benefit, he consented for
patient to receive blood products. Ordered type and screen, 1 unit PRBC, Hematest stool. Noted that patient has large area of bruising on left upper arm due to infiltrate. Due to complexity of multiple clots, will keep heparin gtt running at this
time. Ordered serial H&H Q6H.
~ 3 am Notified that patient's BP 81/37 (MAP 52), HR 70's, ordered NSS 250 mls bolus, Norepinephrine gtt if BP remains soft after bolus. Spoke with Finance Effectiveness Manager and ICU covering provider, will upgrade patient to ICU level of care.
--- NOTE | 2024-08-05 02:12 | PTCARENOTE ---
Pt remains lethargic, hemoglobin 6.1, son was called to obtain consent by CAMPAIGN ADVISOR. Left arm was measured at her bicep 36cm and forearm 29cm
--- NOTE | 2024-08-05 02:33 | PTCARENOTE ---
Late note, pt was unable to swallow her medications safely, meds were already opened, disposed of.
[2024-08-05] MEDS: NSS 250 IV (02:56)
[2024-08-05 04:06] LABS: B.E. -2.6 mmol/L; HCO3 22.5 mmol/L (21-28); O2 Saturation % 99.5 % (94-98); PCO2 39 mmHg (32-35); PO2 181 mmHg (83-108); pH 7.37 (7.35-7.45)
[2024-08-05] MEDS: LEVOPHED 250 IV ×2 (05:49→14:27)
--- NOTE | 2024-08-05 06:45 | W.PN.UPDATE ---
Update Note
Progress Note Update
0300- Patient had drop in hgb to 6.1 from 8.1 now hypotension sbp 70s-80s. Heparin gtt was initiated for acute PE without heart strain. Patient has head decreased mentation and more somnolent throughout the night, CO2 checked with history of
hypercapnia and hypoxia, within normal limits. Overall oxygenation has improved now on nasal cannula. Will check Ctscan of the head with drop in hemoglobin for completeness to rule out intracranial abnormalities.
Left arm with significant swelling from infiltration from IV, but now worsening large area over elbow and upper arm. Area is very bruised ecchymotic, tender, and painful. Possibly expanding hematoma, therefore will stop heparin gtt at this time
(with decreased hgb and hypotension). PRBCs ordered, will trend H&H. Patient re-upgraded to ICU. Levophed gtt ordered for hypotension, IVF bolus, and PRBCs x1. Will consult vascular surgeon, Dr. Arriaga for further evaluation of
vascular/hematoma. Dr. Schultz, steward/stewardess tourist class updated on plan and agreed with stopping heparin gtt due to possibly bleeding will need further evaluation.
[2024-08-05] MEDS: PROZAC PO (07:31)
--- NOTE | 2024-08-05 08:27 | W.PN.INTV ---
Today's Communication / Plan
Recommendations
Continue Levophed
Continue stress dose steroids
Hold all PO meds and also keep NPO given high risk of aspiration
If patient were to awaken, then can continue with comfort feeds and could consider resuming oral medications if in line with patient's goals of care
Per patient's family's discussion with the primary hospitalist, patient is now DNR/DNI and family agrees that they are not interested in prolonging her suffering hence antibiotics were stopped, morning labs were canceled and prn Dilaudid was ordered
Given that the patient remains on vasopressors, continue with ICU level of care. Will need to have goals of care discussion tomorrow as family is likely heading towards comfort care/hospice.
Assessment
-
Impression:
#Circulatory shock � shock state had resolved but overnight on 08/04 - 08/05/2024 she developed hypotension again and vasopressors restarted
#Left upper extremity contrast extravasation during CTA Chest on 08/03 now with acute hematoma without compartment syndrome
#Acute respiratory failure with hypoxia + hypercapnia
#Acute anemia with left upper extremity hematoma
#Starvation ketosis
#Hyponatremia � stable (over the past 8 years, her sodium has fluctuated between 128-137)
#Lactic acidosis
#Hypoalbuminemia
#Chronic anemia (baseline Hb: 9-11 g/dL)
#Ulcerative colitis on Skyrizi, previously on Remicade + prednisone taper
#Chronic sacral decubitus ulcer
#Anxiety/depression
#Adrenal insufficiency (Dx Mar 2023)
#CAD
#History of CVA (September 2016)
Plan:
- Patient was admitted to the ICU with hypotension and started on vasopressors as well as significant hypoxia requiring high flow nasal cannula
- She is chronically on steroids as an outpatient and BP improve when stress dose steroids with hydrocortisone was started on 08/02
- Patient's hypoxia however persisted and lower extremity duplex showed a LLE popliteal clot and subsequent CTA chest showed RUL + RML acute PE with scattered diffuse groundglass opacification which was very worrisome for acute
interstitial/pulmonary edema
- Heparin drip started, and she had been doing well on this however she developed worsening left upper extremity swelling with hematoma on the evening of 08/04 and heparin drip was stopped, and Hb was 6.1 with 1 unit PRBC transfused with repeat H&H
of 9
- Vascular surgery consulted and the arm was found to be soft with compartments also soft and Doppler signals positive on the radial and brachial arteries. No surgical intervention recommended.
- Goals of care discussion held with the hospitalist and the son, Christinao. Patient's prognosis is extremely poor and she unfortunately is deteriorating. Family likely leaning towards comfort care however they do not want to transition at this point
and want to continue vasopressors while they continue discussing goals of care amongst themselves
- Family okay with no additional blood draws as well
- Patient is now back on stress to steroids with hydrocortisone 50mg which I will change the frequency to q6hr
- I had started her on Florinef however given her acute encephalopathy, she is not appropriate to take PO meds. I will hold oral medications for now. Family not interested in us inserting a Dobbhoff tube
-Patient was on broad-spectrum antibiotics however these were now stopped in the setting of her heading towards comfort care
- Stopped IVF on 08/03 given her CTA chest findings with concern for volume overloaded
- Continue aspiration precautions
- Regarding the patient's left upper extremity which contrast extravasated into the surrounding tissues, need to focus on pain control
- Continue with cold compresses to help reduce inflammation
- prn nebulized bronchodilators - not currently bronchospastic
- DVT ppx: Hold heparin gtt and could use right sided SCD if not causing discomfort for the patient; would avoid SCD on the left lower extremity given her proximal DVT
Code status: Full code --> now made DNR/DNI
Given that the patient remains on vasopressors, continue with ICU level of care. Will need to have goals of care discussion tomorrow as family is likely heading towards comfort care/hospice.
Critical care statement: A total of 40 minutes of critical care time was provided for this patient today. This includes management of unstable vital signs, evaluation of the patient at bedside, reviewing the patient's pertinent medical records
including radiographs, microbiology, laboratory evaluations, and discussion with primary team, consultants, pharmacy, nutrition, physical therapy, case management, charge nurse, critical care nursing, and respiratory therapy.
Subjective Dataa
Subjective Data
Date of Service:
Date of Service: August 05, 2024
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
Subjective:
Was downgraded to IMU yesterday however due to increasing lethargy, acute anemia with suspected left upper extremity hematoma with worsening swelling as well as hypotension now on vasopressors, she was upgraded back to the ICU.
This morning patient remains lethargic. Left arm is diffusely ecchymotic and edematous although soft throughout with no concern for compartment syndrome, which was agreed by vascular surgery as well. Doppler signal is present for LUE radial and
brachial arteries. I spoke with the patient's grandson, Mehul and his significant other, and answered all the questions.
Review of Systems
General: Unobtainable - Pat Unresp
Objective Data
Data Reviewed
Vital Signs / I&O / Oxygen:
Vital Signs
Temp Pulse Resp BP Pulse Ox
97.3 F 107 16 102/51 96
08/05/24 08:26 08/05/24 08:26 08/05/24 08:26 08/05/24 08:26 08/05/24 11:06
Intake and Output
08/04/24 08/05/24 08/06/24
06:59 06:59 06:59
Intake Total 676 / 796 1034 / 1064 650 / 650
Output Total 2300 / 2300 1500 / 1500
Balance -1624 / -1504 -466 / -436 650 / 650
SaO2 96
Nasal Cannula flow liters per 2
minute
Physical Exam
General: Respiratory Distress (negative), Chills (negative), Sweats (negative) and Other (Minimally responsive)
HEENT: Normocephalic and Anicteric
Cardiovascular: S1-S2 and Peripheral Edema (+2 LE pitting edema bilaterally)
Respiratory: Wheeze (negative), Crackles (negative), Rhonchi (negative), Non-Labored Respirations and Other (diminished BS bilaterally)
GI: Soft, Non Distended, Non Tender and Normal Bowel Sounds
Neurology: Tremors (negative) and Unresponsive
Skin: Warm, Dry, Cyanosis (negative), Jaundice (negative) and Other (Lower extremity edema present, improved from yesterday. Left upper extremity edema present. Contrast extravasation evidence)
Labs/Micro/Reports
Lab Data
08/05/24 08:41
Laboratory Results
08/04/24 08/04/24 08/05/24
14:24 23:30 03:52
APTT > 200 H* 74.3 H
pH 7.37
pCO2 39 H
pO2 181 H
HCO3 22.5
O2 Delivery Level
08/05/24 08/05/24
08:41 10:04
APTT Cancelled 24.3
pH
pCO2
pO2
HCO3
O2 Delivery Level
Microbiology
08/02/24 16:58 Sacral Wound Culture - Final
S aureus-Methicillin Sensitive
08/02/24 16:58 Sacral Gram Stain - Final
08/02/24 07:04 Blood/Venous Blood Culture - Preliminary
No Growth in 72 hours- Final report to follow
08/02/24 07:10 Blood/Venous Blood Culture - Preliminary
No Growth in 72 hours- Final report to follow
08/03/24 04:05 Nose MRSA Screen - Final
No Methicillin Resistant Staphylococcus aureus isolated.
08/03/24 08:48 Urine Legionella Urinary Antigen - Final
Negative for Legionella pneumophila Serogroup 1 antigen.
A negative result does not rule out the possiblity of
Legionella infection due to other serogroups or species of
Legionella. Clinical correlation is recommended.
08/03/24 08:48 Urine Streptococcus pneumoniae Antigen (M - Final
Negative for Streptococcus pneumoniae antigen.
A negative result does not exclude infection with
Streptococcus pneumoniae. Clinical correlation is
recommended.
08/02/24 07:04 Nasal Swab Influenza Types A & B (PRANAV) - Final
Negative for Influenza A & B, NAAT
Negative results must be combined with clinical observations
and patient history.
Nucleic Acid Amplification test (NAAT)performed on the
[employer] platform.
--- NOTE | 2024-08-05 08:27 | W.PN.HOSP.TC ---
Addendum entered and electronically signed by Regino Mays DO 08/05/24 13:29:
Spoke with family and son at the bedside.
Family agreeable to DNR/DNI.
They understand that her prognosis is poor and unfortunately she is not improving.
We discussed her continued decline cognitively, acute anemia requiring transfusion, acute hypotension, acute kidney injury, etc.
Nursing is having difficulty getting accurate blood pressure due to significant left upper extremity edema and midline catheter in the right arm. Currently getting blood pressures using the right ankle which will not be accurate.
Would avoid arterial line as it will only cause undue pain and suffering.
She appears to be suffering, and I do not believe that aggressive medical care would be in her best interest. High risk for further complications.
Family agreeable to goal of comfort with possible transition to hospice in 24 to 48 hours if she continues to decline. Family agrees to hold off on treatment for her pulmonary emboli and DVT. They understand that anticoagulation will cause further
drops in blood pressure and further bleeding. They also want to avoid IVC filter placement as it will be unlikely to benefit her.
Discussed with ICU nurse and cushion spring assembler.
Addendum entered and electronically signed by Regino Mays DO 08/05/24 08:51:
Updated patient's son on the phone regarding her poor prognosis overall. I did mention my recommendation for DNR, DNI. Son plans to be here around 1:00 to discuss further and see his mother. He is not ready to commit to any decisions right now.
Original Note:
Today's Communication/Plan
-
Hold further anticoagulation
Stop antibiotics
Compression and elevation of left arm
CBC
IV steroids, stop prednisone
Goals of care
Assessment / Plan
Assessment / Plan
Gen- Awake, alert, mild distress due to pain
HEENT-NC, AT, anicteric, clear oral mm
Neck-supple
CV-reg, no M, +S1/S2
Lungs-clear B/L
Abd-soft, NT, ND
Ext-diffuse left upper extremity edema, ecchymosis
Musculoskeletal-no cyanosis, clubbing
Skin-warm and dry
Neuro-grossly non-focal
Psych-calm, cooperative
Acute metabolic encephalopathy -unclear etiology but differential diagnosis includes adverse effect to cefepime, acute anemia, pain due to left arm hematoma, etc.
Discontinue cefepime. CT head unremarkable. Stop IV morphine. Continue IV Dilaudid at a low dose as needed pain.
Shock -presumed to have been septic shock on presentation although now I am not convinced that she was septic. Blood cultures are remain negative. WBC count is normal. Will stop further antibiotics, will discuss with ID.
Etiology of shock possibly related to adrenal insufficiency in the setting of acute illness. Doubt cardiogenic shock.
IV fluids discontinued due to concern over possible heart failure, pulmonary edema.
Blood pressure dropped overnight and back on vasopressors, Levophed at 8 mcg currently. Resume IV hydrocortisone at stress doses, stop prednisone.
Acute hypoxic respiratory failure -improving, oxygenation down to 2 L nasal cannula currently. ABG this morning shows pO2 of 181 on 4 L.
Etiology of hypoxic respiratory failure possibly due to pulmonary emboli as well as component of pulmonary edema. Pneumonia seems less likely but cannot rule out. CT chest shows scattered foci of groundglass consolidation bilaterally and
diffusely. Most likely due to pulmonary edema although pneumonia or pneumonitis are possible but less likely.
Hold IV Lasix for hypotension.
Echocardiogram shows normal biventricular size and systolic function without regional wall motion abnormality. Aortic sclerosis without stenosis. No significant change compared to prior study from 2019.
Of note BNP elevation is nonspecific especially in the setting of pulmonary emboli. Her BNP was 10,300.
Acute on chronic anemia -hemoglobin down to 6.1 early this morning, was 8.1 yesterday. Suspect due to acute blood loss anemia due to left arm hematoma from IV contrast infiltration. Transfusion ordered. Repeat CBC pending. Baseline hemoglobin
appears to be 10.
Presumed acute heart failure with preserved EF exacerbation -last dose of IV Lasix was August 04, dose being held today for hypotension.
VTE, unknown acuity -nonocclusive thrombus in the left popliteal vein noted on Doppler ultrasound. Unknown acuity. She does not have asymmetric lower extremity edema on exam. Denies any leg symptoms.
CT chest shows pulmonary emboli in the right upper lobe and right middle lobe segmental pulmonary arteries. No right heart strain.
I suspect the VTE was present prior to admission given her limited mobility. In addition she is relatively thrombophilic with her diagnosis of inflammatory bowel disease. Surprisingly, she has little in the way of symptoms considering the VTE.
This makes me think it is more likely to be chronic.
Anticoagulation now on hold for acute anemia. Would consider IVC filter moving forward. Discuss with cushion spring assembler.
Chronic secondary adrenal insufficiency -has been on chronic steroids over the years, primarily for ulcerative colitis. Recently started on a high-dose taper mid June. Was on 10 mg daily prior to admission. Will resume stress dose steroids 50 mg
IV hydrocortisone every 8hrs given ongoing hypotension.
She is scheduled to follow-up with endocrinology in August. Discussed with patient's son.
She had an ACTH stimulation test March 2023 with a 60-minute cortisol level of 6 after ACTH dose.
Dysphagia -speech therapy recommends soft/bite-size, thin liquids. Aspiration precautions. Eventual video swallowing study. N.p.o. for now given altered mental status this morning.
Hyponatremia -sodium stable.
Hypokalemia -improved.
Hypomagnesemia -improved.
Hypocalcemia -stable.
Left upper extremity swelling -due to IV contrast extravasation during CT chest procedure. Arm looks more swollen today with ecchymosis. Evaluated by vascular surgery, Dr. Bowen this morning. Recommendation for Bert wrap and elevation. No
evidence of compartment syndrome per Dr. Bowen.
Chronic sacral decubital wound -no signs of superficial skin infection. Does tunnel fairly deep. 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 I doubt imaging with MRI would place change roof bolter currently.
Confusing picture as she claims that she gets up once per hour at home to walk. Usually these sacral decubital wounds happen in bedbound patients. In addition, I suspect she has underlying malnutrition contributing to the sacral wound. Agree with
ID the immunosuppression is preventing her appetite is poor at home and she seems to only eat 2 meals a day. Consult nutrition. Add Ensure to diet.
Would prefer outpatient plastic surgery evaluation.
Ulcerative colitis -on Brian. Appears to have started a prednisone taper in mid June.
Acute thrombocytopenia - resolved. Etiology unclear, possibly due to sepsis. Monitor for now.
History of stroke
Essential hypertension -hold medications for hypotension.
Hyperlipidemia -atorvastatin.
Full code
PT/OT
Overall prognosis remains poor given multiple comorbidities and acute issues. Will discuss with son.
Anticipated Discharge: > 48 hours
Subjective/Interval History
-
Date of Service: August 05, 2024
Patient seen and examined. Somewhat confused today. She keeps moaning but unable to express herself. Denies pain repeatedly.
Objective Data
-
Labs:
Laboratory Results
08/04/24 08/04/24 08/05/24
23:00 23:30 00:25
WBC Cancelled
Hgb Cancelled Cancelled 6.1 L* D
Hct Cancelled Cancelled 18.3 L*
Plt Count Cancelled
APTT 74.3 H
HCO3
Sodium 131 L
Potassium 4.2
Chloride 106
Carbon Dioxide 23
BUN 25 H
Creatinine 1.1 H
Glucose 148 H
Calcium 8.0 L
Total Bilirubin
AST
ALT
Alkaline Phosphatase
08/05/24 08/05/24 08/05/24
03:52 06:00 12:00
WBC Pending
Hgb Pending Pending
Hct Pending Pending
Plt Count Pending
APTT Pending
HCO3 22.5
Sodium Pending
Potassium Pending
Chloride Pending
Carbon Dioxide Pending
BUN Pending
Creatinine Pending
Glucose Pending
Calcium Pending
Total Bilirubin Pending
AST Pending
ALT Pending
Alkaline Phosphatase Pending
08/05/24
18:00
WBC
Hgb Pending
Hct Pending
Plt Count
APTT
HCO3
Sodium
Potassium
Chloride
Carbon Dioxide
BUN
Creatinine
Glucose
Calcium
Total Bilirubin
AST
ALT
Alkaline Phosphatase
Vital Signs:
Vital Signs
Temp Pulse Resp BP Pulse Ox
96.0 F L 96 18 93/54 95
08/05/24 07:00 08/05/24 07:37 08/05/24 07:00 08/05/24 07:37 08/05/24 06:55
I&O
08/04/24 08/05/24 08/06/24
06:59 06:59 06:59
Intake Total 676 / 796 1034 / 1034 250 / 250
Output Total 2300 / 2300 1500 / 1500
Balance -1624 / -1504 -466 / -466 250 / 250
Review of Systems
-
Unable to obtain full review of systems at this time due to: Acuity
[2024-08-05] MEDS: NOVOLOG FLEXPEN-LOW RESISTANCE SC ×2 (08:28→14:09)
--- NOTE | 2024-08-05 08:32 | CON.VAS ---
Consultation
Consultation Request
Date/Time Consultation Requested: 08/05/24
Date/Time Consultation Performed: 08/05/24
Performing Provider: Andrés
Reason for Consultation: Left arm hematoma
Medical History
-
Chief Complaint: left arm hematoma
History of Present Illness:
79 yo frail female. Stage IV sacral decub ulcer
Admitted with sepsis
LE DVT. Heparin gtt started
Underwent CT chest 08/03 to eval for PE
Left arm IV infiltration during contrast admin on 08/03
This IV has been removed
Had drop in Hgb overnight with associated left arm hematoma/ecchymosis
Heparin stopped
Asked to evaluate arm
Patient confused this AM
Reports to pain in the left arm
On physical exam her left arm is edematous diffusely from shoulder to hand
Pitting edema
Diffuse ecchymosis upper arm/forearm
Arm is soft throughout. Compartments all soft
Easily Doppler radial/brachial pulses left arm
Allergies / Home Medications
Allergy/AdvReac Type Severity Reaction Status Date / Time
No Known Allergies Allergy Verified 03/24/23 09:45
�Medication �Instructions �Recorded �Confirmed �Type
atorvastatin 40 mg tablet 40 mg PO QPM High cholesterol 11/28/18 08/02/24 History
potassium chloride 20 mEq 20 meq PO DAILY Electrolyte 02/09/21 08/02/24 History
tablet,extended Repletion
release(part/cryst) (Klor-Con M)
infliximab 100 mg intravenous 100 mg IV Q7W Ulcerative colitis 03/24/23 08/02/24 History
solution (Remicade)
oxybutynin chloride 5 mg tablet 5 mg PO DAILY Urinary Issue 03/24/23 08/02/24 History
Lactobac no.2-Bifidobac no.1-S. 1 cap PO DAILY Supplement 06/13/24 08/02/24 History
thermo 112.5 billion cell capsule
(Visbiome)
acetaminophen 325 mg tablet 650 mg PO Q6HPRN PRN mild pain 06/13/24 08/02/24 History
(Tylenol)
ascorbic acid (vitamin C) 1,000 mg 1,000 mg PO DAILY Supplement 06/13/24 08/02/24 History
tablet (Vitamin C)
biotin 10,000 mcg chewable tablet 10,000 mcg PO DAILY Supplement 06/13/24 08/02/24 History
(Hair, Skin and Nails (biotin))
calcium carbonate 1,000 mg PO DAILY Supplement 06/13/24 08/02/24 History
magnesium oxide 200 mg PO DAILY Supplement 06/13/24 08/02/24 History
oxybutynin chloride 10 mg 10 mg PO QPM Urinary Issue 06/13/24 08/02/24 History
tablet,extended release 24 hr
zinc sulfate 50 mg zinc (220 mg) 50 mg PO DAILY Supplement 06/13/24 08/02/24 History
tablet
famotidine 20 mg tablet 20 mg PO HS Gastrointestinal Issue 08/03/24 08/02/24 History
fluoxetine 10 mg capsule 10 mg PO DAILY Mental 08/03/24 08/02/24 History
Health/Anxiety
prednisone 10 mg tablet 10 mg PO DIRECTED ulcerative 08/03/24 08/02/24 History
colitis
Physical Exam
Vital Signs
Temp Pulse Resp BP Pulse Ox
97.3 F 107 16 102/51 95
08/05/24 08:26 08/05/24 08:26 08/05/24 08:26 08/05/24 08:26 08/05/24 06:55
Lab Results
Rmo-H-Zukmikmkwlt Pept Cancelled 08/03/24 07:04
Assessment / Plan
-
Left arm IV infiltration during contrast administration and now with associated hematoma while receiving anticoagulation
Recommend supportive care for the arm
-ANDRIA wrap compression from hand to shoulder at all times
-Elevate arm
Followup Hgb after transfusion.
Consider IVC filter if unable to resume anticoagulation
Call with questions/concerns
Data Reviewed
-
CT Scan: Image Personally Visualized and interpreted and Report Reviewed by me
Ultrasound: Image Personally Visualized and interpreted and Report Reviewed by me
Labs: Labs Reviewed by me
[2024-08-05] MEDS: VANCOCIN IV (08:51)
[2024-08-05] MEDS: STERILE WATER FOR INJECTION IV (08:52)
[2024-08-05] MEDS: MAXIPIME IV (08:52)
[2024-08-05] MEDS: SOLU-CORTEF 50 MG IV ×3 (09:00→23:45)
--- NOTE | 2024-08-05 09:00 | PTCARENOTE ---
Received pt @ change of shift. Mentation worsening from baseline overnight per report. Pt. currently lethargic; opens eyes to tactile stim for a few seconds; minimal speech; oriented to self/place only, required reorientation to time. Moaning out
but denying pain verbally; CPOT 6- medicated w prn- see MAY. SR on monitor. LUE +3, (+) L radial pulse by doppler. Vascular surgery to bedside this AM; LUE wrapped w compression and ice applied. SpO2 96% on 2LNC. +BS, abd soft/nt. NPO status d/t
mentation; Dr. Mays aware. Inc b/b. Purewick in place; minimal output; bladder scan prn. Wound dressing intact. 1 unit PRBC transfusion completed via R midline. Levo gtt switched to R midline s/p transfusion completion- see flow sheet.
Heparin gtt remains off per orders. Blood work drawn and sent to lab. Dr. Mays in touch w pt.'s son; plan for goals of care @ bedside today. Pt. repositioned per protocol and safe environment maintained.
[2024-08-05] MEDS: ZOFRAN 4 MG IV (09:01)
[2024-08-05 09:05] LABS: Lactic Acid 3.5 mmol/L (0.7-2.0)
[2024-08-05 09:06] LABS: Hematocrit 26.9 % (37.0-47.0); Mean Corp Hgb Conc. 33.5 g/dL (33.0-37.0); Mean Corpuscular Hgb 28.7 pg (27.0-31.0); Mean Corpuscular Volume 85.7 fL (81.0-99.0); Mean Platelet Volume 10.8 fL (7.4-10.4); Platelet Count 174 10^3/uL (130-400); Red Blood Cell Count 3.14 10^6/uL (4.20-5.40); Red Cell Dist. Width 15.2 % (11.5-14.5); White Blood Cell Count 16.9 10^3/uL (4.8-10.8)
[2024-08-05 09:13] LABS: NT-proBNP 7440 pg/ml
[2024-08-05 09:32] LABS: ALT (SGPT) 12 U/L (0-35); AST (SGOT) 22 U/L (14-36); Albumin 2.3 g/dl (3.5-5.0); Alkaline Phosphatase 41 U/L (38-126); Blood Urea Nitrogen 26 mg/dl (7-17); Calcium 7.9 mg/dl (8.4-10.2); Carbon Dioxide 19 mmol/L (22-30); Chloride 108 mmol/L (98-107); Estimated Creatinine Clearance 25 ml/min; Glucose 153 mg/dl (70-99); Magnesium 3.1 mg/dl (1.6-2.3); Phosphorus 4.1 mg/dl (2.5-4.5); Potassium 3.9 mmol/L (3.5-5.1); Sodium 134 mmol/L (135-145); Total Bilirubin 1.4 mg/dl (0.2-1.3); Total Protein 4.4 g/dl (6.3-8.2); eGFR 38.03
[2024-08-05] MEDS: DILAUDID 0.25 MG IV ×6 (10:08→23:45)
[2024-08-05 10:22] LABS: APTT 24.3 Sec (23.4-35.0)
--- NOTE | 2024-08-05 11:49 | W.PN.ID1 ---
Date of Service
Date of Service: August 05, 2024
Today's Communication
De-escalate abx.
Assessment / Plan
# Acute DVT/PE
# LUE IV contrast dye infiltration, now with expanding hematoma
# Blood loss anemia
# Shock on pressor
# Acute mental status change - suspect from cefepime
# Pulm edema
# DEEDEE
- continue Supportive/ICU care
- pt critically ill
-prognosis guarded
# Chronic stage IV non-healing sacral wound probes to bone
# Acute mental status change - suspect from cefepime
- Sacral Wound swab MSSA
- Sacral wound is the least of her problem at this time. Wound appears clean.
- De-escalate Vanco/cefepime/metronidazole (d4) to cefazolin short course.
# Hx of UC on biologic
Chief Complaint
-: Other (Sacral wound pain)
Subjective / Review of Systems
Patient confused, moaning. c/o left arm pain.
Vital Signs / Physical Exam
Vital Signs
Vital Signs
Temp Pulse Resp BP Pulse Ox
97.3 F 109 17 143/45 96
08/05/24 08:26 08/05/24 11:01 08/05/24 11:01 08/05/24 11:01 08/05/24 11:06
Physical Exam
Constitutional: Acutely Ill and Chronically Ill
Eyes: Sclera Anicteric
Cardiovascular: S1/S2 and Other (tachycardic)
Pulmonary: Clear (anteriorly)
Gastrointestinal: Soft, Non Tender, Non Distended and Normal Bowel Sounds
Genito-Urinary: Negative CVA Tenderness
Extremities: Edema (LUE 3+ edema with ecchymosis; BLE edema)
Neurological: Awake; Negative Meningeal Signs
Psychological: Confused and Agitated
Objective Data
Lab Data
Lab Results
08/05/24 08:41
PT 15.9 Sec (11.4-14.6) H 08/02/24 07:04
INR 1.24 08/02/24 07:04
APTT 24.3 Sec (23.4-35.0) 08/05/24 10:04
Estimated Creat Clear 25 ml/min 08/05/24 08:41
Lactic Acid 3.5 mmol/L (0.7-2.0) H 08/05/24 08:41
Total Bilirubin 1.4 mg/dl (0.2-1.3) H 08/05/24 08:41
AST 22 U/L (14-36) 08/05/24 08:41
ALT 12 U/L (0-35) 08/05/24 08:41
Alkaline Phosphatase 41 U/L (38-126) 08/05/24 08:41
Most recent labs reviewed.
Micro Results:
08/02/24 16:58 Wound Culture - Final
Sacral S aureus-Methicillin Sensitive
Gram Stain - Final
08/02/24 07:04 Blood Culture - Preliminary
Blood/Venous No Growth in 72 hours- Final report to follow
08/02/24 07:10 Blood Culture - Preliminary
Blood/Venous No Growth in 72 hours- Final report to follow
08/03/24 04:05 MRSA Screen - Final
Nose No Methicillin Resistant Staphylococcus aureus isolated.
08/03/24 08:48 Legionella Urinary Antigen - Final
Urine Negative for Legionella pneumophila Serogroup 1 antigen.
A negative result does not rule out the possiblity of
Legionella infection due to other serogroups or species of
Legionella. Clinical correlation is recommended.
Streptococcus pneumoniae Antigen (M - Final
Negative for Streptococcus pneumoniae antigen.
A negative result does not exclude infection with
Streptococcus pneumoniae. Clinical correlation is
recommended.
08/02/24 07:04 Influenza Types A & B (PRANAV) - Final
Nasal Swab Negative for Influenza A & B, NAAT
Negative results must be combined with clinical observations
and patient history.
Nucleic Acid Amplification test (NAAT)performed on the
[employer] platform.
08/05/24 CXR: Severe diffuse ground-glass opacity throughout both lungs which appears unchanged. Diagnostic possibilities are (1) severe bilateral pneumonia, (2) a severe inflammatory interstitial pneumonitis, or (3) alveolar pulmonary edema.
08/04/24 Periph Vasc US LUE: Large mildly complex fluid collection in the left upper extremity as described above. Reportedly the patient had infiltration of IV dye from a CAT scan performed 08/03/2024.
08/03/[address]: Positive for pulmonary emboli within the right upper lobe and right middle lobe segmental pulmonary arteries. No evidence of right heart strain.
2. Scattered foci of groundglass consolidation are seen bilaterally and diffusely. Mild thickening of the interstitial compartment. Findings are most suggestive of pulmonary edema. Infectious or inflammatory pneumonitis is a less likely possibility.
Care Review
Plan reviewed with: Physician (Dr. Mays)
[2024-08-05 14:16] LABS: Glucose - Point of Care 174 mg/dl (70-99)
--- NOTE | 2024-08-05 15:48 | PTCARENOTE ---
Dr. Mays to bedside to discuss goals of care with pt.'s son. Further orders received for change in code status to DNR; bracelet applied. Plan for conservative medical management; orders changed to reflect care plan. Admin pain prn per CPOT-
see MAR. Pt. repositioned per protocol. Safe environment maintained.
--- NOTE | 2024-08-05 19:32 | PTCARENOTE ---
Pt lethargic, opens eyes to tactile stimuli and moans. Afebrile. NSR on monitor, +1 anasarca, remains on 4mcg of Levophed. Oxygen requirements increased, simple mask in used at times. Left arm with ANDRIA bandage, doppler pulse.
[2024-08-06 01:00] VITALS: BP 130/111
[2024-08-06 02:00] VITALS: BP 125/77
[2024-08-06 03:00] VITALS: BP 108/78
[2024-08-06] MEDS: DILAUDID 0.25 MG IV ×2 (03:28→06:13)
[2024-08-06 03:34] VITALS: BP 112/62
[2024-08-06 04:30] VITALS: BP 151/61
[2024-08-06 05:00] VITALS: BP 130/61
[2024-08-06] MEDS: SOLU-CORTEF 50 MG IV (05:46)
[2024-08-06 06:00] VITALS: BMI 22.5
--- NOTE | 2024-08-06 06:05 | PTCARENOTE ---
Pt lethargic, spontaneously opens eyes to painful stimuli. Pt moaning in pain, PRN medications given. NSR on monitor, +1 anasarca. Left arm +3 is ANDRIA bandaged with palpable left radial pulse. Levophed weaned off. remains on 4L o2.
--- NOTE | 2024-08-06 07:22 | W.PN.HOSP.TC ---
Today's Communication/Plan
-
Transition to hospice
Assessment / Plan
Assessment / Plan
Gen- Awake, not alert, looks uncomfortable
HEENT-NC, AT, anicteric, clear oral mm
Neck-supple
CV-reg, no M, +S1/S2
Lungs-clear B/L
Abd-soft, NT, ND
Ext-left arm compression Bert wrap, swollen left hand
Musculoskeletal-no cyanosis, clubbing
Skin-warm and dry
Neuro-grossly non-focal
Psych-calm, cooperative
Acute metabolic encephalopathy -unclear etiology but differential diagnosis includes adverse effect to cefepime, acute anemia, pain due to left arm hematoma, etc.
No improvement in mental status.
At this point in time I believe that patient is actively dying. She appears to be suffering. Comfort should be the priority.
Discussed with her son Jostin on the phone this morning. He is agreeable to transition to hospice and start morphine and transition to morphine drip.
She has received a total of 2 mg of IV Dilaudid in 0.25 mg increments since 10 AM yesterday.
Shock -off vasopressors and antibiotics. Transition to hospice.
Discontinued further blood work.
Stop steroids.
Acute hypoxic respiratory failure
Acute on chronic anemia
Presumed acute heart failure with preserved EF exacerbation
VTE, unknown acuity
Chronic secondary adrenal insufficiency
Dysphagia
Hyponatremia
Hypokalemia
Hypomagnesemia
Hypocalcemia -
Left upper extremity swelling
Chronic sacral decubital wound
Ulcerative colitis
Acute thrombocytopenia
History of stroke
Essential hypertension
Hyperlipidemia
DNR/DNI
Transition to inpatient hospice. Son Jostin agreeable.
Anticipated Discharge: Within 24 hours
Subjective/Interval History
-
Date of Service: August 06, 2024
Patient seen and examined. Awakens when I call her name but not able to have a conversation, does not remain alert. Denies pain but looks uncomfortable. Not answering questions otherwise.
Objective Data
-
Labs:
Laboratory Results
08/06/24
06:00
WBC Cancelled
Hgb Cancelled
Hct Cancelled
Plt Count Cancelled
Sodium Cancelled
Potassium Cancelled
Chloride Cancelled
Carbon Dioxide Cancelled
BUN Cancelled
Creatinine Cancelled
Glucose Cancelled
Calcium Cancelled
Vital Signs:
Vital Signs
Temp Pulse Resp BP Pulse Ox
97.8 F 86 15 130/61 100
08/06/24 03:00 08/06/24 05:30 08/06/24 05:30 08/06/24 05:00 08/06/24 05:30
I&O
08/05/24 08/06/24 08/07/24
06:59 06:59 06:59
Intake Total 1034 / 1064 919.1 / 919.1
Output Total 1500 / 1500 0 / 0
Balance -466 / -436 919.1 / 919.1
Review of Systems
-
Unable to obtain full review of systems at this time due to: Acuity
--- NOTE | 2024-08-06 07:42 | W.DS.TRANS ---
DC Summary - Slitter Service And Setter
-
Discharge Instructions:
Discharge Diagnosis/Procedures Shock, respiratory failure, adrenal
insufficiency
Diet Other diet
Additional Diets N.p.o.
Activity Other activity
Additional Activity Bed rest
Driving Restrictions No driving
Bathing Restrictions None
Instructions:
Stand-Alone Forms:
Changes to Home Medications: Yes
Discharge Medications:
DC Medications w/original date entered in [employer]
atorvastatin 40 mg tablet 40 mg PO QPM High cholesterol 11/28/18
potassium chloride 20 mEq tablet,extended release(part/cryst) (Klor-Con M) 20 meq PO DAILY Electrolyte Repletion 02/09/21
infliximab 100 mg intravenous solution (Remicade) 100 mg IV Q7W Ulcerative colitis 03/24/23
oxybutynin chloride 5 mg tablet 5 mg PO DAILY Urinary Issue 03/24/23
Lactobac no.2-Bifidobac no.1-S. thermo 112.5 billion cell capsule (Visbiome) 1 cap PO DAILY Supplement 06/13/24
acetaminophen 325 mg tablet (Tylenol) 650 mg PO Q6HPRN PRN mild pain 06/13/24
ascorbic acid (vitamin C) 1,000 mg tablet (Vitamin C) 1,000 mg PO DAILY Supplement 06/13/24
biotin 10,000 mcg chewable tablet (Hair, Skin and Nails (biotin)) 10,000 mcg PO DAILY Supplement 06/13/24
calcium carbonate 1,000 mg PO DAILY Supplement 06/13/24
magnesium oxide 200 mg PO DAILY Supplement 06/13/24
oxybutynin chloride 10 mg tablet,extended release 24 hr 10 mg PO QPM Urinary Issue 06/13/24
zinc sulfate 50 mg zinc (220 mg) tablet 50 mg PO DAILY Supplement 06/13/24
famotidine 20 mg tablet 20 mg PO HS Gastrointestinal Issue 08/03/24
fluoxetine 10 mg capsule 10 mg PO DAILY Mental Health/Anxiety 08/03/24
prednisone 10 mg tablet 10 mg PO DIRECTED ulcerative colitis 08/03/24
Home Medication Changes
Stop home medications
Pending Results: No
--- NOTE | 2024-08-06 07:52 | PTCARENOTE ---
Pt received in bed @ 0700. Moaning in pain on follow up PRN medication assessment. Sinus rhythm on lunchroom monitor. MAP remains > 65 without pressors. New order for inpatient hospice and comfort care measures.
--- NOTE | 2024-08-06 07:58 | W.PN.UPDATE ---
Update Note
Progress Note Update
Patient is being transitioned to hospice. No additional recommendations at this time. Dye Reel Operator Helper/Pulmonary service will now sign off. Thank you for allowing us to be involved in the care of this patient. Please call back with any questions or
concerns. Emotional support was provided to the family.
--- NOTE | 2024-08-06 10:14 | CM ---
CM reviewed chart and spoke with nursing/Coy
Plan for [facility] hospice
Update to hospice/Amelia and referral sent via [facility]
Discharge Disposition- [facility] hospice
== END 2024-08-06 07:56 | disposition hospice, inpatient (51) | DRG 871 ==
LOC: ICU 09:27
PROVIDERS: Nurse Practitioner Family; ADMITTING PHYSICIAN Hospitalist; CONSULT PHYSICIAN Internal Medicine Critical Care Medicine; CONSULT PHYSICIAN Student in an Organized Health Care Education/Training Program; EMERGENCY PHYSICIAN Student in an Organized Health Care Education/Training Program; FAMILY PHYSICIAN Internal Medicine; OTHER PHYSICIAN Surgery Vascular Surgery
PROC: 30233N1 Transfusion of Nonautologous Red Blood Cells into Peripheral Vein, Percutaneous Approach (ICD-10-PCS; 2024-08-05)
DX: A41.9 Sepsis, unspecified organism (principal); G93.41 Metabolic encephalopathy; L89.154 Pressure ulcer of sacral region, stage 4; J96.01 Acute respiratory failure with hypoxia; I26.99 Other pulmonary embolism without acute cor pulmonale; R65.21 Severe sepsis with septic shock; N17.9 Acute kidney failure, unspecified; I82.402 Acute embolism and thrombosis of unspecified deep veins of left lower extremity; E27.49 Other adrenocortical insufficiency; E87.1 Hypo-osmolality and hyponatremia; E46 Unspecified protein-calorie malnutrition; E27.40 Unspecified adrenocortical insufficiency; D64.9 Anemia, unspecified; Z51.5 Encounter for palliative care; E83.51 Hypocalcemia; E87.6 Hypokalemia; Z66 Do not resuscitate; Z68.22 Body mass index [BMI] 22.0-22.9, adult; Z11.52 Encounter for screening for COVID-19
CPT/HCPCS: 36600; 70450; 71045; 71275; 80048; 80053; 81003; 81015; 82805; 82962; 83605; 83735; 83880; 83930; 83935; 84100; 84300; 85014; 85018; 85025; 85027; 85610; 85730; 86850; 86900; 86901; 86920; 87040; 87070; 87147; 87186; 87205; 87449; 87502; 87811; 87899; 92610; 93005; 93306; 93970; 93971; 96361; 96374; 97163; 97167; 99291; P9016; Q9967

== ENCOUNTER 2024-08-06 08:01 | Inpatient (IN) | payer OTHER, SELFPAY ==
[2024-08-06 08:23] VITALS: BMI 23.4
[2024-08-06] MEDS: MORPHINE SULFATE 2 MG IV ×2 (08:34→10:26)
--- NOTE | 2024-08-06 09:17 | PTCARENOTE ---
Pt admitted to inpatient hospice. Oriented to self. Moaning and restless. PRN Morphine 2mg IV given for CPOT of 6.
--- NOTE | 2024-08-06 11:05 | HOSPNOTE ---
Referral received. Spoke to son Jostin who is in agreement with inpatient hospice. He will be at the hospital as soon as he can. He will then sign consents. CM/Attending and Primary nurse updated.
[2024-08-06] MEDS: NSS (PRESERVATIVE FREE) 1 ML IV (11:16)
[2024-08-06] MEDS: ATIVAN 1 MG IV ×2 (11:16→21:45)
[2024-08-06 11:17] VITALS: BP 112/60
--- NOTE | 2024-08-06 11:27 | PTCARENOTE ---
Pt transferred from ICU as in patient hospice. Pt in bed but restless, IV ativan given. Son will be coming in shortly. Pt given call mendez.
--- NOTE | 2024-08-06 11:57 | ADM.HSP ---
Admission - Hospice
History of Present Illness
79-year-old female admitted August 02 to the hospital with chief complaint of weakness.
Diagnosed with septic shock and respiratory failure. Found to have pulmonary embolism and DVT. Developed severe left arm swelling due to IV contrast infiltration. Subsequently developed worsening encephalopathy. Acute kidney injury.
Given poor prognosis, family opted for transition to inpatient hospice.
Reason for Hospice Admission
End-of-life care
Review of Systems
Unable to obtain full review of systems at this time due to: Acuity
Physical Exam
Temp Pulse Resp BP Pulse Ox
94.4 F L 100 10 112/60 84
08/06/24 11:17 08/06/24 11:17 08/06/24 11:17 08/06/24 11:17 08/06/24 11:17
General: Appears in Distress, Pain and Appears Chronically Ill
Respiratory: Clear to Auscultation
Cardiology: Regular Rhythm and S1/S2
Breast: Deferred by me
GI: Soft, Nontender and Nondistended
Musculoskeletal: No Clubbing, No Cyanosis and Edema, Left Upper Extremmity
Skin: Warm and Dry
Neuro: Sedated
Hematologic/Lymphatic: No Lymphadenopathy
Psych: Calm
Assessment/Medication Plan
Generic Name Dose Route Start Last Admin
Trade Name Freq PRN Reason Stop Dose Admin
Glycopyrrolate 0.2 mg 08/06/24 08:10
Glycopyrrolate 0.2 Mg/Ml Vial IV 09/03/24 08:09
Q4HPRN PRN
excessive secretions
Morphine Sulfate/Sodium Chloride 100 mg in 100 mls @ 0 mls/hr 08/06/24 08:15
Morphine IV
PER PROTOCOL GORDON
Protocol
Per Protocol
Lorazepam 1 mg 08/06/24 08:10 08/06/24 11:16
Lorazepam 2 Mg/Ml Vial IV 09/03/24 08:09 1 mg
Q2HPRN PRN Administration
anxiety
Protocol
Morphine Sulfate 2 mg 08/06/24 08:10 08/06/24 10:26
Morphine 2 Mg/Ml Syringe IV 08/20/24 08:09 2 mg
Q1HPRN PRN Administration
moderate-severe pain / dyspnea
Morphine Sulfate 0 mg 08/06/24 08:10
Morphine 2 Mg/Ml Syringe IV 08/20/24 08:09
[id number] PRN
moderate-severe pain / dyspnea
Protocol
Ondansetron HCl 4 mg 08/06/24 08:10
Ondansetron 4 Mg/2 Ml Vial IV 09/03/24 08:09
Q6HPRN PRN
nausea/vomiting
Pharmacy Profile Note 0 unit 08/06/24 09:[address] 1 Unit IV 09/03/24 08:59
DIRECTED GORDON
Sodium Chloride 0 flush 08/06/24 09:00
Sodium Chloride 0.9% (Flush) Syringe IV 09/03/24 08:59
PER PROTOCOL GORDON
Sodium Chloride 0 ml 08/06/24 09:00 08/06/24 11:16
Sodium Chloride 0.9% (Preservative Free) 10 Ml Vial IV 09/03/24 08:59 1 ml
Q2HPRN PRN Administration
IV lorazepam dilution
Protocol
End-of-life care -admit to inpatient hospice. Patient's son Jostin in agreement.
Multiple active comorbidities during recent hospitalization including shock, encephalopathy, VTE, acute kidney injury, adrenal insufficiency. Severe left arm swelling due to IV contrast infiltration during CT scan.
Start IV morphine as needed and transition to morphine drip as needed. IV Ativan as needed for anxiety.
Hospice consulted.
--- NOTE | 2024-08-06 13:22 | W.PN.UPDATE ---
Update Note
Progress Note Update
Visited patient on 2N. She has agonal and shallow breathing, decreased respiratory rate. Comatose. Looks comfortable. Currently on IV morphine as needed.
Patient's son at the bedside. Agreeable with continued treatment for end-of-life, hospice.
It is expected she will pass today.
Spoke with hospice nurse. Spoke with patient's nurse.
--- NOTE | 2024-08-06 16:51 | PTCARENOTE ---
Pt inpatient hospice- Son in room with other visitors present. Pt very apneic. No signs of pain or any distress. Family offered support. Comfort tray ordered.
[2024-08-06] MEDS: NSS (PRESERVATIVE FREE) 0.5 ML IV (21:45)
--- NOTE | 2024-08-06 22:37 | HOSPNOTE ---
Patient admitted inpatient hospice. Son signed consents. Patient is inpatient hospice for the management of pain and anxiety. Hospice will visit daily.
[2024-08-07] MEDS: MORPHINE SULFATE 2 MG IV ×4 (01:21→23:41)
[2024-08-07] MEDS: NSS (PRESERVATIVE FREE) 0.5 ML IV (04:25)
[2024-08-07] MEDS: ATIVAN 1 MG IV ×2 (04:26→13:41)
[2024-08-07 08:18] VITALS: BP 161/61
--- NOTE | 2024-08-07 09:16 | HOSPNOTE ---
Patient GIP for management of pain and anxiety requiring IV medication, patient unable to swallow. Patient required 3 PRN doses of Ativan and Morphine in the last 24 hours. Patient minimally responsive, moved hand to RN touch, kept eyes closed.
Breathing shallow at 10 BPM. Hospice to visit daily.
--- NOTE | 2024-08-07 10:22 | CM ---
Reviewed the chart notes. Patient's son resides with patient in a two story home with two steps to enter. Rolling walker and stair glide in home. CM continues to be available to patient/family.
Plan: GIP Hospice.
--- NOTE | 2024-08-07 11:29 | W.PN.HOSP.TC ---
Today's Communication/Plan
-
Monitor vitals
See plan
Continue with inpatient hospice
Morphine, Ativan
Discussed with son at bedside
Assessment / Plan
Assessment / Plan
General: Comfort
Respiratory: Clear to Auscultation
Cardiology: Regular Rhythm
GI: Soft, Nontender and Nondistended
Musculoskeletal: Edema, Left Upper Extremmity
Neuro: Sedated
Psych: Calm
Inpatient hospice
Son at bedside
Continue with morphine with transition to drip if needed
Continue Ativan as needed
Other medical history
Circulatory shock
Toxic metabolic encephalopathy
VTE
Acute kidney injury
Renal insufficiency
Left upper extremity acute hematoma
Starvation ketosis
Lactic acidosis
Ulcerative colitis
Chronic sacral decubitus ulcer
Anxiety/depression
CAD
History of CVA
DVT prophylaxis
Comfort measures
DNR
Anticipated Discharge: Within 24 hours
Subjective/Interval History
-
Date of Service: August 07, 2024
Comfortable
Objective Data
-
Vital Signs:
Vital Signs
Temp Pulse Resp BP Pulse Ox
97.5 F 66 12 161/61 88
08/07/24 08:18 08/07/24 08:18 08/07/24 08:18 08/07/24 08:18 08/07/24 10:51
I&O
08/06/24 08/07/24 08/08/24
06:59 06:59 06:59
Intake Total 0 / 0
Balance 0 / 0
[2024-08-07] MEDS: NSS (PRESERVATIVE FREE) 10 ML IV (13:41)
--- NOTE | 2024-08-07 13:52 | HOSPNOTE ---
Valerie was sleeping comfortably, non-responsive. She did not show signs of pain. Son Jostin was present, along with extended family. He shared background about his mother, whom he lovingly cared for in her illness. Freelance Writer provided emotional and
spiritual support through presence, dialogue, Scripture reading and prayer. Will continue support through weekly visits.
[2024-08-07 20:23] VITALS: BP 117/55
[2024-08-08] MEDS: MORPHINE SULFATE 2 MG IV ×2 (01:28→02:31)
[2024-08-08] MEDS: MORPHINE 100 IV (03:38)
[2024-08-08 07:55] VITALS: BP 99/49
--- NOTE | 2024-08-08 09:02 | HOSPNOTE ---
Speech And Language Tutor visited 79 year old patient to conduct Initial DREDGE RUNNER Assessment. Patient recently admitted onto Hospice Services and [facility] Level of Care with the Primary Diagnosis of Sepsis. Nurse reported patient medications administered and
patient is comfortable. DREDGE RUNNER greeted patient upon entering the room, no response. Patient appeared to be resting comfortably, no signs of pain and/or distress observed. No family was present at patient's bedside. DREDGE RUNNER contacted patient's son Jostin to
provide supportive services. Jostin reported he's doing okay and will be up to visit patient later this morning. Jostin reported patient was for 52 years and they met at a friend's wedding, spouse passed 7 years ago. Jostin reported patient
had 2 children 1 son and 1 daughter, patient's daughter passed at the age of 43. Jostin reported patient has 5 grandchildren and 3 great grandchildren. Jostin reported family is coping appropriately. 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 Patient enjoyed cooking and raising her children. Jostin reported just recently patient loved word searches and watching game shows together. Patient is Jehov[employer] Witness and affiliates with [facility] [employer]. Patient wishes are to be buried
alongside her spouse and arrangements will be conducted through [facility] in [place]. Emotional Support Provided.
Patient meets [facility] criteria for SN Assessments, management of pain, dyspnea, anxiety, and administrating of medications via IV that could not be managed at home and/or in an Outpatient setting. Discharge planning continues.
DREDGE RUNNER will conduct visits once a week while on GIP to provide supportive services and to monitor for additional services.
--- NOTE | 2024-08-08 09:27 | CM ---
Reviewed the chart notes.
Plan: GIP Hospice continues.
--- NOTE | 2024-08-08 10:40 | PTCARENOTE ---
Patient with no heart tones upon auscultation. MD made aware. Patients wafer fabrication operator at bedside.
--- NOTE | 2024-08-08 11:43 | W.PN.DEATH ---
Pronouncement of
-
Called to see patient to pronounce.
No spontaneous heart tones or respirations noted.
Patient not responsive to verbal stimuli.
Patient is pronounced .
Time of : 10:40
Date of : 08/08/24
Cause of : Acute Hypoxic Respiratory Failure
Pulmonary embolus
Anemia with left upper extremity hematoma
Lactic acidosis
Shock
Family Notified: Yes
--- NOTE | 2024-08-08 11:55 | W.DCSUMMARY ---
Discharge Summary
Discharge Data
Date of Admission: 08/06/24
Date of Discharge: 08/08/24
-
Pending Results: No
Hospital Course
Discharge diagnosis:
Inpatient hospice
Acute hypoxic respiratory failure
Shock
Pulmonary embolism
Hospital course:
79-year-old female with past medical history of anxiety, depression, CAD, CVA, chronic sacral decubitus ulcer, ulcerative colitis was admitted under inpatient hospice due to declining clinical status. Patient was admitted on inpatient hospice with
IV morphine. Patient later on 08/08/2024 at 10:40 AM.
Discharge Plan
-
Patient Disposition:
Date/Time
Date/Time: 08/08/24 10:40
Discharge Date and Time
Discharge Date/Time: 08/08/24 13:06
Print Language: LATVIAN
--- NOTE | 2024-08-08 12:19 | HOSPNOTE ---
Addendum entered by Hilda Tijerina RN 08/08/24 12:32:
Correction patient inpatient hospice. Son was notified and is grieving appropriately.
Original Note:
Patient peacefully on comfort measures.
== END 2024-08-08 13:06 | disposition expired | DRG 951 ==
LOC: 2 NORTH 08:01
PROVIDERS: ADMITTING PHYSICIAN Hospitalist; ATTENDING PHYSICIAN Internal Medicine
DX: Z51.5 Encounter for palliative care (principal); I26.99 Other pulmonary embolism without acute cor pulmonale; J96.01 Acute respiratory failure with hypoxia; E87.20 Acidosis, unspecified; D64.9 Anemia, unspecified; Z66 Do not resuscitate